=== PATIENT | male | born 1935 | race Caucasian/White ===

== ENCOUNTER 2018-08-01 10:41 | Inpatient (IN) | payer MEDICARE, OTHER ==
[~2018-08-01] VITALS: Ht 172.7 cm; Wt 71.8 kg
[2018-08-01] MEDS: K, MAG and/or Phos replacement - Verify level? MC SCH (08:00)
[2018-08-01] MEDS: pantoprazole 40 MG vial IV SCH (08:00)
[2018-08-01 11:51] LABS: BASOPHILS % (AUTO) 0.3 % (0-1); EOSINOPHILS # (AUTO) 0.2 X10'3 (0-0.9); EOSINOPHILS % (AUTO) 1.9 % (0-6); HEMATOCRIT 44.7 % (42.0-52.0); HEMOGLOBIN 14.8 g/dl (14.0-17.9); LYMPHOCYTES % (AUTO) 9.5 % (21-51); MEAN CORPUSCULAR HEMOGLOBIN 33.4 PG (27.0-31.0); MEAN CORPUSCULAR HGB CONC 33.2 % (33.0-36.5); MEAN CORPUSCULAR VOLUME 100.5 FL (78-98); MEAN PLATELET VOLUME 8.1 FL (7.4-10.4); MONOCYTES # (AUTO) 0.7 X10'3 (0-0.9); MONOCYTES % (AUTO) 6.8 % (2-12); NEUTROPHILS # (AUTO) 8.6 X10'3 (1.8-7.7); NEUTROPHILS % (AUTO) 81.5 % (42-75); PLATELET COUNT 302 X10'3 (140-440); RED BLOOD COUNT 4.44 X10'6 (4.70-6.10); RED CELL DISTRIBUTION WIDTH 17.2 % (11.5-14.5); WHITE BLOOD COUNT 10.6 X10'3 (4.5-11.0)
[2018-08-01] MEDS ORDERED: heparin 25,000 UNIT/250ml bag 250 ML IV SCH (11:59)
[2018-08-01] MEDS ORDERED: heparin 10,000 units/1 ML INJ IV ONE ×2 (12:00→12:09)
[2018-08-01] MEDS ORDERED: heparin 10,000 units/1 ML INJ IV PRN (12:00)
[2018-08-01 12:01] LABS: PARTIAL THROMBOPLASTIN TIME 26 SECONDS (22-32); PROTHROMBIN TIME 10.3 SECONDS (9.0-12.0)
[2018-08-01 12:10] LABS: ALANINE AMINOTRANSFERASE 18 U/L (12-78); ALBUMIN 3.1 G/DL (3.4-5.0); ALBUMIN/GLOBULIN RATIO 0.7 (1.1-1.5); ALKALINE PHOSPHATASE 75 IU/L (46-116); ANION GAP 13 (8-16); ASPARTATE AMINO TRANSFERASE 59 U/L (10-37); BILIRUBIN,TOTAL 0.2 MG/DL (0.1-1.0); BLOOD UREA NITROGEN 36 MG/DL (7-18); BUN/CREATININE RATIO 21.7 (5.4-32.0); CALCIUM 9.6 MG/DL (8.5-10.1); CHLORIDE 105 MMOL/L (99-107); CREATININE 1.66 MG/DL (0.60-1.10); GLUCOSE 106 MG/DL (70-104); POTASSIUM 3.9 MMOL/L (3.5-5.1); SODIUM 140 MMOL/L (135-145); TOTAL CARBON DIOXIDE 22.3 MMOL/L (24-32); TOTAL PROTEIN 7.6 G/DL (6.4-8.2); eGFR 40 ML/MIN
[2018-08-01] MEDS ORDERED: normal saline 1000ml 1,000 ML IV SCH (13:13)
[2018-08-01] MEDS ORDERED: midazolam 2 mg/2 ml injection IV PRN (13:15)
[2018-08-01] MEDS ORDERED: fentaNYL/PF 50MCG/1 ML 2ML syringe IV PRN (13:15)
[2018-08-01] MEDS ORDERED: midazolam 2 mg/2 ml injection ONE (13:20)
[2018-08-01] MEDS ORDERED: heparin 1,000 UNITS/NS 500ml 500 ML ONE ×2 (13:21→14:53)
[2018-08-01] MEDS ORDERED: iohexol 300mg/ml 100ml inj. ONE (13:21)
[2018-08-01] MEDS ORDERED: fentaNYL/PF 50MCG/1 ML 2ML syringe ONE (13:21)
[2018-08-01] MEDS ORDERED: LIDOcaine 1% (10mg/ml) 2ml vial ONE ×2 (13:23→15:19)
[2018-08-01] MEDS ORDERED: heparin 10,000 units/1 ML INJ ONE (15:19)
[2018-08-01] MEDS ORDERED: iohexol 300 MG/1 ML 50ml polymer ONE ×2 (15:35→21:20)
[2018-08-01 15:41] VITALS: BP 150/67
[2018-08-01 15:58] VITALS: BP 150/67
[2018-08-01] MEDS ORDERED: AMLO1TAB36 (16:07)
[2018-08-01] MEDS ORDERED: AMLO-93 PO (16:17)
[2018-08-01] MEDS ORDERED: ceFAZolin 2gm in dextrose, iso 100 ML IV ONE (16:45)
[2018-08-01] MEDS ORDERED: fentaNYL /PF 50mcg/ml 5ml ampule ONE ×2 (17:08→19:30)
[2018-08-01] MEDS ORDERED: rocuronium 10mg/ml inj IV ONE ×2 (17:30→20:56)
[2018-08-01] MEDS ORDERED: magnesium hydroxide 30ml (MOM) UD suspension PO PRN (17:30)
[2018-08-01] MEDS ORDERED: LIDOcaine 2% (20mg/ml) 5ml vial ONE (17:30)
[2018-08-01] MEDS ORDERED: propofol inj 20 ML IV ONE (17:30)
[2018-08-01] MEDS ORDERED: sodium phosphate inj. 30 MMOL in dextrose 5%-water 250 ML IV PRN (17:30)
[2018-08-01] MEDS ORDERED: Neutra Phos packet PO PRN (17:30)
[2018-08-01] MEDS ORDERED: magnesium Cl slow-release 64mg tablet PO PRN (17:30)
[2018-08-01] MEDS ORDERED: ondansetron/PF 4mg/2ml inj IV PRN ×4 (17:30→22:30)
[2018-08-01] MEDS ORDERED: morphine 2 MG/ML inj. syringe IV PRN (17:30)
[2018-08-01] MEDS ORDERED: sodium phosphate inj. 15 MMOL in dextrose 5%-water 150 ML IV PRN (17:30)
[2018-08-01] MEDS ORDERED: magnesium 1gm/100ml D5W IVPB 100 ML IV PRN (17:30)
[2018-08-01] MEDS ORDERED: potassium Cl 20 mEq SR tablet PO PRN ×2 (17:30)
[2018-08-01] MEDS ORDERED: magnesium 4gm in 100ml NS 100 ML IV PRN (17:30)
[2018-08-01] MEDS ORDERED: acetaminophen 325mg tablet PO PRN ×2 (17:30)
[2018-08-01] MEDS ORDERED: sevoflurane 250ml liquid IH ONE (17:32)
[2018-08-01] MEDS ORDERED: nitroGLYCERIN-Tridil 50MG/D5W 250 ML IV ONE (19:31)
[2018-08-01] MEDS ORDERED: ringers solution, lacted 1,000 ML IV SCH ×2 (21:49→21:51)
[2018-08-01] MEDS ORDERED: morphine 4 MG/ML inj SYRINge IV PRN ×4 (21:50→21:55)
[2018-08-01] MEDS ORDERED: meperidine/PF 25mg/ml syringe IV PRN ×6 (21:50→21:55)
[2018-08-01] MEDS ORDERED: proCHLORperazine 10 MG/2 ml inj IV PRN ×2 (21:50→21:55)
[2018-08-01 21:53] LABS: HEMATOCRIT 31.5 % (42.0-52.0); HEMOGLOBIN 10.4 g/dl (14.0-17.9); MEAN CORPUSCULAR HEMOGLOBIN 33.2 PG (27.0-31.0); MEAN CORPUSCULAR HGB CONC 32.9 % (33.0-36.5); MEAN CORPUSCULAR VOLUME 100.9 FL (78-98); MEAN PLATELET VOLUME 8.4 FL (7.4-10.4); PLATELET COUNT 211 X10'3 (140-440); RED BLOOD COUNT 3.12 X10'6 (4.70-6.10); RED CELL DISTRIBUTION WIDTH 17.5 % (11.5-14.5); WHITE BLOOD COUNT 7.2 X10'3 (4.5-11.0)
[2018-08-01 22:30] VITALS: BP 110/69
[2018-08-01 22:41] LABS: INR 1.2 INR; PROTHROMBIN TIME 12.5 SECONDS (9.0-12.0)
[2018-08-01] MEDS ORDERED: LORazepam 2 mg/ml vial ONE (22:43)
[2018-08-01 22:45] LABS: PARTIAL THROMBOPLASTIN TIME > 153 SECONDS (22-32)
[2018-08-01] MEDS ORDERED: dextrose 50%-water 50ml dispensing syringe IV PRN (22:45)
[2018-08-01] MEDS ORDERED: LORazepam 2 mg/ml vial IV PRN (22:45)
[2018-08-01] MEDS ORDERED: haloperidol lactate 5mg/ml inj IM PRN (22:45)
[2018-08-01] MEDS ORDERED: thiamine inj. 100 MG in normal saline 100ml IV soln 100 ML IV ONE (22:45)
[2018-08-01] MEDS ORDERED: LORazepam 2 mg/ml vial IV ONE (22:45)
[2018-08-01] MEDS: morphine 4 MG/ML inj SYRINge IV PRN (22:52)
[2018-08-01] MEDS: docusate sod 100mg capsule PO SCH (22:58)
[2018-08-01 23:00] VITALS: BP 104/50
[2018-08-01] MEDS: normal saline 1000ml 1,000 ML IV SCH (23:00)
[2018-08-01] MEDS: ceFAZolin inj. 1,000 MG in dextrose 5%-water 50ml 50 ML IV SCH (23:44)
[2018-08-01] MEDS: Potassium Cl inj 20 MEQ in ringers solution, lacted 1,000 ML IV SCH (23:44)
[2018-08-02] VITALS (23 sets, daily range): BP systolic 92–158; BP diastolic 50–77
[2018-08-02 02:45] LABS: BASOPHILS % (AUTO) 0.1 % (0-1); EOSINOPHILS # (AUTO) 0.2 X10'3 (0-0.9); EOSINOPHILS % (AUTO) 1.6 % (0-6); HEMATOCRIT 33.3 % (42.0-52.0); LYMPHOCYTES # (AUTO) 0.6 X10'3 (1.1-4.8); MEAN CORPUSCULAR HEMOGLOBIN 33.5 PG (27.0-31.0); MEAN CORPUSCULAR HGB CONC 32.9 % (33.0-36.5); MEAN CORPUSCULAR VOLUME 101.7 FL (78-98); MEAN PLATELET VOLUME 8.1 FL (7.4-10.4); MONOCYTES # (AUTO) 0.3 X10'3 (0-0.9); MONOCYTES % (AUTO) 2.4 % (2-12); NEUTROPHILS # (AUTO) 9.6 X10'3 (1.8-7.7); NEUTROPHILS % (AUTO) 89.9 % (42-75); PLATELET COUNT 227 X10'3 (140-440); RED BLOOD COUNT 3.27 X10'6 (4.70-6.10); RED CELL DISTRIBUTION WIDTH 16.7 % (11.5-14.5); WHITE BLOOD COUNT 10.7 X10'3 (4.5-11.0)
[2018-08-02 03:06] LABS: ALANINE AMINOTRANSFERASE 17 U/L (12-78); ALBUMIN 2.6 G/DL (3.4-5.0); ALBUMIN/GLOBULIN RATIO 0.8 (1.1-1.5); ALKALINE PHOSPHATASE 45 IU/L (46-116); AMYLASE 78 U/L (25-115); ANION GAP 12 (8-16); ASPARTATE AMINO TRANSFERASE 48 U/L (10-37); BILIRUBIN,TOTAL 0.2 MG/DL (0.1-1.0); BLOOD UREA NITROGEN 32 MG/DL (7-18); BUN/CREATININE RATIO 22.4 (5.4-32.0); CALCIUM 7.8 MG/DL (8.5-10.1); CHLORIDE 109 MMOL/L (99-107); CREATININE 1.43 MG/DL (0.60-1.10); GLUCOSE 117 MG/DL (70-104); LIPASE 112 U/L (73-393); MAGNESIUM 1.8 MG/DL (1.5-2.4); PHOSPHORUS 3.5 MG/DL (2.3-4.5); POTASSIUM 4.1 MMOL/L (3.5-5.1); SODIUM 142 MMOL/L (135-145); TOTAL CARBON DIOXIDE 21.2 MMOL/L (24-32); TOTAL PROTEIN 5.7 G/DL (6.4-8.2); eGFR 47 ML/MIN
[2018-08-02 03:07] LABS: INR 1.1 INR; PARTIAL THROMBOPLASTIN TIME 35 SECONDS (22-32); PROTHROMBIN TIME 10.7 SECONDS (9.0-12.0)
[2018-08-02] MEDS: LORazepam 2 mg/ml vial IV PRN ×2 (04:21→07:59)
[2018-08-02] MEDS: K, MAG and/or Phos replacement - Verify level? MC SCH (06:36)
[2018-08-02] MEDS: Potassium Cl inj 20 MEQ in ringers solution, lacted 1,000 ML IV SCH ×2 (06:43→15:08)
[2018-08-02] MEDS: normal saline 1000ml 1,000 ML IV SCH ×2 (06:44→20:06)
[2018-08-02] MEDS: nicotine 21mg patch - 24 hr TD SCH (07:48)
[2018-08-02] MEDS: pantoprazole 40 MG vial IV SCH (07:48)
[2018-08-02] MEDS: ceFAZolin inj. 1,000 MG in dextrose 5%-water 50ml 50 ML IV SCH ×2 (07:48→15:08)
[2018-08-02] MEDS: docusate sod 100mg capsule PO SCH ×2 (07:48→19:37)
[2018-08-02] MEDS: clopidogrel 75mg tablet PO SCH ×2 (08:00→08:37)
[2018-08-02] MEDS: folic acid inj. 2 MG, thiamine inj. 100 MG, MVI, adult No.4 with vit. K 10 ML in dextro... IV SCH ×4 (08:37)
[2018-08-02] MEDS ORDERED: LIDOcaine 1%/PF 5ML 10 MG/ML VIAL ONE (11:29)
[2018-08-02] MEDS: diphenhydrAMINE 25mg capsule PO PRN (19:37)
[2018-08-02] MEDS: apixaban 5mg tablet PO SCH (19:37)
[2018-08-02] MEDS: HYDROcodone/acetaminophen 10/325mg tab PO PRN (23:12)
[2018-08-03] VITALS (24 sets, daily range): BP systolic 81–143; BP diastolic 45–77
[2018-08-03] MEDS: morphine 4 MG/ML inj SYRINge IV PRN (00:35)
[2018-08-03] MEDS: Potassium Cl inj 20 MEQ in ringers solution, lacted 1,000 ML IV SCH ×4 (01:50→22:19)
[2018-08-03] MEDS: diphenhydrAMINE 25mg capsule PO PRN ×3 (02:08→19:58)
[2018-08-03 03:01] LABS: PARTIAL THROMBOPLASTIN TIME 30 SECONDS (22-32); PROTHROMBIN TIME 10.6 SECONDS (9.0-12.0)
[2018-08-03 03:09] LABS: BASOPHILS % (AUTO) 0 % (0-1); EOSINOPHILS # (AUTO) 0.1 X10'3 (0-0.9); EOSINOPHILS % (AUTO) 1.6 % (0-6); HEMATOCRIT 28.9 % (42.0-52.0); HEMOGLOBIN 9.6 g/dl (14.0-17.9); LYMPHOCYTES # (AUTO) 0.8 X10'3 (1.1-4.8); LYMPHOCYTES % (AUTO) 8.6 % (21-51); MEAN CORPUSCULAR HEMOGLOBIN 33.8 PG (27.0-31.0); MEAN CORPUSCULAR HGB CONC 33.3 % (33.0-36.5); MEAN CORPUSCULAR VOLUME 101.6 FL (78-98); MEAN PLATELET VOLUME 8.3 FL (7.4-10.4); MONOCYTES # (AUTO) 0.8 X10'3 (0-0.9); MONOCYTES % (AUTO) 8.6 % (2-12); NEUTROPHILS # (AUTO) 7.3 X10'3 (1.8-7.7); NEUTROPHILS % (AUTO) 81.2 % (42-75); PLATELET COUNT 207 X10'3 (140-440); RED BLOOD COUNT 2.84 X10'6 (4.70-6.10); RED CELL DISTRIBUTION WIDTH 17.1 % (11.5-14.5); WHITE BLOOD COUNT 8.9 X10'3 (4.5-11.0)
[2018-08-03 03:14] LABS: ALANINE AMINOTRANSFERASE 12 U/L (12-78); ALBUMIN 2.2 G/DL (3.4-5.0); ALBUMIN/GLOBULIN RATIO 0.7 (1.1-1.5); ALKALINE PHOSPHATASE 48 IU/L (46-116); AMYLASE 209 U/L (25-115); ANION GAP 9 (8-16); ASPARTATE AMINO TRANSFERASE 39 U/L (10-37); BILIRUBIN,TOTAL 0.2 MG/DL (0.1-1.0); BLOOD UREA NITROGEN 24 MG/DL (7-18); BUN/CREATININE RATIO 17.8 (5.4-32.0); CALCIUM 7.4 MG/DL (8.5-10.1); CHLORIDE 108 MMOL/L (99-107); CREATININE 1.35 MG/DL (0.60-1.10); GLUCOSE 110 MG/DL (70-104); LIPASE 1113 U/L (73-393); MAGNESIUM 1.6 MG/DL (1.5-2.4); PHOSPHORUS 2.6 MG/DL (2.3-4.5); POTASSIUM 4.1 MMOL/L (3.5-5.1); SODIUM 140 MMOL/L (135-145); TOTAL CARBON DIOXIDE 22.6 MMOL/L (24-32); TOTAL PROTEIN 5.4 G/DL (6.4-8.2); eGFR 50 ML/MIN
[2018-08-03] MEDS: lisinopril 20mg tablet PO SCH (08:00)
[2018-08-03] MEDS: K, MAG and/or Phos replacement - Verify level? MC SCH (08:00)
[2018-08-03] MEDS: amLODIPine 5mg tablet PO SCH (08:00)
[2018-08-03] MEDS: docusate sod 100mg capsule PO SCH ×2 (08:11→19:58)
[2018-08-03] MEDS: clopidogrel 75mg tablet PO SCH (08:11)
[2018-08-03] MEDS: apixaban 5mg tablet PO SCH ×2 (08:11→19:58)
[2018-08-03] MEDS: nicotine 21mg patch - 24 hr TD SCH (08:28)
[2018-08-03] MEDS: pantoprazole 40 MG vial IV SCH (08:29)
[2018-08-03] MEDS: HYDROcodone/acetaminophen 10/325mg tab PO PRN ×3 (08:32→22:18)
[2018-08-03] MEDS: folic acid inj. 2 MG, thiamine inj. 100 MG, MVI, adult No.4 with vit. K 10 ML in dextro... IV SCH ×4 (08:47)
[2018-08-03] MEDS: normal saline 1000ml 1,000 ML IV SCH ×2 (09:26→22:46)
[2018-08-03] MEDS: CefTRIAXone 2gm/D5W 50ml 50 ML IV SCH (19:59)
[2018-08-03] MEDS ORDERED: ceFAZolin 1GM/D5W- ADD-VANTAGE 50 ML IV SCH (20:00)
[2018-08-04] VITALS (23 sets, daily range): BP systolic 92–151; BP diastolic 43–80
[2018-08-04] MEDS: Potassium Cl inj 20 MEQ in ringers solution, lacted 1,000 ML IV SCH ×3 (00:30→14:00)
[2018-08-04] MEDS ORDERED: ceFAZolin 1GM/D5W- ADD-VANTAGE 50 ML IV ONE (01:30)
[2018-08-04] MEDS: diphenhydrAMINE 25mg capsule PO PRN ×4 (02:54→21:21)
[2018-08-04] MEDS: HYDROcodone/acetaminophen 10/325mg tab PO PRN ×4 (02:54→21:22)
[2018-08-04 04:53] LABS: BASOPHILS % (AUTO) 0.1 % (0-1); EOSINOPHILS # (AUTO) 0.2 X10'3 (0-0.9); EOSINOPHILS % (AUTO) 2.3 % (0-6); HEMATOCRIT 29.4 % (42.0-52.0); HEMOGLOBIN 9.5 g/dl (14.0-17.9); LYMPHOCYTES # (AUTO) 1.1 X10'3 (1.1-4.8); LYMPHOCYTES % (AUTO) 13.5 % (21-51); MEAN CORPUSCULAR HEMOGLOBIN 32.9 PG (27.0-31.0); MEAN CORPUSCULAR HGB CONC 32.2 % (33.0-36.5); MEAN CORPUSCULAR VOLUME 102.2 FL (78-98); MEAN PLATELET VOLUME 8.6 FL (7.4-10.4); MONOCYTES # (AUTO) 0.6 X10'3 (0-0.9); MONOCYTES % (AUTO) 7.6 % (2-12); NEUTROPHILS # (AUTO) 6.3 X10'3 (1.8-7.7); NEUTROPHILS % (AUTO) 76.5 % (42-75); PLATELET COUNT 207 X10'3 (140-440); RED BLOOD COUNT 2.88 X10'6 (4.70-6.10); RED CELL DISTRIBUTION WIDTH 17.1 % (11.5-14.5); WHITE BLOOD COUNT 8.3 X10'3 (4.5-11.0)
[2018-08-04 05:32] LABS: ALANINE AMINOTRANSFERASE 9 U/L (12-78); ALBUMIN/GLOBULIN RATIO 0.6 (1.1-1.5); ALKALINE PHOSPHATASE 48 IU/L (46-116); AMYLASE 140 U/L (25-115); ANION GAP 8 (8-16); ASPARTATE AMINO TRANSFERASE 34 U/L (10-37); BILIRUBIN,TOTAL 0.2 MG/DL (0.1-1.0); BLOOD UREA NITROGEN 22 MG/DL (7-18); BUN/CREATININE RATIO 17.3 (5.4-32.0); CALCIUM 7.6 MG/DL (8.5-10.1); CHLORIDE 108 MMOL/L (99-107); CREATININE 1.27 MG/DL (0.60-1.10); GLUCOSE 92 MG/DL (70-104); LIPASE 542 U/L (73-393); MAGNESIUM 1.5 MG/DL (1.5-2.4); PARTIAL THROMBOPLASTIN TIME 36 SECONDS (22-32); PHOSPHORUS 1.8 MG/DL (2.3-4.5); POTASSIUM 4.3 MMOL/L (3.5-5.1); PROTHROMBIN TIME 10.4 SECONDS (9.0-12.0); SODIUM 140 MMOL/L (135-145); TOTAL CARBON DIOXIDE 23.9 MMOL/L (24-32); TOTAL PROTEIN 5.2 G/DL (6.4-8.2); eGFR 54 ML/MIN
[2018-08-04] MEDS: K, MAG and/or Phos replacement - Verify level? MC SCH (08:00)
[2018-08-04] MEDS: amLODIPine 5mg tablet PO SCH (08:47)
[2018-08-04] MEDS: lisinopril 20mg tablet PO SCH (08:47)
[2018-08-04] MEDS: clopidogrel 75mg tablet PO SCH (08:47)
[2018-08-04] MEDS: thiamine 100mg tablet PO SCH (08:48)
[2018-08-04] MEDS: apixaban 5mg tablet PO SCH ×2 (08:48→19:30)
[2018-08-04] MEDS: docusate sod 100mg capsule PO SCH ×2 (08:48→19:30)
[2018-08-04] MEDS: multivitamins, therapeutics tablet PO SCH (08:48)
[2018-08-04] MEDS: folic acid 1mg tablet PO SCH (08:49)
[2018-08-04] MEDS: nicotine 21mg patch - 24 hr TD SCH (08:50)
[2018-08-04] MEDS: CefTRIAXone 2gm/D5W 50ml 50 ML IV SCH (08:50)
[2018-08-04] MEDS: pantoprazole 40mg Tablet.DR PO SCH (08:56)
[2018-08-04] MEDS: normal saline 1000ml 1,000 ML IV SCH (11:30)
[2018-08-04 13:11] LABS: CREATINE KINASE 600 U/L (39-308)
[2018-08-04 17:57] LABS: HEMATOCRIT 24.9 % (42.0-52.0); HEMOGLOBIN 8.1 g/dl (14.0-17.9); MEAN CORPUSCULAR HEMOGLOBIN 32.9 PG (27.0-31.0); MEAN CORPUSCULAR HGB CONC 32.5 % (33.0-36.5); MEAN CORPUSCULAR VOLUME 101.1 FL (78-98); MEAN PLATELET VOLUME 7.8 FL (7.4-10.4); PLATELET COUNT 196 X10'3 (140-440); RED BLOOD COUNT 2.46 X10'6 (4.70-6.10); RED CELL DISTRIBUTION WIDTH 16.8 % (11.5-14.5); WHITE BLOOD COUNT 7.6 X10'3 (4.5-11.0)
[2018-08-04] MEDS: cefazolin/dext.iso 2gm/100ml 100 ML IV SCH (20:07)
[2018-08-05] VITALS (22 sets, daily range): BP systolic 85–168; BP diastolic 51–86
[2018-08-05] MEDS: cefazolin/dext.iso 2gm/100ml 100 ML IV SCH (00:38)
[2018-08-05] MEDS: HYDROcodone/acetaminophen 10/325mg tab PO PRN ×3 (01:54→20:12)
[2018-08-05] MEDS: diphenhydrAMINE 25mg capsule PO PRN ×2 (03:35→17:07)
[2018-08-05 03:43] LABS: BASOPHILS # (AUTO) 0.1 X10'3 (0-0.2); BASOPHILS % (AUTO) 0.8 % (0-1); EOSINOPHILS # (AUTO) 0.4 X10'3 (0-0.9); EOSINOPHILS % (AUTO) 5.2 % (0-6); HEMATOCRIT 24.1 % (42.0-52.0); LYMPHOCYTES # (AUTO) 0.9 X10'3 (1.1-4.8); LYMPHOCYTES % (AUTO) 10.9 % (21-51); MEAN CORPUSCULAR HEMOGLOBIN 33.5 PG (27.0-31.0); MEAN CORPUSCULAR VOLUME 101.4 FL (78-98); MEAN PLATELET VOLUME 7.9 FL (7.4-10.4); MONOCYTES # (AUTO) 0.6 X10'3 (0-0.9); MONOCYTES % (AUTO) 8.3 % (2-12); NEUTROPHILS # (AUTO) 5.8 X10'3 (1.8-7.7); NEUTROPHILS % (AUTO) 74.8 % (42-75); PLATELET COUNT 205 X10'3 (140-440); RED BLOOD COUNT 2.38 X10'6 (4.70-6.10); RED CELL DISTRIBUTION WIDTH 17.1 % (11.5-14.5); WHITE BLOOD COUNT 7.8 X10'3 (4.5-11.0)
[2018-08-05 03:57] LABS: ALANINE AMINOTRANSFERASE 6 U/L (12-78); ALBUMIN 1.6 G/DL (3.4-5.0); ALBUMIN/GLOBULIN RATIO 0.5 (1.1-1.5); ALKALINE PHOSPHATASE 51 IU/L (46-116); AMYLASE 107 U/L (25-115); ANION GAP 6 (8-16); ASPARTATE AMINO TRANSFERASE 26 U/L (10-37); BILIRUBIN,TOTAL 0.2 MG/DL (0.1-1.0); BLOOD UREA NITROGEN 20 MG/DL (7-18); BUN/CREATININE RATIO 14.3 (5.4-32.0); CALCIUM 7.3 MG/DL (8.5-10.1); CHLORIDE 107 MMOL/L (99-107); GLUCOSE 90 MG/DL (70-104); LIPASE 511 U/L (73-393); MAGNESIUM 1.6 MG/DL (1.5-2.4); POTASSIUM 4.8 MMOL/L (3.5-5.1); SODIUM 137 MMOL/L (135-145); TOTAL CARBON DIOXIDE 24.2 MMOL/L (24-32); TOTAL PROTEIN 4.6 G/DL (6.4-8.2); eGFR 48 ML/MIN
[2018-08-05 04:18] LABS: INR 1.1 INR; PARTIAL THROMBOPLASTIN TIME 41 SECONDS (22-32); PROTHROMBIN TIME 11.2 SECONDS (9.0-12.0)
[2018-08-05] MEDS ORDERED: cefazolin/dext.iso 2gm/50ml 100 ML IV SCH (07:10)
[2018-08-05] MEDS: apixaban 5mg tablet PO SCH ×2 (07:26→20:12)
[2018-08-05] MEDS: clopidogrel 75mg tablet PO SCH (07:27)
[2018-08-05] MEDS: docusate sod 100mg capsule PO SCH ×2 (07:27→20:12)
[2018-08-05] MEDS: multivitamins, therapeutics tablet PO SCH (07:27)
[2018-08-05] MEDS: pantoprazole 40mg Tablet.DR PO SCH (07:27)
[2018-08-05] MEDS: folic acid 1mg tablet PO SCH (07:27)
[2018-08-05] MEDS: thiamine 100mg tablet PO SCH (07:27)
[2018-08-05] MEDS: lisinopril 20mg tablet PO SCH (07:28)
[2018-08-05] MEDS: amLODIPine 5mg tablet PO SCH (07:29)
[2018-08-05] MEDS: nicotine 21mg patch - 24 hr TD SCH (07:29)
[2018-08-05] MEDS: cefazolin/dext.iso 2gm/50ml 50 ML IV SCH ×2 (07:30→16:45)
[2018-08-05] MEDS: K, MAG and/or Phos replacement - Verify level? MC SCH (08:00)
[2018-08-06] VITALS (23 sets, daily range): BP systolic 94–157; BP diastolic 52–75
[2018-08-06] MEDS: cefazolin/dext.iso 2gm/50ml 50 ML IV SCH ×3 (00:46→15:44)
[2018-08-06] MEDS: HYDROcodone/acetaminophen 10/325mg tab PO PRN (01:13)
[2018-08-06] MEDS: diphenhydrAMINE 25mg capsule PO PRN ×4 (01:13→21:18)
[2018-08-06 03:42] LABS: BASOPHILS # (AUTO) 0.1 X10'3 (0-0.2); BASOPHILS % (AUTO) 0.8 % (0-1); EOSINOPHILS # (AUTO) 0.5 X10'3 (0-0.9); EOSINOPHILS % (AUTO) 6.5 % (0-6); HEMATOCRIT 23.6 % (42.0-52.0); HEMOGLOBIN 7.6 g/dl (14.0-17.9); LYMPHOCYTES # (AUTO) 0.8 X10'3 (1.1-4.8); LYMPHOCYTES % (AUTO) 10.2 % (21-51); MEAN CORPUSCULAR HEMOGLOBIN 32.9 PG (27.0-31.0); MEAN CORPUSCULAR VOLUME 102.8 FL (78-98); MEAN PLATELET VOLUME 8.1 FL (7.4-10.4); MONOCYTES # (AUTO) 0.7 X10'3 (0-0.9); MONOCYTES % (AUTO) 8.9 % (2-12); NEUTROPHILS # (AUTO) 5.8 X10'3 (1.8-7.7); NEUTROPHILS % (AUTO) 73.6 % (42-75); PLATELET COUNT 268 X10'3 (140-440); WHITE BLOOD COUNT 7.9 X10'3 (4.5-11.0)
[2018-08-06 03:54] LABS: INR 1.9 INR; PARTIAL THROMBOPLASTIN TIME 38 SECONDS (22-32); PROTHROMBIN TIME 11.1 SECONDS (9.0-12.0)
[2018-08-06 04:08] LABS: ALBUMIN 1.7 G/DL (3.4-5.0); ALBUMIN/GLOBULIN RATIO 0.5 (1.1-1.5); ALKALINE PHOSPHATASE 48 IU/L (46-116); AMYLASE 105 U/L (25-115); ANION GAP 8 (8-16); ASPARTATE AMINO TRANSFERASE 23 U/L (10-37); BILIRUBIN,TOTAL 0.3 MG/DL (0.1-1.0); BLOOD UREA NITROGEN 20 MG/DL (7-18); BUN/CREATININE RATIO 12.9 (5.4-32.0); CALCIUM 7.4 MG/DL (8.5-10.1); CHLORIDE 106 MMOL/L (99-107); CREATININE 1.55 MG/DL (0.60-1.10); GLUCOSE 94 MG/DL (70-104); LIPASE 497 U/L (73-393); MAGNESIUM 1.8 MG/DL (1.5-2.4); PHOSPHORUS 2.6 MG/DL (2.3-4.5); POTASSIUM 4.2 MMOL/L (3.5-5.1); SODIUM 139 MMOL/L (135-145); TOTAL CARBON DIOXIDE 25.2 MMOL/L (24-32); eGFR 43 ML/MIN
[2018-08-06 04:32] LABS: ALANINE AMINOTRANSFERASE < 6 U/L (12-78)
[2018-08-06] MEDS: K, MAG and/or Phos replacement - Verify level? MC SCH (07:34)
[2018-08-06] MEDS: docusate sod 100mg capsule PO SCH ×2 (08:00→20:00)
[2018-08-06] MEDS: nicotine 21mg patch - 24 hr TD SCH (08:44)
[2018-08-06] MEDS: lisinopril 20mg tablet PO SCH (08:45)
[2018-08-06] MEDS: clopidogrel 75mg tablet PO SCH (08:45)
[2018-08-06] MEDS: apixaban 5mg tablet PO SCH ×2 (08:46→20:22)
[2018-08-06] MEDS: thiamine 100mg tablet PO SCH (08:46)
[2018-08-06] MEDS: pantoprazole 40mg Tablet.DR PO SCH (08:46)
[2018-08-06] MEDS: amLODIPine 5mg tablet PO SCH (08:46)
[2018-08-06] MEDS: folic acid 1mg tablet PO SCH (08:46)
[2018-08-06] MEDS: multivitamins, therapeutics tablet PO SCH (08:46)
[2018-08-06] MEDS: lactobacillus rhamnosus 10,000 MMU CELLS/CAPSULE PO SCH (20:22)
[2018-08-07] VITALS (24 sets, daily range): BP systolic 112–162; BP diastolic 56–83
[2018-08-07] MEDS: cefazolin/dext.iso 2gm/50ml 50 ML IV SCH ×2 (00:30→08:41)
[2018-08-07 05:36] LABS: ALANINE AMINOTRANSFERASE 6 U/L (12-78); ALBUMIN 1.8 G/DL (3.4-5.0); ALBUMIN/GLOBULIN RATIO 0.5 (1.1-1.5); ALKALINE PHOSPHATASE 52 IU/L (46-116); ANION GAP 12 (8-16); ASPARTATE AMINO TRANSFERASE 20 U/L (10-37); BILIRUBIN,TOTAL 0.3 MG/DL (0.1-1.0); BLOOD UREA NITROGEN 16 MG/DL (7-18); BUN/CREATININE RATIO 10.4 (5.4-32.0); CALCIUM 7.9 MG/DL (8.5-10.1); CHLORIDE 106 MMOL/L (99-107); CREATININE 1.54 MG/DL (0.60-1.10); GLUCOSE 95 MG/DL (70-104); MAGNESIUM 1.9 MG/DL (1.5-2.4); PHOSPHORUS 2.5 MG/DL (2.3-4.5); POTASSIUM 4.2 MMOL/L (3.5-5.1); SODIUM 142 MMOL/L (135-145); TOTAL CARBON DIOXIDE 24.3 MMOL/L (24-32); TOTAL PROTEIN 5.2 G/DL (6.4-8.2); eGFR 43 ML/MIN
[2018-08-07 05:48] LABS: INR 1.2 INR; PARTIAL THROMBOPLASTIN TIME 39 SECONDS (22-32); PROTHROMBIN TIME 11.7 SECONDS (9.0-12.0)
[2018-08-07] MEDS: K, MAG and/or Phos replacement - Verify level? MC SCH (06:58)
[2018-08-07] MEDS: docusate sod 100mg capsule PO SCH ×2 (06:59→20:00)
[2018-08-07] MEDS: diphenhydrAMINE 25mg capsule PO PRN ×3 (08:41→20:32)
[2018-08-07] MEDS: apixaban 5mg tablet PO SCH ×2 (08:41→20:32)
[2018-08-07] MEDS: clopidogrel 75mg tablet PO SCH (08:41)
[2018-08-07] MEDS: nicotine 21mg patch - 24 hr TD SCH (08:41)
[2018-08-07] MEDS: multivitamins, therapeutics tablet PO SCH (08:41)
[2018-08-07] MEDS: thiamine 100mg tablet PO SCH (08:41)
[2018-08-07] MEDS: amLODIPine 5mg tablet PO SCH (08:42)
[2018-08-07] MEDS: pantoprazole 40mg Tablet.DR PO SCH (08:42)
[2018-08-07] MEDS: lisinopril 20mg tablet PO SCH (08:42)
[2018-08-07] MEDS: folic acid 1mg tablet PO SCH (08:42)
[2018-08-07] MEDS: lactobacillus rhamnosus 10,000 MMU CELLS/CAPSULE PO SCH ×2 (08:43→20:32)
[2018-08-08] VITALS (21 sets, daily range): BP systolic 102–155; BP diastolic 49–79
[2018-08-08 05:03] LABS: INR 1.2 INR; PARTIAL THROMBOPLASTIN TIME 34 SECONDS (22-32); PROTHROMBIN TIME 11.7 SECONDS (9.0-12.0)
[2018-08-08 05:04] LABS: ALBUMIN 1.8 G/DL (3.4-5.0); ALBUMIN/GLOBULIN RATIO 0.5 (1.1-1.5); ALKALINE PHOSPHATASE 60 IU/L (46-116); ANION GAP 6 (8-16); ASPARTATE AMINO TRANSFERASE 21 U/L (10-37); BILIRUBIN,TOTAL 0.3 MG/DL (0.1-1.0); BLOOD UREA NITROGEN 14 MG/DL (7-18); BUN/CREATININE RATIO 9.6 (5.4-32.0); CALCIUM 7.7 MG/DL (8.5-10.1); CHLORIDE 106 MMOL/L (99-107); CREATININE 1.46 MG/DL (0.60-1.10); GLUCOSE 100 MG/DL (70-104); MAGNESIUM 1.9 MG/DL (1.5-2.4); PHOSPHORUS 2.3 MG/DL (2.3-4.5); POTASSIUM 3.7 MMOL/L (3.5-5.1); SODIUM 138 MMOL/L (135-145); TOTAL CARBON DIOXIDE 25.7 MMOL/L (24-32); TOTAL PROTEIN 5.3 G/DL (6.4-8.2); eGFR 46 ML/MIN
[2018-08-08 05:06] LABS: ALANINE AMINOTRANSFERASE < 6 U/L (12-78)
[2018-08-08] MEDS: K, MAG and/or Phos replacement - Verify level? MC SCH (08:00)
[2018-08-08] MEDS: amLODIPine 5mg tablet PO SCH (08:21)
[2018-08-08] MEDS: lactobacillus rhamnosus 10,000 MMU CELLS/CAPSULE PO SCH ×2 (08:21→19:48)
[2018-08-08] MEDS: pantoprazole 40mg Tablet.DR PO SCH (08:22)
[2018-08-08] MEDS: apixaban 5mg tablet PO SCH ×2 (08:22→19:48)
[2018-08-08] MEDS: docusate sod 100mg capsule PO SCH ×2 (08:22→19:48)
[2018-08-08] MEDS: diphenhydrAMINE 25mg capsule PO PRN ×2 (08:22→19:48)
[2018-08-08] MEDS: clopidogrel 75mg tablet PO SCH (08:22)
[2018-08-08] MEDS: multivitamins, therapeutics tablet PO SCH (08:22)
[2018-08-08] MEDS: thiamine 100mg tablet PO SCH (08:22)
[2018-08-08] MEDS: folic acid 1mg tablet PO SCH (08:22)
[2018-08-08] MEDS: lisinopril 20mg tablet PO SCH (08:22)
[2018-08-08] MEDS: nicotine 21mg patch - 24 hr TD SCH (08:23)
[2018-08-08] MEDS ORDERED: sodium phosphate inj. 15 MMOL in dextrose 5%-water 150 ML IV PRN (23:01)
[2018-08-08] MEDS ORDERED: sodium phosphate inj. 30 MMOL in dextrose 5%-water 250 ML IV PRN (23:03)
[2018-08-09 05:39] LABS: BASOPHILS % (AUTO) 0.1 % (0-1); EOSINOPHILS # (AUTO) 0.4 X10'3 (0-0.9); EOSINOPHILS % (AUTO) 6.1 % (0-6); HEMATOCRIT 25.2 % (42.0-52.0); HEMOGLOBIN 8.1 g/dl (14.0-17.9); LYMPHOCYTES # (AUTO) 1.1 X10'3 (1.1-4.8); LYMPHOCYTES % (AUTO) 15.3 % (21-51); MEAN CORPUSCULAR HEMOGLOBIN 32.7 PG (27.0-31.0); MEAN CORPUSCULAR HGB CONC 32.3 % (33.0-36.5); MEAN CORPUSCULAR VOLUME 101.3 FL (78-98); MEAN PLATELET VOLUME 7.7 FL (7.4-10.4); MONOCYTES # (AUTO) 0.8 X10'3 (0-0.9); MONOCYTES % (AUTO) 10.9 % (2-12); NEUTROPHILS % (AUTO) 67.6 % (42-75); PLATELET COUNT 421 X10'3 (140-440); RED BLOOD COUNT 2.49 X10'6 (4.70-6.10); RED CELL DISTRIBUTION WIDTH 16.5 % (11.5-14.5); WHITE BLOOD COUNT 7.3 X10'3 (4.5-11.0)
[2018-08-09 05:56] LABS: INR 1.1 INR; PARTIAL THROMBOPLASTIN TIME 27 SECONDS (22-32); PROTHROMBIN TIME 10.7 SECONDS (9.0-12.0)
[2018-08-09 05:57] LABS: ALBUMIN 1.7 G/DL (3.4-5.0); ALBUMIN/GLOBULIN RATIO 0.5 (1.1-1.5); ALKALINE PHOSPHATASE 50 IU/L (46-116); ANION GAP 8 (8-16); ASPARTATE AMINO TRANSFERASE 18 U/L (10-37); BILIRUBIN,TOTAL 0.3 MG/DL (0.1-1.0); BLOOD UREA NITROGEN 15 MG/DL (7-18); BUN/CREATININE RATIO 10.2 (5.4-32.0); CALCIUM 7.8 MG/DL (8.5-10.1); CHLORIDE 107 MMOL/L (99-107); CREATININE 1.47 MG/DL (0.60-1.10); GLUCOSE 98 MG/DL (70-104); MAGNESIUM 2.1 MG/DL (1.5-2.4); PHOSPHORUS 2.7 MG/DL (2.3-4.5); POTASSIUM 3.8 MMOL/L (3.5-5.1); SODIUM 140 MMOL/L (135-145); TOTAL CARBON DIOXIDE 24.6 MMOL/L (24-32); TOTAL PROTEIN 5.4 G/DL (6.4-8.2); eGFR 46 ML/MIN
[2018-08-09 06:05] LABS: ALANINE AMINOTRANSFERASE < 6 U/L (12-78)
[2018-08-09 07:00] VITALS: BP 156/79
[2018-08-09] MEDS: K, MAG and/or Phos replacement - Verify level? MC SCH (07:36)
[2018-08-09] MEDS: nicotine 21mg patch - 24 hr TD SCH (07:50)
[2018-08-09] MEDS: pantoprazole 40mg Tablet.DR PO SCH (07:51)
[2018-08-09] MEDS: docusate sod 100mg capsule PO SCH ×2 (07:52→21:03)
[2018-08-09] MEDS: lactobacillus rhamnosus 10,000 MMU CELLS/CAPSULE PO SCH ×2 (07:52→21:03)
[2018-08-09] MEDS: apixaban 5mg tablet PO SCH ×2 (07:52→21:03)
[2018-08-09] MEDS: clopidogrel 75mg tablet PO SCH (07:53)
[2018-08-09] MEDS: multivitamins, therapeutics tablet PO SCH (07:53)
[2018-08-09] MEDS: amLODIPine 5mg tablet PO SCH (07:53)
[2018-08-09] MEDS: folic acid 1mg tablet PO SCH (07:54)
[2018-08-09] MEDS: lisinopril 20mg tablet PO SCH (07:54)
[2018-08-09] MEDS: thiamine 100mg tablet PO SCH (07:55)
[2018-08-09 11:16] VITALS: BP 105/59
[2018-08-09 20:00] VITALS: BP 112/53
[2018-08-09] MEDS: lactose-reduced food (Ensure High Protein) 237ml bottle PO SCH (21:04)
[2018-08-10] VITALS (11 sets, daily range): BP systolic 115–140; BP diastolic 51–74
[2018-08-10 05:23] LABS: BASOPHILS % (AUTO) 0.1 % (0-1); EOSINOPHILS # (AUTO) 0.5 X10'3 (0-0.9); EOSINOPHILS % (AUTO) 6.2 % (0-6); LYMPHOCYTES # (AUTO) 1.1 X10'3 (1.1-4.8); LYMPHOCYTES % (AUTO) 13.7 % (21-51); MEAN CORPUSCULAR HEMOGLOBIN 33.8 PG (27.0-31.0); MEAN CORPUSCULAR HGB CONC 33.6 % (33.0-36.5); MEAN CORPUSCULAR VOLUME 100.6 FL (78-98); MONOCYTES # (AUTO) 0.8 X10'3 (0-0.9); MONOCYTES % (AUTO) 9.8 % (2-12); NEUTROPHILS # (AUTO) 5.5 X10'3 (1.8-7.7); NEUTROPHILS % (AUTO) 70.2 % (42-75); PLATELET COUNT 453 X10'3 (140-440); RED BLOOD COUNT 2.04 X10'6 (4.70-6.10); RED CELL DISTRIBUTION WIDTH 16.5 % (11.5-14.5); WHITE BLOOD COUNT 7.9 X10'3 (4.5-11.0)
[2018-08-10 05:26] LABS: HEMOGLOBIN 6.9 g/dl (14.0-17.9)
[2018-08-10 05:27] LABS: HEMATOCRIT 20.5 % (42.0-52.0)
[2018-08-10 05:32] LABS: INR 1.1 INR; PARTIAL THROMBOPLASTIN TIME 29 SECONDS (22-32); PROTHROMBIN TIME 10.7 SECONDS (9.0-12.0)
[2018-08-10 05:45] LABS: ALANINE AMINOTRANSFERASE 8 U/L (12-78); ALBUMIN 1.8 G/DL (3.4-5.0); ALBUMIN/GLOBULIN RATIO 0.5 (1.1-1.5); ALKALINE PHOSPHATASE 50 IU/L (46-116); ANION GAP 8 (8-16); ASPARTATE AMINO TRANSFERASE 18 U/L (10-37); BILIRUBIN,TOTAL 0.3 MG/DL (0.1-1.0); BLOOD UREA NITROGEN 16 MG/DL (7-18); BUN/CREATININE RATIO 11.3 (5.4-32.0); CALCIUM 7.6 MG/DL (8.5-10.1); CHLORIDE 108 MMOL/L (99-107); CREATININE 1.42 MG/DL (0.60-1.10); GLUCOSE 104 MG/DL (70-104); MAGNESIUM 2.1 MG/DL (1.5-2.4); PHOSPHORUS 2.8 MG/DL (2.3-4.5); POTASSIUM 3.8 MMOL/L (3.5-5.1); SODIUM 141 MMOL/L (135-145); TOTAL CARBON DIOXIDE 25.5 MMOL/L (24-32); TOTAL PROTEIN 5.5 G/DL (6.4-8.2); eGFR 47 ML/MIN
[2018-08-10] MEDS: K, MAG and/or Phos replacement - Verify level? MC SCH (08:00)
[2018-08-10] MEDS: lactose-reduced food (Ensure High Protein) 237ml bottle PO SCH ×3 (08:08→18:00)
[2018-08-10] MEDS: thiamine 100mg tablet PO SCH (09:02)
[2018-08-10] MEDS: folic acid 1mg tablet PO SCH (09:02)
[2018-08-10] MEDS: lactobacillus rhamnosus 10,000 MMU CELLS/CAPSULE PO SCH ×2 (09:03→19:54)
[2018-08-10] MEDS: docusate sod 100mg capsule PO SCH ×2 (09:03→19:54)
[2018-08-10] MEDS: pantoprazole 40mg Tablet.DR PO SCH (09:04)
[2018-08-10] MEDS: lisinopril 20mg tablet PO SCH (09:04)
[2018-08-10] MEDS: amLODIPine 5mg tablet PO SCH (09:05)
[2018-08-10] MEDS: multivitamins, therapeutics tablet PO SCH (09:05)
[2018-08-10] MEDS: apixaban 5mg tablet PO SCH ×2 (09:05→19:54)
[2018-08-10] MEDS: clopidogrel 75mg tablet PO SCH (09:06)
[2018-08-10] MEDS: nicotine 21mg patch - 24 hr TD SCH (09:07)
[2018-08-10 19:13] LABS: HEMATOCRIT 26.8 % (42.0-52.0); HEMOGLOBIN 8.7 g/dl (14.0-17.9); MEAN CORPUSCULAR HEMOGLOBIN 32.7 PG (27.0-31.0); MEAN CORPUSCULAR HGB CONC 32.6 % (33.0-36.5); MEAN CORPUSCULAR VOLUME 100.2 FL (78-98); MEAN PLATELET VOLUME 7.8 FL (7.4-10.4); PLATELET COUNT 407 X10'3 (140-440); RED BLOOD COUNT 2.67 X10'6 (4.70-6.10); RED CELL DISTRIBUTION WIDTH 16.7 % (11.5-14.5); WHITE BLOOD COUNT 8.2 X10'3 (4.5-11.0)
[2018-08-11] MEDS: diphenhydrAMINE 25mg capsule PO PRN ×2 (04:54→19:10)
[2018-08-11] MEDS: HYDROcodone/acetaminophen 10/325mg tab PO PRN ×2 (04:56→10:24)
[2018-08-11 05:47] LABS: BASOPHILS % (AUTO) 0.1 % (0-1); EOSINOPHILS # (AUTO) 0.3 X10'3 (0-0.9); EOSINOPHILS % (AUTO) 3.9 % (0-6); HEMATOCRIT 25.2 % (42.0-52.0); HEMOGLOBIN 8.6 g/dl (14.0-17.9); LYMPHOCYTES % (AUTO) 11.7 % (21-51); MEAN CORPUSCULAR HGB CONC 34.1 % (33.0-36.5); MEAN CORPUSCULAR VOLUME 99.9 FL (78-98); MEAN PLATELET VOLUME 7.8 FL (7.4-10.4); MONOCYTES # (AUTO) 0.7 X10'3 (0-0.9); MONOCYTES % (AUTO) 8.3 % (2-12); NEUTROPHILS # (AUTO) 6.2 X10'3 (1.8-7.7); PLATELET COUNT 471 X10'3 (140-440); RED BLOOD COUNT 2.53 X10'6 (4.70-6.10); RED CELL DISTRIBUTION WIDTH 16.7 % (11.5-14.5); WHITE BLOOD COUNT 8.2 X10'3 (4.5-11.0)
[2018-08-11 06:00] LABS: PARTIAL THROMBOPLASTIN TIME 29 SECONDS (22-32); PROTHROMBIN TIME 10.4 SECONDS (9.0-12.0)
[2018-08-11 06:05] LABS: ALANINE AMINOTRANSFERASE 9 U/L (12-78); ALBUMIN 1.9 G/DL (3.4-5.0); ALBUMIN/GLOBULIN RATIO 0.5 (1.1-1.5); ALKALINE PHOSPHATASE 54 IU/L (46-116); ANION GAP 8 (8-16); ASPARTATE AMINO TRANSFERASE 20 U/L (10-37); BILIRUBIN,TOTAL 0.4 MG/DL (0.1-1.0); BLOOD UREA NITROGEN 17 MG/DL (7-18); BUN/CREATININE RATIO 12.4 (5.4-32.0); CALCIUM 7.7 MG/DL (8.5-10.1); CHLORIDE 107 MMOL/L (99-107); CREATININE 1.37 MG/DL (0.60-1.10); GLUCOSE 96 MG/DL (70-104); PHOSPHORUS 2.7 MG/DL (2.3-4.5); POTASSIUM 3.6 MMOL/L (3.5-5.1); SODIUM 139 MMOL/L (135-145); TOTAL CARBON DIOXIDE 24.4 MMOL/L (24-32); TOTAL PROTEIN 5.9 G/DL (6.4-8.2); eGFR 50 ML/MIN
[2018-08-11 07:00] VITALS: BP 130/68
[2018-08-11] MEDS: docusate sod 100mg capsule PO SCH ×2 (08:00→19:10)
[2018-08-11] MEDS: lactobacillus rhamnosus 10,000 MMU CELLS/CAPSULE PO SCH ×2 (08:07→19:10)
[2018-08-11] MEDS: clopidogrel 75mg tablet PO SCH (08:07)
[2018-08-11] MEDS: thiamine 100mg tablet PO SCH (08:07)
[2018-08-11] MEDS: apixaban 5mg tablet PO SCH ×2 (08:07→19:10)
[2018-08-11] MEDS: folic acid 1mg tablet PO SCH (08:08)
[2018-08-11] MEDS: amLODIPine 5mg tablet PO SCH (08:08)
[2018-08-11] MEDS: multivitamins, therapeutics tablet PO SCH (08:08)
[2018-08-11] MEDS: lisinopril 20mg tablet PO SCH (08:09)
[2018-08-11] MEDS: pantoprazole 40mg Tablet.DR PO SCH (08:10)
[2018-08-11] MEDS: nicotine 21mg patch - 24 hr TD SCH (08:10)
[2018-08-11] MEDS: K, MAG and/or Phos replacement - Verify level? MC SCH (08:15)
[2018-08-11] MEDS: lactose-reduced food (Ensure High Protein) 237ml bottle PO SCH ×3 (08:16→18:04)
[2018-08-11 11:05] VITALS: BP 113/67
[2018-08-11 11:45] VITALS: BP 113/62
[2018-08-11 12:16] VITALS: BP 130/64
[2018-08-11] MEDS ORDERED: LORazepam 2 mg/ml vial IV PRN (15:30)
[2018-08-11 18:00] VITALS: BP 130/59
[2018-08-12] VITALS: BP 130/61
[2018-08-12] MEDS: diphenhydrAMINE 25mg capsule PO PRN ×2 (00:19→09:04)
[2018-08-12 06:08] LABS: BASOPHILS % (AUTO) 0.2 % (0-1); EOSINOPHILS # (AUTO) 0.5 X10'3 (0-0.9); EOSINOPHILS % (AUTO) 6.1 % (0-6); HEMATOCRIT 24.2 % (42.0-52.0); HEMOGLOBIN 8.2 g/dl (14.0-17.9); LYMPHOCYTES # (AUTO) 1.1 X10'3 (1.1-4.8); LYMPHOCYTES % (AUTO) 14.4 % (21-51); MEAN CORPUSCULAR HEMOGLOBIN 34.4 PG (27.0-31.0); MEAN CORPUSCULAR VOLUME 101.2 FL (78-98); MONOCYTES # (AUTO) 0.6 X10'3 (0-0.9); NEUTROPHILS # (AUTO) 5.3 X10'3 (1.8-7.7); NEUTROPHILS % (AUTO) 71.3 % (42-75); PLATELET COUNT 476 X10'3 (140-440); RED BLOOD COUNT 2.39 X10'6 (4.70-6.10); RED CELL DISTRIBUTION WIDTH 16.6 % (11.5-14.5); WHITE BLOOD COUNT 7.4 X10'3 (4.5-11.0)
[2018-08-12 06:25] LABS: ALANINE AMINOTRANSFERASE 9 U/L (12-78); ALBUMIN 1.9 G/DL (3.4-5.0); ALBUMIN/GLOBULIN RATIO 0.5 (1.1-1.5); ALKALINE PHOSPHATASE 56 IU/L (46-116); ANION GAP 10 (8-16); ASPARTATE AMINO TRANSFERASE 17 U/L (10-37); BILIRUBIN,TOTAL 0.3 MG/DL (0.1-1.0); BLOOD UREA NITROGEN 20 MG/DL (7-18); BUN/CREATININE RATIO 15.3 (5.4-32.0); CALCIUM 7.7 MG/DL (8.5-10.1); CHLORIDE 106 MMOL/L (99-107); CREATININE 1.31 MG/DL (0.60-1.10); GLUCOSE 92 MG/DL (70-104); MAGNESIUM 1.9 MG/DL (1.5-2.4); PHOSPHORUS 2.7 MG/DL (2.3-4.5); POTASSIUM 3.7 MMOL/L (3.5-5.1); SODIUM 139 MMOL/L (135-145); TOTAL PROTEIN 5.6 G/DL (6.4-8.2); eGFR 52 ML/MIN
[2018-08-12] MEDS: K, MAG and/or Phos replacement - Verify level? MC SCH (08:00)
[2018-08-12] MEDS: lactose-reduced food (Ensure High Protein) 237ml bottle PO SCH ×2 (08:00→12:53)
[2018-08-12 08:25] VITALS: BP 103/57
[2018-08-12] MEDS: docusate sod 100mg capsule PO SCH (08:43)
[2018-08-12] MEDS: pantoprazole 40mg Tablet.DR PO SCH (08:43)
[2018-08-12] MEDS: lactobacillus rhamnosus 10,000 MMU CELLS/CAPSULE PO SCH (08:43)
[2018-08-12] MEDS: nicotine 21mg patch - 24 hr TD SCH (08:43)
[2018-08-12] MEDS: folic acid 1mg tablet PO SCH (08:44)
[2018-08-12] MEDS: clopidogrel 75mg tablet PO SCH (08:44)
[2018-08-12] MEDS: apixaban 5mg tablet PO SCH (08:44)
[2018-08-12] MEDS: thiamine 100mg tablet PO SCH (08:44)
[2018-08-12] MEDS: multivitamins, therapeutics tablet PO SCH (08:44)
[2018-08-12] MEDS: amLODIPine 5mg tablet PO SCH (08:47)
[2018-08-12] MEDS: lisinopril 20mg tablet PO SCH (08:47)
[2018-08-12 09:32] VITALS: BP 124/60
[2018-08-12 11:00] VITALS: BP 110/62
== END 2018-08-12 15:10 | DRG 252 ==
LOC: ER 10:42 → CICU 2S 15:28 → SUR 3N 08-08 21:50
PROVIDERS: ADMIT Surgery; ATTEND Internal Medicine
PROC: 04CK0ZZ Extirpation of Matter from Right Femoral Artery, Open Approach (ICD-10-PCS; 2018-08-01)
PROC: 0KNS0ZZ Release Right Lower Leg Muscle, Open Approach (ICD-10-PCS; 2018-08-01)
PROC: 0KNS0ZZ Release Right Lower Leg Muscle, Open Approach (ICD-10-PCS; 2018-08-01)
PROC: 0KNS0ZZ Release Right Lower Leg Muscle, Open Approach (ICD-10-PCS; 2018-08-01)
PROC: 04UK0KZ Supplement Right Femoral Artery with Nonautologous Tissue Substitute, Open Approach (ICD-10-PCS; 2018-08-01)
PROC: 041K0JQ Bypass Right Femoral Artery to Lower Extremity Artery with Synthetic Substitute, Open Approach (ICD-10-PCS; 2018-08-01)
PROC: 041K09Q Bypass Right Femoral Artery to Lower Extremity Artery with Autologous Venous Tissue, Open Approach (ICD-10-PCS; 2018-08-01)
PROC: 06BP0ZZ Excision of Right Saphenous Vein, Open Approach (ICD-10-PCS; 2018-08-01)
PROC: B41G1ZZ Fluoroscopy of Left Lower Extremity Arteries using Low Osmolar Contrast (ICD-10-PCS; 2018-08-01)
PROC: B41F1ZZ Fluoroscopy of Right Lower Extremity Arteries using Low Osmolar Contrast (ICD-10-PCS; 2018-08-01)
PROC: 05HM33Z Insertion of Infusion Device into Right Internal Jugular Vein, Percutaneous Approach (ICD-10-PCS; 2018-08-01)
PROC: B543ZZA Ultrasonography of Right Jugular Veins, Guidance (ICD-10-PCS; 2018-08-01)
PROC: 0KNS0ZZ Release Right Lower Leg Muscle, Open Approach (ICD-10-PCS; principal; 2018-08-01 17:32)
PROC: 30233N1 Transfusion of Nonautologous Red Blood Cells into Peripheral Vein, Percutaneous Approach (ICD-10-PCS; 2018-08-10)
DX: I74.3 Embolism and thrombosis of arteries of the lower extremities (principal); G92 Toxic encephalopathy; F10.239 Alcohol dependence with withdrawal, unspecified; M79.A21 Nontraumatic compartment syndrome of right lower extremity; I70.201 Unspecified atherosclerosis of native arteries of extremities, right leg; D64.9 Anemia, unspecified; E86.0 Dehydration; H91.90 Unspecified hearing loss, unspecified ear; I10 Essential (primary) hypertension; I99.8 Other disorder of circulatory system; F17.210 Nicotine dependence, cigarettes, uncomplicated; Z79.899 Other long term (current) drug therapy; Z71.41 Alcohol abuse counseling and surveillance of alcoholic; Z71.6 Tobacco abuse counseling
CPT/HCPCS: 36246; 36415; 71045; 73590; 75710; 75736; 76001; 80053; 82150; 82550; 82948; 83605; 83690; 83735; 84100; 85025; 85027; 85610; 85730; 86885; 86900; 86901; 86922; 87070; 88304; 93005; 93308; 93922; 93925; 93971; 94668; 96374; 97110; 97116; 97161; 97530; 99152; 99153; 99291; A6258; A6454; A7000; C1757; C1758; C1762; C1768; C1769; C1894; C9113; G0378; J0690; J0696; J1644; J2001; J2060; J2250; J2270; J2704; J3010; J3411; J3480; J3490; J7030; J7060; J7120; P9016; Q0163; Q9967

== ENCOUNTER 2018-10-05 09:50 | Inpatient (IN) | payer MEDICARE, OTHER ==
[~2018-10-05] VITALS: Ht 172.7 cm; Wt 66.3 kg
[2018-10-05] VITALS (7 sets, daily range): BP systolic 103–125; BP diastolic 49–66
[~2018-10-05 09:50] MED LIST: AMLO-93 PO
[2018-10-05] MEDS ORDERED: HYDROcodone/acetaminophen 5mg/325mg tablet PO ONE (10:25)
[2018-10-05 10:44] LABS: BASOPHILS % (AUTO) 0.2 % (0-1); EOSINOPHILS # (AUTO) 0.4 X10'3 (0-0.9); EOSINOPHILS % (AUTO) 5.8 % (0-6); HEMATOCRIT 27.1 % (42.0-52.0); HEMOGLOBIN 8.9 g/dl (14.0-17.9); LYMPHOCYTES # (AUTO) 1.4 X10'3 (1.1-4.8); LYMPHOCYTES % (AUTO) 22.3 % (21-51); MEAN CORPUSCULAR HEMOGLOBIN 31.6 PG (27.0-31.0); MEAN CORPUSCULAR HGB CONC 32.9 % (33.0-36.5); MEAN CORPUSCULAR VOLUME 96.2 FL (78-98); MEAN PLATELET VOLUME 7.7 FL (7.4-10.4); MONOCYTES # (AUTO) 0.6 X10'3 (0-0.9); MONOCYTES % (AUTO) 9.7 % (2-12); NEUTROPHILS # (AUTO) 3.9 X10'3 (1.8-7.7); PLATELET COUNT 384 X10'3 (140-440); RED BLOOD COUNT 2.82 X10'6 (4.70-6.10); RED CELL DISTRIBUTION WIDTH 15.6 % (11.5-14.5); WHITE BLOOD COUNT 6.3 X10'3 (4.5-11.0)
[2018-10-05 11:00] LABS: ALANINE AMINOTRANSFERASE 13 U/L (12-78); ALBUMIN 3.1 G/DL (3.4-5.0); ALBUMIN/GLOBULIN RATIO 0.7 (1.1-1.5); ALKALINE PHOSPHATASE 64 IU/L (46-116); ANION GAP 11 (8-16); ASPARTATE AMINO TRANSFERASE 16 U/L (10-37); BILIRUBIN,TOTAL 0.2 MG/DL (0.1-1.0); BLOOD UREA NITROGEN 34 MG/DL (7-18); CALCIUM 8.8 MG/DL (8.5-10.1); CHLORIDE 110 MMOL/L (99-107); CREATININE 1.48 MG/DL (0.60-1.10); GLUCOSE 95 MG/DL (70-104); POTASSIUM 5.3 MMOL/L (3.5-5.1); SODIUM 143 MMOL/L (135-145); TOTAL CARBON DIOXIDE 22.2 MMOL/L (24-32); TOTAL PROTEIN 7.3 G/DL (6.4-8.2); eGFR 45 ML/MIN
[2018-10-05] MEDS ORDERED: heparin 25,000 UNIT/250ml bag 250 ML IV SCH (12:21)
[2018-10-05] MEDS ORDERED: heparin 10,000 units/1 ML INJ IV ONE ×2 (12:25)
[2018-10-05] MEDS ORDERED: heparin 10,000 units/1 ML INJ IV PRN (12:30)
[2018-10-05] MEDS ORDERED: normal saline 1000ML IV soln IVB ONE (12:35)
[2018-10-05] MEDS ORDERED: iohexol 300mg/ml 100ml inj. ONE (12:52)
[2018-10-05] MEDS ORDERED: LIDOcaine 1%/PF 5ML 10 MG/ML VIAL ONE (12:52)
[2018-10-05 13:10] LABS: PARTIAL THROMBOPLASTIN TIME 31 SECONDS (22-32)
[2018-10-05] MEDS ORDERED: fentaNYL/PF 50MCG/1 ML 2ML syringe ONE (13:23)
[2018-10-05] MEDS ORDERED: midazolam 2 mg/2 ml injection ONE (13:23)
[2018-10-05] MEDS ORDERED: heparin 1,000 UNITS/NS 500ml 500 ML ONE ×3 (13:24→16:11)
[2018-10-05] MEDS: normal saline 1000ml 1,000 ML IV SCH (14:14)
[2018-10-05] MEDS ORDERED: ondansetron/PF 4mg/2ml inj IV PRN (14:15)
[2018-10-05] MEDS ORDERED: potassium Cl 20 mEq SR tablet PO PRN (14:15)
[2018-10-05] MEDS ORDERED: sodium phosphate inj. 30 MMOL in dextrose 5%-water 250 ML IV PRN (14:15)
[2018-10-05] MEDS ORDERED: acetaminophen 325mg tablet PO PRN ×2 (14:15)
[2018-10-05] MEDS ORDERED: magnesium hydroxide 30ml (MOM) UD suspension PO PRN (14:15)
[2018-10-05] MEDS ORDERED: dextrose 50%-water 50ml dispensing syringe IV PRN (14:15)
[2018-10-05] MEDS ORDERED: magnesium Cl slow-release 64mg tablet PO PRN (14:15)
[2018-10-05] MEDS ORDERED: sodium phosphate inj. 15 MMOL in dextrose 5%-water 150 ML IV PRN (14:15)
[2018-10-05] MEDS ORDERED: thiamine 100mg/ml 2ml inj. IV ONE (14:15)
[2018-10-05] MEDS ORDERED: magnesium 4gm in 100ml NS 100 ML IV PRN (14:15)
[2018-10-05] MEDS ORDERED: Neutra Phos packet PO PRN (14:15)
[2018-10-05] MEDS ORDERED: magnesium 2GM in 50ml NS 50 ML IV PRN (14:15)
[2018-10-05] MEDS ORDERED: haloperidol 5mg tablet PO PRN (14:15)
[2018-10-05] MEDS ORDERED: morphine 4 MG/ML inj SYRINge IV PRN (14:15)
[2018-10-05] MEDS ORDERED: tPA-cathflo 2mg/2ml IV flush 4 MG in normal saline 100ml IV soln 100 ML ICATH SCH (14:23)
[2018-10-05] MEDS ORDERED: POTASSIUM 40MEQ/500ML NS *****PERIPHERAL LINE REPLACE IV PRN (14:30)
[2018-10-05] MEDS ORDERED: morphine 2 MG/ML inj. syringe ONE (15:18)
[2018-10-05] MEDS: morphine 4 MG/ML inj SYRINge IV PRN ×2 (15:19→17:26)
[2018-10-05] MEDS ORDERED: CADD PCA waste documentation MC SCH (15:40)
[2018-10-05] MEDS: HYDROmorphone/NS 1 mg/ml CADD 50 ML IV SCH ×5 (16:06→23:00)
[2018-10-05] MEDS: heparin 1,000 UNITS/NS 500ml 500 ML IV SCH (16:19)
[2018-10-05] MEDS: pantoprazole 40 MG vial IV SCH (16:28)
--- NOTE | 2018-10-05 16:40 | NUR ---
Assessment Patient brought up to ICU from IR before room was clean patient in ICU peterson waiting on room. Bedside report from Naomie and Boaz from IR. Patients lungs clear all messer Alert to orientated but does need reorientation at times. Sheath placed on the Left Upper thigh to the right thigh tpa to right thigh to attempt to open graph on right leg. Absent pulses on the right foot and foot is cold to the touch. Doppler pulses on the left foot. Hearing aid placed in denture cup with patient label.
[2018-10-05] MEDS ORDERED: thiamine inj. 100 MG in normal saline 100ml IV soln 99 ML IV ONE (16:45)
--- NOTE | 2018-10-05 18:30 | NUR ---
Patient in room ICU 2040. I have received report from MACI Eisenberg, and had the opportunity to ask questions and assume patient care. Pt sitting up in bed occasionally and bending at waist. Pt reminded multiple times to remain flat due to risk of vessel perforation with sheath in place. Pt states he is unable to understand what is being said because he took his hearing aids out, refused to place them back when offered by staff. Pt lay back down and closed eyes. CADD button and call sousa in reach, warm blanket provided. No additional needs or requests.
[2018-10-05] MEDS: LORazepam 2 mg/ml vial IV PRN ×4 (18:45→23:55)
--- NOTE | 2018-10-05 19:15 | NUR ---
Pt sitting self up in bed and bending at waist. Pt instructed to lay down flat. Pt states he can't hear what is being said, but lays down flat. States that his "ass is hurting and needs to move it". Pt repositioned and propped with pillows. Scant amount of blood noted at sheath site, no hematoma palpated or bruising noted. Pt reminded to remain flat while sheath is in place, pt nods but unable to verbalize what has been taught. Pt offered urinal, but declined. Absent pulses to left leg, prolonged cap refill, toes cool to touch.
--- NOTE | 2018-10-05 19:30 | NUR ---
Pt continues to bend at waist and attempt to get self OOB. Pt reminded to remain flat to avoid bleeding from sheath. Pt agitated, states, "I need to get up and go number one and number two". Pt given hearing aid and assisted with placing it in left ear. Pt informed that he will need to use a bedpan and urinal due to sheath in place. Pt states that he "doesn't use those things" and "needs to stand up". Pt assisted onto bedpan without incident, but pt states he refuses to void or stool unless he is allowed OOB. Pt reminded that he has a sheath in his left leg and notified of the bleeding risk involved with excessive movement. Pt A/O x1, states we are in [place] and it is "Wednesday in June". Asking about how the fishing is and what "the big execs are planning to do in the long run". Sitter at bedside to watch pt.
[2018-10-05] MEDS: docusate sod 100mg capsule PO SCH (19:36)
[2018-10-05] MEDS: haloperidol lactate 5mg/ml inj IM PRN (20:02)
--- NOTE | 2018-10-05 20:02 | NUR ---
Pt refused PO Haldol, but continues to grow more agitated, restless, and confused. Pt given IM Haldol.
--- NOTE | 2018-10-05 20:02 | NUR ---
Pt offered PO Haldol for increasing agitation and confusion.
[2018-10-05 20:42] LABS: HEMATOCRIT 24.2 % (42.0-52.0); HEMOGLOBIN 7.9 g/dl (14.0-17.9); MEAN CORPUSCULAR HGB CONC 32.5 % (33.0-36.5); MEAN CORPUSCULAR VOLUME 95.4 FL (78-98); MEAN PLATELET VOLUME 7.7 FL (7.4-10.4); PLATELET COUNT 333 X10'3 (140-440); RED BLOOD COUNT 2.54 X10'6 (4.70-6.10); RED CELL DISTRIBUTION WIDTH 15.7 % (11.5-14.5); WHITE BLOOD COUNT 7.1 X10'3 (4.5-11.0)
--- NOTE | 2018-10-05 21:00 | NUR ---
Pt resting in bed with eyes closed, RR WNL, VSS. Pt placed on 2L via N/C for intermittent desaturation.
[2018-10-06] VITALS (21 sets, daily range): BP systolic 106–160; BP diastolic 44–107
--- NOTE | 2018-10-06 | NUR ---
Indwelling catheter placed without incident. Immediately returned large amount of urine. Secured to right leg and bag set to gravity drainage. Pt turned and repositioned, dri-flow and turn sheet replaced. 2-RN skin assessment completed by MACI Anthony, and MACI Bhagat. No skin issues noted. Optifoam applied to coccyx. Left leg maintained in a straight position per MD orders. Pt tolerated activity well.
[2018-10-06] MEDS: HYDROmorphone/NS 1 mg/ml CADD 50 ML IV SCH ×11 (01:00→22:59)
[2018-10-06] MEDS: LORazepam 2 mg/ml vial IV PRN ×4 (01:17→22:48)
[2018-10-06] MEDS: heparin 1,000 UNITS/NS 500ml 500 ML IV SCH (02:49)
--- NOTE | 2018-10-06 02:57 | NUR ---
Critical BG of 66, then 63. Pt given half an amp of D50W.
[2018-10-06] MEDS: normal saline 1000ml 1,000 ML IV SCH ×3 (03:15→20:21)
[2018-10-06 03:41] LABS: BASOPHILS % (AUTO) 0.3 % (0-1); EOSINOPHILS # (AUTO) 0.4 X10'3 (0-0.9); EOSINOPHILS % (AUTO) 6.7 % (0-6); HEMATOCRIT 23.5 % (42.0-52.0); HEMOGLOBIN 7.5 g/dl (14.0-17.9); LYMPHOCYTES # (AUTO) 1.3 X10'3 (1.1-4.8); LYMPHOCYTES % (AUTO) 20.1 % (21-51); MEAN CORPUSCULAR VOLUME 96.9 FL (78-98); MEAN PLATELET VOLUME 7.9 FL (7.4-10.4); MONOCYTES # (AUTO) 0.5 X10'3 (0-0.9); MONOCYTES % (AUTO) 8.4 % (2-12); NEUTROPHILS # (AUTO) 4.1 X10'3 (1.8-7.7); NEUTROPHILS % (AUTO) 64.5 % (42-75); PLATELET COUNT 336 X10'3 (140-440); RED BLOOD COUNT 2.43 X10'6 (4.70-6.10); RED CELL DISTRIBUTION WIDTH 15.8 % (11.5-14.5); WHITE BLOOD COUNT 6.4 X10'3 (4.5-11.0)
[2018-10-06 03:50] LABS: INR 1.1 INR; PARTIAL THROMBOPLASTIN TIME 26 SECONDS (22-32); PROTHROMBIN TIME 10.7 SECONDS (9.0-12.0)
[2018-10-06 03:51] LABS: ALANINE AMINOTRANSFERASE 14 U/L (12-78); ALBUMIN 2.6 G/DL (3.4-5.0); ALBUMIN/GLOBULIN RATIO 0.7 (1.1-1.5); ALKALINE PHOSPHATASE 57 IU/L (46-116); ANION GAP 12 (8-16); ASPARTATE AMINO TRANSFERASE 29 U/L (10-37); BILIRUBIN,TOTAL 0.2 MG/DL (0.1-1.0); BLOOD UREA NITROGEN 29 MG/DL (7-18); BUN/CREATININE RATIO 22.7 (5.4-32.0); CALCIUM 7.6 MG/DL (8.5-10.1); CHLORIDE 112 MMOL/L (99-107); CREATININE 1.28 MG/DL (0.60-1.10); GLUCOSE 125 MG/DL (70-104); POTASSIUM 4.3 MMOL/L (3.5-5.1); SODIUM 142 MMOL/L (135-145); TOTAL CARBON DIOXIDE 18.1 MMOL/L (24-32); TOTAL PROTEIN 6.3 G/DL (6.4-8.2); eGFR 54 ML/MIN
--- NOTE | 2018-10-06 03:57 | NUR ---
BG reassessed, 104. Pt in NAD. Will continue to monitor.
--- NOTE | 2018-10-06 05:55 | NUR ---
BG reassessed, 76. Pulses assessed and weak dorsalis pedis pulse noted to right foot. Site marked for future reference.
--- NOTE | 2018-10-06 06:38 | NUR ---
Problems reprioritized. Patient report given, questions answered & plan of care reviewed with MACI Moeller.
--- NOTE | 2018-10-06 06:46 | NUR ---
Patient in room ICU 2040. I have received report from Gabrielle LUX and had the opportunity to ask questions and assume patient care.
[2018-10-06] MEDS: pantoprazole 40 MG vial IV SCH (07:49)
[2018-10-06] MEDS: docusate sod 100mg capsule PO SCH ×2 (08:00→20:00)
[2018-10-06] MEDS ORDERED: iohexol 300mg/ml 100ml inj. ONE (08:15)
[2018-10-06] MEDS ORDERED: LIDOcaine 1%/PF 5ML 10 MG/ML VIAL ONE (08:15)
[2018-10-06] MEDS ORDERED: heparin 1,000 UNITS/NS 500ml 500 ML ICATH ONE (08:30)
[2018-10-06] MEDS ORDERED: LIDOcaine 1%/PF 5ML 10 MG/ML VIAL SQ ONE (08:30)
[2018-10-06] MEDS ORDERED: fentaNYL/PF 50MCG/1 ML 2ML syringe IV PRN (08:30)
[2018-10-06] MEDS ORDERED: heparin 1,000 UNITS/NS 500ml 500 ML ONE (08:35)
[2018-10-06] MEDS ORDERED: fentaNYL/PF 50MCG/1 ML 2ML syringe ONE (08:35)
[2018-10-06] MEDS ORDERED: levoFLOXACIN-Levaquin 500mg/D5 100 ML IV ONE (09:40)
[2018-10-06 10:49] LABS: HEMOGLOBIN 8.4 g/dl (14.0-17.9); MEAN CORPUSCULAR HGB CONC 32.1 % (33.0-36.5); MEAN CORPUSCULAR VOLUME 96.7 FL (78-98); MEAN PLATELET VOLUME 7.8 FL (7.4-10.4); PLATELET COUNT 348 X10'3 (140-440); RED BLOOD COUNT 2.69 X10'6 (4.70-6.10); RED CELL DISTRIBUTION WIDTH 15.6 % (11.5-14.5); WHITE BLOOD COUNT 10.4 X10'3 (4.5-11.0)
[2018-10-06] MEDS ORDERED: LISI40TA4 PO (10:53)
[2018-10-06] MEDS ORDERED: RIVA20TA PO (10:53)
[2018-10-06] MEDS ORDERED: AMLO5TAB16 PO (10:54)
[2018-10-06] MEDS ORDERED: CLOP75TA15 PO (10:57)
--- NOTE | 2018-10-06 14:55 | NUR ---
Mottling noted on Left lower extremity as well as right. This is new. Dr. Christianson informed, L Arterial US ordered. Pulses still present with Doppler.
[2018-10-06] MEDS ORDERED: albuterol 2.5 MG/3 ML nebule NEB STA (15:26)
[2018-10-06] MEDS ORDERED: LIDOcaine 1% (10mg/ml) 2ml vial ONE (15:36)
[2018-10-06] MEDS ORDERED: iohexol 300 MG/1 ML 50ml polymer ONE (15:52)
[2018-10-06] MEDS ORDERED: ceFAZolin 1000mg inj ONE ×3 (15:52→18:23)
[2018-10-06] MEDS ORDERED: heparin 10,000 units/1 ML INJ ONE (15:52)
[2018-10-06] MEDS ORDERED: fentaNYL /PF 50mcg/ml 5ml ampule ONE (16:30)
[2018-10-06] MEDS ORDERED: midazolam 2 mg/2 ml injection ONE (16:30)
--- NOTE | 2018-10-06 16:45 | NUR ---
Patient down to OR
[2018-10-06] MEDS ORDERED: rocuronium 10mg/ml inj IV ONE (17:03)
[2018-10-06] MEDS ORDERED: propofol inj 20 ML IV ONE (17:06)
[2018-10-06] MEDS ORDERED: ringers solution, lacted 1,000 ML IV SCH (17:48)
[2018-10-06] MEDS ORDERED: proCHLORperazine 10 MG/2 ml inj IV PRN (17:50)
[2018-10-06] MEDS ORDERED: ondansetron/PF 4mg/2ml inj IV PRN (17:50)
[2018-10-06] MEDS ORDERED: meperidine/PF 25mg/ml syringe IV PRN ×3 (17:50)
[2018-10-06] MEDS ORDERED: morphine 4 MG/ML inj SYRINge IV PRN ×2 (17:50)
--- NOTE | 2018-10-06 18:18 | NUR ---
Problems reprioritized. Patient report given, questions answered & plan of care reviewed with Gabrielle LUX.
[2018-10-06] MEDS ORDERED: heparin 1,000unit/ml 10ml vial 10 ML ONE (18:23)
--- NOTE | 2018-10-06 18:27 | NUR ---
Patient in room ICU 2040. I have received report from MACI Moeller, and had the opportunity to ask questions and assume patient care. Pt is currently in OR.
--- NOTE | 2018-10-06 18:30 | NUR ---
Received report from COMMUNITY LEADER regarding pt. Pt returning to ICU 2040 with CVL and ART line.
--- NOTE | 2018-10-06 19:00 | NUR ---
Pt arrived to ICU 2040 via [facility] accompanied by OR personnel. Pt on simple mask at 15 LPM. Pt responsive to painful stimuli, shivering as well. Verbal order from anesthesiologist to give Demerol [address] Christianson arrived at bedside, verbal orders for PTT and to notify him of results. Verbal order to keep SBP above 150, okay to give Levophed. Able to palpate right popliteal pulse, no distal pulses (dorsalis pedis or posterior tibialis). Dressing to right lateral thigh CDI. Left groin sheath site intact, no hematoma, oozing, or ecchymosis.
--- NOTE | 2018-10-06 19:15 | NUR ---
Son (Gerson) arrived at bedside to visit pt briefly, updated on pt's condition and POC. Son verbalizes understanding and states that he will be back tomorrow to visit when pt is more awake.
[2018-10-06] MEDS ORDERED: heparin 10,000 units/1 ML INJ IV ONE ×2 (19:20→23:00)
[2018-10-06] MEDS ORDERED: heparin 10,000 units/1 ML INJ IV PRN (19:20)
[2018-10-06] MEDS: NORepinephrine 8mg/ 250ml NS 250 ML IV SCH (19:57)
[2018-10-06 20:00] LABS: PARTIAL THROMBOPLASTIN TIME 132 SECONDS (22-32)
--- NOTE | 2018-10-06 20:00 | NUR ---
SpO2 100% on 15 LPM. O2 decreased to 10 LPM via simple mask.
--- NOTE | 2018-10-06 21:00 | NUR ---
O2 decreased to 6 LPM via simple mask.
--- NOTE | 2018-10-06 22:00 | NUR ---
Dr. Christianson notified of 1899 PTT, 134. Okay to start heparin gtt at 1000 units/hr, aware that second PTT is processing in lab.
[2018-10-06] MEDS: heparin 25,000 UNIT/250ml bag 250 ML IV SCH (22:01)
--- NOTE | 2018-10-06 22:15 | NUR ---
Pt opens eyes and verbalizes in response to tactile stimuli. Pt attempting to pull off gown and art line, states he is cold and uncomfortable. Pt repositioned and covered with warm blankets. Pt at times acknowledges verbal instruction and at others states that he cannot hear anything. Pt redirected from pulling at monitoring equipment. Pt drifts back to sleep, readily arouses to tactile stimuli.
--- NOTE | 2018-10-06 22:15 | NUR ---
Able to wean pt off of simple mask, placed on N/S at 4L. SpO2 sats maintained in high 90's.
[2018-10-06 22:23] LABS: PARTIAL THROMBOPLASTIN TIME 40 SECONDS (22-32)
--- NOTE | 2018-10-06 22:30 | NUR ---
PTT 40. Dr. Christianson notified. Orders to maintain heparin gtt at 1000 units/hr and give 2000 unit bolus.
--- NOTE | 2018-10-06 22:48 | NUR ---
Pt growing increasingly restless, attempting to get self OOB and pulling at monitoring equipment. Pt reminded to not pull on equipment and educated on it's purpose. Pt states he's "getting the hell out of here". Pt reminded that he is in hospital and just had surgery. Pt states that that's "bullshit" and is "getting up". Pt reaching and grabbing for equipment. Pt given PRN Ativan. MACI Nunes, in to assist with pt, able to reposition pt and prop with pillows. Pt able to relax and drifts back to sleep.
[2018-10-06] MEDS: ceFAZolin 1GM/D5W- ADD-VANTAGE 50 ML IV SCH (23:10)
[2018-10-07] VITALS (25 sets, daily range): BP systolic 117–169; BP diastolic 45–76
[2018-10-07] MEDS: LORazepam 2 mg/ml vial IV PRN ×6 (00:18→13:53)
--- NOTE | 2018-10-07 00:18 | NUR ---
Pt frequently shifting self in bed, pulling at equipment, and verbalizing intent to get OOB and "go home". Pt denies pain, but displays pain behaviors and states "ow" with any movement. Pt given PRN Ativan and assisted with repositioning.
[2018-10-07] MEDS: HYDROmorphone/NS 1 mg/ml CADD 50 ML IV SCH ×13 (01:00→23:33)
[2018-10-07] MEDS: haloperidol lactate 5mg/ml inj IM PRN ×2 (01:01→07:54)
--- NOTE | 2018-10-07 01:01 | NUR ---
Pt remains restless despite PRN Ativan. Given PRN IM Haldol.
[2018-10-07 01:21] LABS: INR 1.1 INR; PROTHROMBIN TIME 10.9 SECONDS (9.0-12.0)
[2018-10-07 01:24] LABS: PARTIAL THROMBOPLASTIN TIME 89 SECONDS (22-32)
--- NOTE | 2018-10-07 02:47 | NUR ---
Pt restless despite Haldol and Ativan. Makes attempts to pull equipment and get OOB. Pt more easy to redirect and educate at this time. VSS, RR WNL, NAD. Pt denies needs or requests at this time.
[2018-10-07 03:20] LABS: BASOPHILS % (AUTO) 0.1 % (0-1); EOSINOPHILS % (AUTO) 0.2 % (0-6); LYMPHOCYTES # (AUTO) 0.6 X10'3 (1.1-4.8); LYMPHOCYTES % (AUTO) 4.9 % (21-51); MEAN CORPUSCULAR HEMOGLOBIN 31.7 PG (27.0-31.0); MEAN CORPUSCULAR HGB CONC 32.6 % (33.0-36.5); MEAN CORPUSCULAR VOLUME 97.3 FL (78-98); MONOCYTES # (AUTO) 0.7 X10'3 (0-0.9); MONOCYTES % (AUTO) 6.3 % (2-12); NEUTROPHILS # (AUTO) 10.3 X10'3 (1.8-7.7); NEUTROPHILS % (AUTO) 88.5 % (42-75); PLATELET COUNT 289 X10'3 (140-440); RED BLOOD COUNT 2.21 X10'6 (4.70-6.10); RED CELL DISTRIBUTION WIDTH 15.9 % (11.5-14.5); WHITE BLOOD COUNT 11.6 X10'3 (4.5-11.0)
[2018-10-07 03:26] LABS: HEMATOCRIT 21.5 % (42.0-52.0)
[2018-10-07 03:34] LABS: ALANINE AMINOTRANSFERASE 15 U/L (12-78); ALBUMIN 2.3 G/DL (3.4-5.0); ALBUMIN/GLOBULIN RATIO 0.6 (1.1-1.5); ALKALINE PHOSPHATASE 57 IU/L (46-116); ANION GAP 13 (8-16); ASPARTATE AMINO TRANSFERASE 43 U/L (10-37); BILIRUBIN,TOTAL 0.2 MG/DL (0.1-1.0); BLOOD UREA NITROGEN 22 MG/DL (7-18); BUN/CREATININE RATIO 17.7 (5.4-32.0); CALCIUM 7.4 MG/DL (8.5-10.1); CHLORIDE 115 MMOL/L (99-107); CREATININE 1.24 MG/DL (0.60-1.10); GLUCOSE 108 MG/DL (70-104); MAGNESIUM 1.7 MG/DL (1.5-2.4); PHOSPHORUS 4.1 MG/DL (2.3-4.5); POTASSIUM 4.1 MMOL/L (3.5-5.1); SODIUM 144 MMOL/L (135-145); TOTAL CARBON DIOXIDE 15.7 MMOL/L (24-32); TOTAL PROTEIN 5.9 G/DL (6.4-8.2); eGFR 56 ML/MIN
--- NOTE | 2018-10-07 03:56 | NUR ---
Pt resuming restlessness and pulling on equipment. Pt confused, unsure of current location or date. Pt able to be redirected. VSS, RR WNL, NAD.
[2018-10-07 05:07] LABS: PARTIAL THROMBOPLASTIN TIME 71 SECONDS (22-32)
[2018-10-07] MEDS: NORepinephrine 8mg/ 250ml NS 250 ML IV SCH (05:58)
--- NOTE | 2018-10-07 06:35 | NUR ---
Problems reprioritized. Patient report given, questions answered & plan of care reviewed with MACI Moeller.
[2018-10-07 07:52] LABS: PARTIAL THROMBOPLASTIN TIME 70 SECONDS (22-32)
[2018-10-07] MEDS: clopidogrel 75mg tablet PO SCH (07:54)
[2018-10-07] MEDS: pantoprazole 40 MG vial IV SCH (07:54)
[2018-10-07] MEDS: ceFAZolin 1GM/D5W- ADD-VANTAGE 50 ML IV SCH ×3 (07:54→23:58)
[2018-10-07] MEDS: docusate sod 100mg capsule PO SCH ×2 (08:00→20:00)
[2018-10-07] MEDS: levoFLOXACIN-Levaquin 500mg/D5 100 ML IV SCH (08:01)
[2018-10-07] MEDS ORDERED: non-formulary drug (Lisinopril* 1 TAB) PO SCH (10:35)
[2018-10-07] MEDS ORDERED: iohexol 300mg/ml 100ml inj. ONE (11:45)
[2018-10-07] MEDS ORDERED: LIDOcaine 1%/PF 5ML 10 MG/ML VIAL ONE (11:46)
[2018-10-07] MEDS ORDERED: midazolam 2 mg/2 ml injection ONE (11:47)
[2018-10-07] MEDS ORDERED: fentaNYL/PF 50MCG/1 ML 2ML syringe ONE (11:47)
[2018-10-07] MEDS ORDERED: heparin 1,000 UNITS/NS 500ml 500 ML ONE (11:48)
[2018-10-07] MEDS: folic acid inj. 2 MG, thiamine inj. 100 MG, MVI, adult No.4 with vit. K 10 ML in dextro... IV SCH ×4 (13:28)
[2018-10-07] MEDS ORDERED: ceFAZolin 1000mg inj ONE (14:01)
[2018-10-07] MEDS ORDERED: heparin 10,000 units/1 ML INJ ONE (14:01)
[2018-10-07] MEDS ORDERED: iohexol 300 MG/1 ML 50ml polymer ONE ×2 (14:02→18:32)
[2018-10-07] MEDS ORDERED: LORazepam 2 mg/ml vial IV PRN (14:15)
[2018-10-07] MEDS ORDERED: LORazepam 1 MG tablet PO PRN (14:15)
[2018-10-07 14:49] LABS: PARTIAL THROMBOPLASTIN TIME 71 SECONDS (22-32)
--- NOTE | 2018-10-07 15:12 | NUR ---
Patient down to OR
[2018-10-07] MEDS ORDERED: propofol inj 20 ML IV ONE (15:14)
[2018-10-07] MEDS ORDERED: fentaNYL /PF 50mcg/ml 5ml ampule ONE (15:14)
[2018-10-07 16:01] LABS: ISTAT CREATININE 0.9 mg/dL (0.8-1.3); ISTAT HGB 9.2 g/dl (14.0-18.0); ISTAT IONIZED CALCIUM 1.19 mmol/L (1.03-1.32); ISTAT K 3.8 mmol/L (3.5-5.1); POC BUN/CREATININE RATIO 16.7 (5.4-32.0)
[2018-10-07] MEDS ORDERED: rocuronium 10mg/ml inj IV ONE (16:06)
[2018-10-07] MEDS ORDERED: ringers solution, lacted 1,000 ML IV SCH (16:13)
[2018-10-07] MEDS ORDERED: morphine 4 MG/ML inj SYRINge IV PRN ×2 (16:15)
[2018-10-07] MEDS ORDERED: ondansetron/PF 4mg/2ml inj IV PRN (16:15)
--- NOTE | 2018-10-07 18:22 | NUR ---
Problems reprioritized. Patient report given, questions answered & plan of care reviewed with Gabrielle LUX.
--- NOTE | 2018-10-07 18:22 | NUR ---
Patient in room ICU 2040. I have received report from MACI Moeller, and had the opportunity to ask questions and assume patient care. Pt is in OR at this time.
[2018-10-07 18:26] LABS: INR 1.2 INR; PROTHROMBIN TIME 12.5 SECONDS (9.0-12.0)
--- NOTE | 2018-10-07 19:22 | NUR ---
Received report from MAXIMO Shipley RN. States placing Prevena on pt at this time and will bring pt to ICU 2040 shortly. Latonia Dias RN, and Salomon, MANAGER NON PROFIT, notified. Order placed for CXR when pt arrives.
--- NOTE | 2018-10-07 19:40 | NUR ---
Pt returned to ICU 2040 via Alyssa villarreal accompanied by OR personnel and Dr. White. Pt is now intubated and has Prevena wound vac in place.
[2018-10-07] MEDS ORDERED: ipratropium/albuterol 3ml nebule NEB PRN (19:55)
--- NOTE | 2018-10-07 19:55 | NUR ---
Temp mynor not displaying temperature. Temp via temporal thermometer 35.7. Warm blankets applied to pt.
[2018-10-07] MEDS: lactobacillus rhamnosus 10,000 MMU CELLS/CAPSULE PO SCH (20:00)
--- NOTE | 2018-10-07 20:10 | NUR ---
Dr. Christianson rounding and assessing LE pulses. Strong dorsalis pedis and posterior tibialis pulses to RLE. Strong dorsalis pedis pulse to LLE. Weak posterior tibialis pulse to LLE. Dr. Christianson aware and states this is okay. Prevena dressing in place and functioning w/o issue, no bleeding or output in reservoir at this time. Incisions to right leg are CDI.
[2018-10-07] MEDS: sodium bicarbonate (8.4%) inj. 150 MEQ in dextrose 5%-water 1,000 ML IV SCH (20:18)
[2018-10-07 20:25] LABS: ABG BASE EXCESS -10.9 mmol/L (-2.0-3.0); ABG HCO3 15.1 mmol/L (22.0-26.0); ABG OXYGEN SATURATION 98.1 % (95-98); ABG PCO2 (T) 31.2 mmHg (35.0-48.0); ABG PH (T) 7.293 (7.350-7.450); ABG PO2 (T) 123.8 mmHg (83-108); FCOHb 0.3 % (0.5-1.5); FMetHb 0.2 % (0.3-1.12); FO2Hb 97.6 % (94-100); MINUTE VOLUME 6 L/min; PATIENT TEMPERATURE 35.2; PEEP 5 cm H2O; RESPIRATORY RATE 12 b/min; RESPIRATORY RATE (OBSERVED) 12 b/min; TIDAL VOLUME 500 mL; TOTAL HEMOGLOBIN 8.6 G/dl (14.0-18.0)
--- NOTE | 2018-10-07 20:40 | NUR ---
Lab called to report PTT "off the charts" and requesting redraw.
--- NOTE | 2018-10-07 20:55 | NUR ---
Dr. Christianson rounding on pt, informed about bicarb gtt, high PTT, and second PTT processing in lab. Verbal order to decrease heparin by half depending on PTT result and to call him if PTT is below 60.
--- NOTE | 2018-10-07 21:10 | NUR ---
Pt temp 35.5 via temporal thermometer, 33.5 via temp lowe despite application of warm blankets. Derick alcantara applied to pt.
[2018-10-07] MEDS: midazolam 100mg in NS 100ml 100 ML IV PRN (21:20)
[2018-10-07] MEDS: FENTANYL-0.9 % NACL/PF 100 ML IV PRN (21:21)
[2018-10-07] MEDS: heparin 25,000 UNIT/250ml bag 250 ML IV SCH (21:35)
--- NOTE | 2018-10-07 21:35 | NUR ---
Lab called to report a second elevated PTT result. Heparin gtt decreased to 500 units/hr.
[2018-10-08] VITALS (24 sets, daily range): BP systolic 112–157; BP diastolic 47–69
--- NOTE | 2018-10-08 02:30 | NUR ---
Pt temp 36.6. Derick alcantara removed.
[2018-10-08 02:39] LABS: BASOPHILS % (AUTO) 0.1 % (0-1); EOSINOPHILS # (AUTO) 0.3 X10'3 (0-0.9); EOSINOPHILS % (AUTO) 3.8 % (0-6); HEMATOCRIT 23.3 % (42.0-52.0); HEMOGLOBIN 8.1 g/dl (14.0-17.9); LYMPHOCYTES # (AUTO) 0.6 X10'3 (1.1-4.8); MEAN CORPUSCULAR HGB CONC 34.6 % (33.0-36.5); MEAN CORPUSCULAR VOLUME 95.4 FL (78-98); MONOCYTES # (AUTO) 0.6 X10'3 (0-0.9); MONOCYTES % (AUTO) 7.1 % (2-12); PLATELET COUNT 224 X10'3 (140-440); RED BLOOD COUNT 2.45 X10'6 (4.70-6.10); RED CELL DISTRIBUTION WIDTH 16.8 % (11.5-14.5); WHITE BLOOD COUNT 8.6 X10'3 (4.5-11.0)
[2018-10-08 02:45] LABS: ALANINE AMINOTRANSFERASE 13 U/L (12-78); ALBUMIN 2.1 G/DL (3.4-5.0); ALBUMIN/GLOBULIN RATIO 0.7 (1.1-1.5); ALKALINE PHOSPHATASE 49 IU/L (46-116); ANION GAP 10 (8-16); ASPARTATE AMINO TRANSFERASE 37 U/L (10-37); BILIRUBIN,TOTAL 0.5 MG/DL (0.1-1.0); BLOOD UREA NITROGEN 15 MG/DL (7-18); BUN/CREATININE RATIO 13.2 (5.4-32.0); CALCIUM 6.9 MG/DL (8.5-10.1); CHLORIDE 113 MMOL/L (99-107); CREATININE 1.14 MG/DL (0.60-1.10); GLUCOSE 125 MG/DL (70-104); MAGNESIUM 1.3 MG/DL (1.5-2.4); PHOSPHORUS 2.9 MG/DL (2.3-4.5); POTASSIUM 3.7 MMOL/L (3.5-5.1); SODIUM 143 MMOL/L (135-145); TOTAL CARBON DIOXIDE 19.6 MMOL/L (24-32); TOTAL PROTEIN 5.2 G/DL (6.4-8.2); eGFR 61 ML/MIN
[2018-10-08 03:06] LABS: INR 1.1 INR; PROTHROMBIN TIME 11.5 SECONDS (9.0-12.0)
[2018-10-08 03:07] LABS: PARTIAL THROMBOPLASTIN TIME 89 SECONDS (22-32)
[2018-10-08 04:30] LABS: ABG BASE EXCESS -5.8 mmol/L (-2.0-3.0); ABG HCO3 18.3 mmol/L (22.0-26.0); ABG OXYGEN SATURATION 98.7 % (95-98); ABG PCO2 (T) 30.8 mmHg (35.0-48.0); ABG PH (T) 7.393 (7.350-7.450); ABG PO2 (T) 150.9 mmHg (83-108); FCOHb 0.3 % (0.5-1.5); FO2Hb 98.4 % (94-100); MINUTE VOLUME 8 L/min; PATIENT TEMPERATURE 37.3; PEEP 5 cm H2O; RESPIRATORY RATE 12 b/min; RESPIRATORY RATE (OBSERVED) 14 b/min; TIDAL VOLUME 500 mL
[2018-10-08] MEDS: sodium bicarbonate (8.4%) inj. 150 MEQ in dextrose 5%-water 1,000 ML IV SCH ×3 (04:30→19:38)
--- NOTE | 2018-10-08 05:00 | NUR ---
Decreased urine output over last few hours. 0 mL urine residing in bladder on bladder scan. Scant amount of blood noted around urinary meatus. Taylor flushed with 10 mL NS, urine pale yellow, no blood blots or other s/s's of bleeding noted.
--- NOTE | 2018-10-08 06:30 | NUR ---
Patient in room ICU 2040. I have received report from Gabrielle LUX and had the opportunity to ask questions and assume patient care.
--- NOTE | 2018-10-08 06:37 | NUR ---
Problems reprioritized. Patient report given, questions answered & plan of care reviewed with MACI Moeller.
[2018-10-08] MEDS: lisinopril 20mg tablet PO SCH (07:22)
[2018-10-08] MEDS: lactobacillus rhamnosus 10,000 MMU CELLS/CAPSULE PO SCH ×2 (07:29→19:38)
[2018-10-08] MEDS: ceFAZolin 1GM/D5W- ADD-VANTAGE 50 ML IV SCH ×3 (07:30→23:49)
[2018-10-08] MEDS: clopidogrel 75mg tablet PO SCH (07:30)
[2018-10-08] MEDS: pantoprazole 40 MG vial IV SCH (07:30)
[2018-10-08] MEDS: docusate sod 100mg capsule PO SCH ×2 (07:30→19:39)
[2018-10-08] MEDS ORDERED: amLODIPine 5mg tablet PO SCH (08:00)
[2018-10-08] MEDS: levoFLOXACIN-Levaquin 500mg/D5 100 ML IV SCH (08:11)
[2018-10-08 09:19] LABS: PARTIAL THROMBOPLASTIN TIME 43 SECONDS (22-32)
[2018-10-08] MEDS: folic acid inj. 2 MG, thiamine inj. 100 MG, MVI, adult No.4 with vit. K 10 ML in dextro... IV SCH ×4 (09:22)
[2018-10-08] MEDS ORDERED: normal saline 1000ml 1,000 ML IVB ONE (10:15)
--- NOTE | 2018-10-08 12:20 | NUR ---
Initial: Pt admit for vascular claudication and ischemia to E. Pt now s/p revision femoropopliteal graft, intraoperative angiograms and endarterectomy to rt leg. Pt currently intubated. If prolonged intubation recommend continuous TF with Vital AF with goal rate of 70 mL/hr to meet nutrient needs. Pt recently admitted in July 2018 with documented PO intake 100% on regular diet. LBM 10/03, pt with routine Colace however not given d/t patient's NPO status. Will continue to follow. Recommendations: 1) Continuous TF to meet nutrient needs if prolonged intubation 2) If above, prealbumin q /; daily wt 3) Continue banana bag given Etoh hx 4) Monitor need for additional bowel care Addendum: 10/08/18 at [address] Amended: Links added.
[2018-10-08 14:29] LABS: PARTIAL THROMBOPLASTIN TIME 84 SECONDS (22-32)
[2018-10-08] MEDS: heparin 25,000 UNIT/250ml bag 250 ML IV SCH (16:47)
[2018-10-08] MEDS: mineral oil/petrolatum ophthal oint EACHEYE SCH (19:40)
[2018-10-08 20:43] LABS: PARTIAL THROMBOPLASTIN TIME 74 SECONDS (22-32)
[2018-10-08] MEDS: midazolam 100mg in NS 100ml 100 ML IV PRN (22:39)
[2018-10-08] MEDS: FENTANYL-0.9 % NACL/PF 100 ML IV PRN (22:39)
[2018-10-09] VITALS (24 sets, daily range): BP systolic 119–166; BP diastolic 53–93
[2018-10-09] MEDS: mineral oil/petrolatum ophthal oint EACHEYE SCH ×3 (02:39→13:03)
[2018-10-09] MEDS: NORepinephrine 8mg/ 250ml NS 250 ML IV SCH (02:53)
[2018-10-09 03:17] LABS: BASOPHILS % (AUTO) 0.4 % (0-1); EOSINOPHILS # (AUTO) 0.2 X10'3 (0-0.9); EOSINOPHILS % (AUTO) 2.8 % (0-6); HEMOGLOBIN 7.3 g/dl (14.0-17.9); LYMPHOCYTES # (AUTO) 0.8 X10'3 (1.1-4.8); LYMPHOCYTES % (AUTO) 9.5 % (21-51); MEAN CORPUSCULAR HEMOGLOBIN 31.5 PG (27.0-31.0); MEAN CORPUSCULAR HGB CONC 33.8 % (33.0-36.5); MEAN CORPUSCULAR VOLUME 93.1 FL (78-98); MEAN PLATELET VOLUME 8.3 FL (7.4-10.4); MONOCYTES # (AUTO) 0.7 X10'3 (0-0.9); MONOCYTES % (AUTO) 8.8 % (2-12); NEUTROPHILS # (AUTO) 6.6 X10'3 (1.8-7.7); NEUTROPHILS % (AUTO) 78.5 % (42-75); PLATELET COUNT 201 X10'3 (140-440); RED BLOOD COUNT 2.33 X10'6 (4.70-6.10); WHITE BLOOD COUNT 8.5 X10'3 (4.5-11.0)
[2018-10-09 03:20] LABS: ABG BASE EXCESS 3.1 mmol/L (-2.0-3.0); ABG HCO3 26.3 mmol/L (22.0-26.0); ABG OXYGEN SATURATION 98.7 % (95-98); ABG PCO2 (T) 33.5 mmHg (35.0-48.0); ABG PH (T) 7.512 (7.350-7.450); ABG PO2 (T) 126.3 mmHg (83-108); FCOHb 0.1 % (0.5-1.5); FMetHb 0.3 % (0.3-1.12); FO2Hb 98.3 % (94-100); MINUTE VOLUME 7 L/min; PATIENT TEMPERATURE 36.7; PEEP 5 cm H2O; RESPIRATORY RATE 12 b/min; RESPIRATORY RATE (OBSERVED) 13 b/min; TIDAL VOLUME 500 mL; TOTAL HEMOGLOBIN 7.9 G/dl (14.0-18.0)
[2018-10-09 03:30] LABS: HEMATOCRIT 21.7 % (42.0-52.0)
[2018-10-09 04:08] LABS: INR 1.2 INR
[2018-10-09 04:09] LABS: PARTIAL THROMBOPLASTIN TIME 70 SECONDS (22-32)
[2018-10-09 04:42] LABS: PLATELET ESTIMATE NORMAL; TOTAL CELLS COUNTED 100
[2018-10-09 04:44] LABS: ANISOCYTOSIS 1+
[2018-10-09 04:45] LABS: HYPOCHROMASIA 1+; POLYCHROMASIA FEW; TARGET CELLS FEW
[2018-10-09 05:09] LABS: ALANINE AMINOTRANSFERASE 12 U/L (12-78); ALBUMIN 1.7 G/DL (3.4-5.0); ALBUMIN/GLOBULIN RATIO 0.5 (1.1-1.5); ALKALINE PHOSPHATASE 56 IU/L (46-116); ANION GAP 9 (8-16); ASPARTATE AMINO TRANSFERASE 28 U/L (10-37); BILIRUBIN,TOTAL 0.3 MG/DL (0.1-1.0); BLOOD UREA NITROGEN 9 MG/DL (7-18); BUN/CREATININE RATIO 8.5 (5.4-32.0); CALCIUM 6.8 MG/DL (8.5-10.1); CHLORIDE 105 MMOL/L (99-107); CREATININE 1.06 MG/DL (0.60-1.10); GLUCOSE 139 MG/DL (70-104); MAGNESIUM 1.3 MG/DL (1.5-2.4); PHOSPHORUS 1.9 MG/DL (2.3-4.5); SODIUM 140 MMOL/L (135-145); TOTAL CARBON DIOXIDE 26.2 MMOL/L (24-32); TOTAL PROTEIN 4.8 G/DL (6.4-8.2); eGFR 67 ML/MIN
[2018-10-09 05:22] LABS: POTASSIUM 2.8 MMOL/L (3.5-5.1)
[2018-10-09] MEDS ORDERED: potassium Cl 40MEQ/250ML bag 250 ML IV PRN ×2 (05:30)
[2018-10-09] MEDS: heparin 25,000 UNIT/250ml bag 250 ML IV SCH (05:59)
--- NOTE | 2018-10-09 06:30 | NUR ---
Patient in room ICU 2040. I have received report from MACI Russell and had the opportunity to ask questions and assume patient care.
--- NOTE | 2018-10-09 06:37 | NUR ---
Problems reprioritized. Patient report given, questions answered & plan of care reviewed with Bayron LUX.
[2018-10-09] MEDS: ceFAZolin 1GM/D5W- ADD-VANTAGE 50 ML IV SCH ×2 (07:29→15:59)
[2018-10-09] MEDS: levoFLOXACIN-Levaquin 500mg/D5 100 ML IV SCH (07:29)
[2018-10-09] MEDS: lactobacillus rhamnosus 10,000 MMU CELLS/CAPSULE PO SCH ×2 (07:30→20:00)
[2018-10-09] MEDS: docusate sod 100mg capsule PO SCH ×2 (07:30→20:00)
[2018-10-09] MEDS: lisinopril 20mg tablet PO SCH (07:30)
[2018-10-09] MEDS: pantoprazole 40 MG vial IV SCH (07:30)
[2018-10-09] MEDS: clopidogrel 75mg tablet PO SCH (07:30)
[2018-10-09] MEDS: folic acid inj. 2 MG, thiamine inj. 100 MG, MVI, adult No.4 with vit. K 10 ML in dextro... IV SCH ×4 (07:32)
[2018-10-09 09:54] LABS: PARTIAL THROMBOPLASTIN TIME 80 SECONDS (22-32)
[2018-10-09] MEDS ORDERED: morphine/NS 5 mg/ml CADD 50 ML IV SCH (11:38)
[2018-10-09] MEDS ORDERED: ipratropium/albuterol 3ml nebule NEB PRN (11:40)
[2018-10-09] MEDS ORDERED: naloxone 0.4 mg/ml inj IV PRN (11:40)
[2018-10-09] MEDS ORDERED: racepinephrine 11.25mg/0.5ml nebule NEB PRN (11:40)
[2018-10-09] MEDS: normal saline 1000ml 1,000 ML IV SCH (11:47)
[2018-10-09] MEDS: HYDROmorphone/NS 1 mg/ml CADD 50 ML IV SCH ×6 (12:58→23:00)
--- NOTE | 2018-10-09 14:00 | NUR ---
Pt extubated to 2L NC. Will monitor.
[2018-10-09] MEDS ORDERED: LORazepam 2 mg/ml vial IV PRN (14:15)
[2018-10-09] MEDS ORDERED: LORazepam 1 MG tablet PO PRN (14:15)
[2018-10-09] MEDS: ipratropium/albuterol 3ml nebule NEB SCH ×2 (14:56→20:19)
[2018-10-09 15:04] LABS: PARTIAL THROMBOPLASTIN TIME 64 SECONDS (22-32)
--- NOTE | 2018-10-09 15:17 | NUR ---
Have now attempted to contact family twice according to SBAR form with no success to report the extubation of their family member. Will continue trying.
[2018-10-09] MEDS: sennosides/docusate sodium tablet PO SCH (20:00)
--- NOTE | 2018-10-09 20:15 | NUR ---
RN Note -MD Communication; Pt agitation Pt is agitated, confused, pulling at lines, trying to climb out of bed. September notified. Soft mitten restraints applied.
[2018-10-09 20:20] LABS: ABG BASE EXCESS 3.2 mmol/L (-2.0-3.0); ABG HCO3 26.3 mmol/L (22.0-26.0); ABG OXYGEN SATURATION 97.2 % (95-98); ABG PCO2 (T) 35.2 mmHg (35.0-48.0); ABG PH (T) 7.494 (7.350-7.450); ABG PO2 (T) 96.7 mmHg (83-108); FCOHb 0.3 % (0.5-1.5); FLOW 1 L/min; FMetHb 0.1 % (0.3-1.12); FO2Hb 96.8 % (94-100); PATIENT TEMPERATURE 37.5; RESPIRATORY RATE (OBSERVED) 14 b/min; TOTAL HEMOGLOBIN 8.6 G/dl (14.0-18.0)
--- NOTE | 2018-10-09 20:35 | NUR ---
RN Note -Art line DC'd Pt pulled out art line. Pressure held on site, bleeding minimal.
[2018-10-09] MEDS ORDERED: haloperidol lactate IV 5 MG/ML inj. ONE (20:37)
[2018-10-09] MEDS: haloperidol lactate 5mg/ml inj IM PRN (20:41)
[2018-10-09] MEDS: furosemide 40mg/4ml inj IV SCH (20:49)
[2018-10-10] VITALS (23 sets, daily range): BP systolic 104–164; BP diastolic 60–104
[2018-10-10] MEDS: HYDROmorphone/NS 1 mg/ml CADD 50 ML IV SCH ×12 (01:00→23:00)
[2018-10-10 02:15] LABS: INR 1.1 INR; PROTHROMBIN TIME 11.5 SECONDS (9.0-12.0)
[2018-10-10] MEDS: ipratropium/albuterol 3ml nebule NEB SCH ×4 (02:27→20:33)
[2018-10-10 04:10] LABS: BASOPHILS % (AUTO) 0.1 % (0-1); EOSINOPHILS # (AUTO) 0.1 X10'3 (0-0.9); EOSINOPHILS % (AUTO) 0.9 % (0-6); HEMATOCRIT 23.5 % (42.0-52.0); HEMOGLOBIN 7.9 g/dl (14.0-17.9); LYMPHOCYTES # (AUTO) 0.9 X10'3 (1.1-4.8); LYMPHOCYTES % (AUTO) 8.6 % (21-51); MEAN CORPUSCULAR HEMOGLOBIN 31.7 PG (27.0-31.0); MEAN CORPUSCULAR HGB CONC 33.8 % (33.0-36.5); MEAN CORPUSCULAR VOLUME 93.8 FL (78-98); MEAN PLATELET VOLUME 8.2 FL (7.4-10.4); MONOCYTES # (AUTO) 0.9 X10'3 (0-0.9); MONOCYTES % (AUTO) 9.2 % (2-12); NEUTROPHILS # (AUTO) 8.1 X10'3 (1.8-7.7); NEUTROPHILS % (AUTO) 81.2 % (42-75); PLATELET COUNT 237 X10'3 (140-440); RED BLOOD COUNT 2.51 X10'6 (4.70-6.10); RED CELL DISTRIBUTION WIDTH 15.9 % (11.5-14.5)
[2018-10-10 04:15] LABS: ALANINE AMINOTRANSFERASE 12 U/L (12-78); ALBUMIN/GLOBULIN RATIO 0.6 (1.1-1.5); ALKALINE PHOSPHATASE 67 IU/L (46-116); ANION GAP 10 (8-16); ASPARTATE AMINO TRANSFERASE 41 U/L (10-37); BILIRUBIN,TOTAL 0.4 MG/DL (0.1-1.0); BLOOD UREA NITROGEN 9 MG/DL (7-18); BUN/CREATININE RATIO 7.4 (5.4-32.0); CALCIUM 7.4 MG/DL (8.5-10.1); CHLORIDE 105 MMOL/L (99-107); CREATININE 1.21 MG/DL (0.60-1.10); GLUCOSE 108 MG/DL (70-104); MAGNESIUM 1.2 MG/DL (1.5-2.4); PHOSPHORUS 2.4 MG/DL (2.3-4.5); POTASSIUM 3.4 MMOL/L (3.5-5.1); SODIUM 141 MMOL/L (135-145); TOTAL CARBON DIOXIDE 26.2 MMOL/L (24-32); TOTAL PROTEIN 5.6 G/DL (6.4-8.2); eGFR 57 ML/MIN
[2018-10-10] MEDS: NORepinephrine 8mg/ 250ml NS 250 ML IV SCH ×2 (04:59→23:08)
[2018-10-10] MEDS ORDERED: diphenhydrAMINE 50 mg/ml inj IV PRN (05:05)
[2018-10-10 06:21] LABS: PARTIAL THROMBOPLASTIN TIME 70 SECONDS (22-32)
[2018-10-10] MEDS: lisinopril 20mg tablet PO SCH (08:00)
[2018-10-10] MEDS: lactobacillus rhamnosus 10,000 MMU CELLS/CAPSULE PO SCH ×2 (08:28→20:22)
[2018-10-10] MEDS: furosemide 40mg/4ml inj IV SCH ×2 (08:28→20:23)
[2018-10-10] MEDS: clopidogrel 75mg tablet PO SCH (08:28)
[2018-10-10] MEDS: pantoprazole 40 MG vial IV SCH (08:28)
[2018-10-10] MEDS: docusate sod 100mg capsule PO SCH ×2 (08:28→20:23)
[2018-10-10] MEDS: sennosides/docusate sodium tablet PO SCH ×2 (08:28→20:22)
[2018-10-10] MEDS: ceFAZolin 1GM/D5W- ADD-VANTAGE 50 ML IV SCH ×3 (08:29→16:03)
[2018-10-10] MEDS: levoFLOXACIN-Levaquin 500mg/D5 100 ML IV SCH (08:29)
[2018-10-10] MEDS: folic acid inj. 2 MG, thiamine inj. 100 MG, MVI, adult No.4 with vit. K 10 ML in dextro... IV SCH ×4 (08:29)
--- NOTE | 2018-10-10 11:59 | NUR ---
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 Advanced to pureed/thin liquids per [employer]. Will monitor for ONS needs; PO pending. Initial: Pt admit for vascular claudication and ischemia to RLE. Pt now s/p revision femoropopliteal graft, intraoperative angiograms and endarterectomy to rt leg. Pt currently intubated. If prolonged intubation recommend continuous TF with Vital AF with goal rate of 70 mL/hr to meet nutrient needs. Pt recently admitted in July 2018 with documented PO intake 100% on regular diet. LBM 10/03, pt with routine Colace however not given d/t patient's NPO status. Will continue to follow. Recommendations: 1) Continue pureed/thin liquids per [employer] 2) monitor for ONS needs 3) Continue banana bag or PO thiamin/folic/MVI given Etoh hx 4) wt per rx Addendum: 10/10/18 at [address] Amended: Links added.
[2018-10-10] MEDS ORDERED: potassium Cl 40MEQ/250ML bag 250 ML IV PRN (12:10)
[2018-10-10] MEDS: K and/or MAG REPLACEMENT MC SCH (13:00)
[2018-10-10 13:26] LABS: PARTIAL THROMBOPLASTIN TIME 60 SECONDS (22-32)
[2018-10-10] MEDS: heparin 25,000 UNIT/250ml bag 250 ML IV SCH (13:41)
[2018-10-10] MEDS: potassium Cl 40MEQ/250ML bag 250 ML IV PRN ×2 (13:46→17:49)
[2018-10-10 19:35] LABS: PARTIAL THROMBOPLASTIN TIME 69 SECONDS (22-32)
[2018-10-10] MEDS: apixaban 5mg tablet PO SCH (20:22)
[2018-10-11] VITALS (24 sets, daily range): BP systolic 93–163; BP diastolic 46–80
[2018-10-11] MEDS: ceFAZolin 1GM/D5W- ADD-VANTAGE 50 ML IV SCH ×4 (00:47→23:45)
[2018-10-11] MEDS: HYDROmorphone/NS 1 mg/ml CADD 50 ML IV SCH ×12 (01:00→23:00)
[2018-10-11 01:22] LABS: BASOPHILS # (AUTO) 0.1 X10'3 (0-0.2); BASOPHILS % (AUTO) 0.8 % (0-1); EOSINOPHILS # (AUTO) 0.1 X10'3 (0-0.9); EOSINOPHILS % (AUTO) 1.3 % (0-6); HEMATOCRIT 23.1 % (42.0-52.0); HEMOGLOBIN 7.9 g/dl (14.0-17.9); LYMPHOCYTES % (AUTO) 9.8 % (21-51); MEAN CORPUSCULAR HEMOGLOBIN 33.2 PG (27.0-31.0); MEAN CORPUSCULAR HGB CONC 34.3 % (33.0-36.5); MEAN CORPUSCULAR VOLUME 96.9 FL (78-98); MEAN PLATELET VOLUME 8.4 FL (7.4-10.4); MONOCYTES # (AUTO) 1.1 X10'3 (0-0.9); MONOCYTES % (AUTO) 11.3 % (2-12); NEUTROPHILS # (AUTO) 7.8 X10'3 (1.8-7.7); NEUTROPHILS % (AUTO) 76.8 % (42-75); PLATELET COUNT 293 X10'3 (140-440); RED BLOOD COUNT 2.39 X10'6 (4.70-6.10); RED CELL DISTRIBUTION WIDTH 14.8 % (11.5-14.5); WHITE BLOOD COUNT 10.1 X10'3 (4.5-11.0)
[2018-10-11 01:32] LABS: ALANINE AMINOTRANSFERASE 12 U/L (12-78); ALBUMIN 2.3 G/DL (3.4-5.0); ALBUMIN/GLOBULIN RATIO 0.6 (1.1-1.5); ALKALINE PHOSPHATASE 67 IU/L (46-116); ANION GAP 9 (8-16); ASPARTATE AMINO TRANSFERASE 40 U/L (10-37); BILIRUBIN,TOTAL 0.4 MG/DL (0.1-1.0); BLOOD UREA NITROGEN 15 MG/DL (7-18); BUN/CREATININE RATIO 9.9 (5.4-32.0); CHLORIDE 103 MMOL/L (99-107); CREATININE 1.52 MG/DL (0.60-1.10); GLUCOSE 114 MG/DL (70-104); MAGNESIUM 1.3 MG/DL (1.5-2.4); PHOSPHORUS 2.9 MG/DL (2.3-4.5); POTASSIUM 3.9 MMOL/L (3.5-5.1); SODIUM 142 MMOL/L (135-145); TOTAL CARBON DIOXIDE 29.9 MMOL/L (24-32); TOTAL PROTEIN 6.2 G/DL (6.4-8.2); eGFR 44 ML/MIN
[2018-10-11 01:35] LABS: INR 1.2 INR; PROTHROMBIN TIME 12.3 SECONDS (9.0-12.0)
[2018-10-11] MEDS: ipratropium/albuterol 3ml nebule NEB SCH ×4 (02:11→20:54)
--- NOTE | 2018-10-11 04:11 | NUR ---
accidently cleared Dilaudid cadd attempts. last attempt was
--- NOTE | 2018-10-11 06:30 | NUR ---
Patient in room CICU 2007. I have received report from off going RN and had the opportunity to ask questions and assume patient care.
[2018-10-11] MEDS: docusate sod 100mg capsule PO SCH ×3 (08:00→20:22)
[2018-10-11] MEDS: lisinopril 20mg tablet PO SCH (08:00)
[2018-10-11] MEDS: multivitamins, therapeutics tablet PO SCH ×2 (08:00→09:37)
[2018-10-11] MEDS: K and/or MAG REPLACEMENT MC SCH (08:00)
[2018-10-11] MEDS: lactobacillus rhamnosus 10,000 MMU CELLS/CAPSULE PO SCH ×3 (08:00→20:22)
[2018-10-11] MEDS: levoFLOXACIN-Levaquin 500mg/D5 100 ML IV SCH (09:34)
[2018-10-11] MEDS: thiamine 100mg tablet PO SCH (09:36)
[2018-10-11] MEDS: sennosides/docusate sodium tablet PO SCH ×2 (09:36→20:23)
[2018-10-11] MEDS: apixaban 5mg tablet PO SCH ×2 (09:37→20:22)
[2018-10-11] MEDS: folic acid 1mg tablet PO SCH (09:37)
[2018-10-11] MEDS: pantoprazole 40 MG vial IV SCH (09:38)
[2018-10-11] MEDS: clopidogrel 75mg tablet PO SCH (09:39)
[2018-10-11] MEDS: furosemide 40mg/4ml inj IV SCH (09:39)
[2018-10-11] MEDS ORDERED: nicotine 21mg patch - 24 hr TD ONE (10:50)
[2018-10-11] MEDS: normal saline 1000ml 1,000 ML IV SCH (11:38)
[2018-10-11] MEDS ORDERED: magnesium 2GM in 50ml NS 50 ML IV ONE (15:25)
[2018-10-11] MEDS ORDERED: magnesium 4gm in 100ml NS 100 ML IV ONE (15:25)
[2018-10-11] MEDS ORDERED: magnesium 4gm in 100ml NS 100 ML IV PRN (16:10)
[2018-10-11] MEDS ORDERED: magnesium 2GM in 50ml NS 50 ML IV PRN (16:10)
[2018-10-11] MEDS: lactose-reduced food (Ensure High Protein) 237ml bottle PO SCH (17:30)
--- NOTE | 2018-10-11 18:30 | NUR ---
Patient in room CICU 2007. I have received report from Karolyn LUX and had the opportunity to ask questions and assume patient care. Pt has sitter. He is laying in bed at this time. He is very [place]. Mag replacement running at this time. Dilaudid CADD pump settings: 38.7 ml residual 1.0 mg concentration 0 continuous 0.20 mg demand 10 min lockout 26 given / 29 attempts total 10 mg given unable to assess pain scale. Pt does not seem to understand how to use the scale.
[2018-10-12] VITALS (15 sets, daily range): BP systolic 97–143; BP diastolic 48–67
[2018-10-12] MEDS: HYDROmorphone/NS 1 mg/ml CADD 50 ML IV SCH ×12 (01:00→23:00)
[2018-10-12 02:25] LABS: ALANINE AMINOTRANSFERASE 10 U/L (12-78); ALBUMIN 2.1 G/DL (3.4-5.0); ALBUMIN/GLOBULIN RATIO 0.6 (1.1-1.5); ALKALINE PHOSPHATASE 56 IU/L (46-116); ANION GAP 12 (8-16); ASPARTATE AMINO TRANSFERASE 30 U/L (10-37); BILIRUBIN,TOTAL 0.5 MG/DL (0.1-1.0); BLOOD UREA NITROGEN 16 MG/DL (7-18); BUN/CREATININE RATIO 10.8 (5.4-32.0); CHLORIDE 101 MMOL/L (99-107); CREATININE 1.48 MG/DL (0.60-1.10); GLUCOSE 94 MG/DL (70-104); MAGNESIUM 3.2 MG/DL (1.5-2.4); PHOSPHORUS 3.7 MG/DL (2.3-4.5); POTASSIUM 3.4 MMOL/L (3.5-5.1); SODIUM 141 MMOL/L (135-145); TOTAL CARBON DIOXIDE 27.9 MMOL/L (24-32); TOTAL PROTEIN 5.8 G/DL (6.4-8.2); eGFR 45 ML/MIN
[2018-10-12 02:27] LABS: INR 1.6 INR; PARTIAL THROMBOPLASTIN TIME 52 SECONDS (22-32); PROTHROMBIN TIME 15.8 SECONDS (9.0-12.0)
[2018-10-12 02:34] LABS: BASOPHILS % (AUTO) 0.1 % (0-1); EOSINOPHILS # (AUTO) 0.2 X10'3 (0-0.9); EOSINOPHILS % (AUTO) 2.4 % (0-6); HEMOGLOBIN 7.1 g/dl (14.0-17.9); LYMPHOCYTES # (AUTO) 0.8 X10'3 (1.1-4.8); LYMPHOCYTES % (AUTO) 9.8 % (21-51); MEAN CORPUSCULAR HEMOGLOBIN 31.8 PG (27.0-31.0); MEAN CORPUSCULAR HGB CONC 33.7 % (33.0-36.5); MEAN CORPUSCULAR VOLUME 94.3 FL (78-98); MEAN PLATELET VOLUME 8.4 FL (7.4-10.4); MONOCYTES # (AUTO) 0.8 X10'3 (0-0.9); MONOCYTES % (AUTO) 10.4 % (2-12); NEUTROPHILS # (AUTO) 6.1 X10'3 (1.8-7.7); NEUTROPHILS % (AUTO) 77.3 % (42-75); PLATELET COUNT 265 X10'3 (140-440); RED BLOOD COUNT 2.24 X10'6 (4.70-6.10); RED CELL DISTRIBUTION WIDTH 16.2 % (11.5-14.5); WHITE BLOOD COUNT 7.8 X10'3 (4.5-11.0)
[2018-10-12 02:39] LABS: HEMATOCRIT 21.1 % (42.0-52.0)
--- NOTE | 2018-10-12 02:53 | NUR ---
Pt has CRITICAL HCT this morning of 21.1. H/H dropped from 7.9/23.1 to 7.1/21.1 Called result to September BEATRIZ Garcia and discussed how pt had 2 units transfused on the for similar lab values. Per Sep, "I'll order another type and screen because that one might be old now, and a repeat CBC and see if they want to transfuse later this morning."
[2018-10-12] MEDS: ipratropium/albuterol 3ml nebule NEB SCH ×4 (03:00→20:50)
--- NOTE | 2018-10-12 03:46 | NUR ---
Report given to Faye LUX in Surgical. POC reviewed and questions answered at this time. Packing pt belongings and meds and sending sitter up with pt.
[2018-10-12] MEDS: potassium Cl 20 mEq SR tablet PO PRN ×4 (03:58→21:51)
--- NOTE | 2018-10-12 04:35 | NUR ---
PATIENT TRANSFERRED TO ROOM 349A FROM CICU IN BED WITH 2 STAFF. PLACED COMFORTABLE IN BED. VITAL SIGNS TAKEN AND RECORDED.
[2018-10-12] MEDS: lactose-reduced food (Ensure High Protein) 237ml bottle PO SCH ×2 (07:30→18:30)
[2018-10-12] MEDS: folic acid 1mg tablet PO SCH (08:02)
[2018-10-12] MEDS: multivitamins, therapeutics tablet PO SCH (08:03)
[2018-10-12] MEDS: clopidogrel 75mg tablet PO SCH (08:03)
[2018-10-12] MEDS: thiamine 100mg tablet PO SCH (08:03)
[2018-10-12] MEDS: lactobacillus rhamnosus 10,000 MMU CELLS/CAPSULE PO SCH ×2 (08:03→20:06)
[2018-10-12] MEDS: docusate sod 100mg capsule PO SCH ×2 (08:03→20:06)
[2018-10-12] MEDS: apixaban 5mg tablet PO SCH ×2 (08:03→20:06)
[2018-10-12] MEDS: sennosides/docusate sodium tablet PO SCH ×2 (08:03→20:06)
[2018-10-12] MEDS: lisinopril 20mg tablet PO SCH (08:04)
[2018-10-12] MEDS: furosemide 40mg/4ml inj IV SCH (08:04)
[2018-10-12] MEDS: pantoprazole 40 MG vial IV SCH (08:04)
[2018-10-12] MEDS: ceFAZolin 1GM/D5W- ADD-VANTAGE 50 ML IV SCH ×3 (08:04→23:34)
[2018-10-12] MEDS: K and/or MAG REPLACEMENT MC SCH (08:18)
[2018-10-12 09:27] LABS: BASOPHILS % (AUTO) 0.4 % (0-1); EOSINOPHILS # (AUTO) 0.3 X10'3 (0-0.9); EOSINOPHILS % (AUTO) 3.2 % (0-6); HEMOGLOBIN 7.1 g/dl (14.0-17.9); LYMPHOCYTES % (AUTO) 11.5 % (21-51); MEAN CORPUSCULAR HEMOGLOBIN 30.6 PG (27.0-31.0); MEAN CORPUSCULAR HGB CONC 32.9 g/dL (33.0-36.5); MEAN PLATELET VOLUME 8.2 FL (7.4-10.4); MONOCYTES # (AUTO) 0.8 X10'3 (0-0.9); MONOCYTES % (AUTO) 10.1 % (2-12); NEUTROPHILS # (AUTO) 6.3 X10'3 (1.8-7.7); NEUTROPHILS % (AUTO) 74.8 % (42-75); PLATELET COUNT 288 X10'3 (140-440); RED BLOOD COUNT 2.33 X10'6 (4.70-6.10); RED CELL DISTRIBUTION WIDTH 15.8 % (11.5-14.5); WHITE BLOOD COUNT 8.4 X10'3 (4.5-11.0)
[2018-10-12 09:32] LABS: HEMATOCRIT 21.7 % (42.0-52.0)
[2018-10-12 09:49] LABS: ANISOCYTOSIS 1+; PLATELET ESTIMATE NORMAL
[2018-10-12] MEDS ORDERED: levoFLOXACIN 500mg tablet PO SCH (11:00)
[2018-10-12] MEDS: levoFLOXACIN 250mg tablet PO SCH (11:00)
--- NOTE | 2018-10-12 16:05 | NUR ---
Reassessment: Patient is was refusing his pureed meals, yesterday MD advanced the diet to carb controlled, heart healthy. Discussed protein supplementation with MD and his is OK with ensure high protein to be sent, recommend sending on Dinner and Breakfast. There is no PO documentation yet today. Last BM was one week ago on 10/05, patient is constipated and poor appetite likely r/t to that. Patient is receiving colace BID however he has refused it twice. Senna is also being given daily. Patient's PO intake likely to improve with a bowel movement and with the diet advanced. Has a sitter at bedside to encourage PO intake, he is oriented to name and person. Recommendations: 1) Continue carb controlled, heart healthy diet 2) Continue Ensure high protein with breakfast and dinner 3) Continue PO thiamin/folic/MVI given Etoh hx 4) wt per rx Addendum: 10/12/18 at [address] Amended: Links added.
--- NOTE | 2018-10-12 18:30 | NUR ---
Patient in room NILE 349. I have received report from Judy LUX and had the opportunity to ask questions and assume patient care.
--- NOTE | 2018-10-12 21:52 | NUR ---
PATIENT REFUSED DOSE 2/3 OF POTASSIUM REPLACEMENT, WILL CONTINUE TO MONITOR.
[2018-10-13] VITALS: BP 94/61
[2018-10-13] MEDS: HYDROmorphone/NS 1 mg/ml CADD 50 ML IV SCH ×6 (01:00→11:00)
[2018-10-13] MEDS: ipratropium/albuterol 3ml nebule NEB SCH ×2 (02:00→08:04)
--- NOTE | 2018-10-13 02:03 | NUR ---
PATIENT REFUSED DOSE 3/3 OF POTASSIUM REPLACEMENT, WILL CONTINUE TO MONITOR.
[2018-10-13] MEDS: normal saline 1000ml 1,000 ML IV SCH (04:15)
--- NOTE | 2018-10-13 04:32 | NUR ---
HOBSON CATH REMOVED PER MD ORDER, PATIENT TOLERATED WELL.
[2018-10-13 05:57] LABS: BASOPHILS % (AUTO) 0.1 % (0-1); EOSINOPHILS # (AUTO) 0.4 X10'3 (0-0.9); EOSINOPHILS % (AUTO) 5.3 % (0-6); HEMATOCRIT 23.5 % (42.0-52.0); HEMOGLOBIN 8.3 g/dl (14.0-17.9); LYMPHOCYTES # (AUTO) 1.3 X10'3 (1.1-4.8); LYMPHOCYTES % (AUTO) 18.5 % (21-51); MEAN CORPUSCULAR HGB CONC 35.3 g/dL (33.0-36.5); MEAN CORPUSCULAR VOLUME 93.6 FL (78-98); MEAN PLATELET VOLUME 8.2 FL (7.4-10.4); MONOCYTES # (AUTO) 0.7 X10'3 (0-0.9); MONOCYTES % (AUTO) 9.2 % (2-12); NEUTROPHILS # (AUTO) 4.9 X10'3 (1.8-7.7); NEUTROPHILS % (AUTO) 66.9 % (42-75); PLATELET COUNT 275 X10'3 (140-440); RED BLOOD COUNT 2.51 X10'6 (4.70-6.10); RED CELL DISTRIBUTION WIDTH 16.1 % (11.5-14.5); WHITE BLOOD COUNT 7.3 X10'3 (4.5-11.0)
[2018-10-13 06:10] LABS: INR 1.9 INR; PARTIAL THROMBOPLASTIN TIME 48 SECONDS (22-32); PROTHROMBIN TIME 18.5 SECONDS (9.0-12.0)
[2018-10-13 06:21] LABS: ALANINE AMINOTRANSFERASE 7 U/L (12-78); ALBUMIN/GLOBULIN RATIO 0.5 (1.1-1.5); ALKALINE PHOSPHATASE 52 IU/L (46-116); ANION GAP 10 (8-16); ASPARTATE AMINO TRANSFERASE 18 U/L (10-37); BILIRUBIN,TOTAL 0.4 MG/DL (0.1-1.0); BLOOD UREA NITROGEN 20 MG/DL (7-18); BUN/CREATININE RATIO 12.3 (5.4-32.0); CALCIUM 8.1 MG/DL (8.5-10.1); CHLORIDE 104 MMOL/L (99-107); CREATININE 1.62 MG/DL (0.60-1.10); GLUCOSE 100 MG/DL (70-104); PHOSPHORUS 3.1 MG/DL (2.3-4.5); POTASSIUM 3.6 MMOL/L (3.5-5.1); SODIUM 141 MMOL/L (135-145); TOTAL CARBON DIOXIDE 27.1 MMOL/L (24-32); TOTAL PROTEIN 5.7 G/DL (6.4-8.2); eGFR 41 ML/MIN
[2018-10-13 07:00] VITALS: BP 97/50
--- NOTE | 2018-10-13 07:15 | NUR ---
Problems reprioritized. Patient report given, questions answered & plan of care reviewed with Leda RN.
[2018-10-13] MEDS: lactose-reduced food (Ensure High Protein) 237ml bottle PO SCH ×2 (07:30→17:30)
[2018-10-13] MEDS: lisinopril 20mg tablet PO SCH (08:00)
[2018-10-13] MEDS: K and/or MAG REPLACEMENT MC SCH (08:00)
[2018-10-13] MEDS: thiamine 100mg tablet PO SCH (08:00)
--- NOTE | 2018-10-13 08:17 | NUR ---
pt took teeatment off face afer 1 minute
[2018-10-13] MEDS: clopidogrel 75mg tablet PO SCH (09:27)
[2018-10-13] MEDS: folic acid 1mg tablet PO SCH (09:27)
[2018-10-13] MEDS: multivitamins, therapeutics tablet PO SCH ×2 (09:27→09:29)
[2018-10-13] MEDS: sennosides/docusate sodium tablet PO SCH ×2 (09:27→20:13)
[2018-10-13] MEDS: pantoprazole 40mg Tablet.DR PO SCH (09:27)
[2018-10-13] MEDS: apixaban 5mg tablet PO SCH ×2 (09:28→20:13)
[2018-10-13] MEDS: furosemide 40mg/4ml inj IV SCH (09:28)
[2018-10-13] MEDS: docusate sod 100mg capsule PO SCH ×2 (09:28→09:29)
[2018-10-13] MEDS: ceFAZolin 1GM/D5W- ADD-VANTAGE 50 ML IV SCH (09:29)
[2018-10-13] MEDS: lactobacillus rhamnosus 10,000 MMU CELLS/CAPSULE PO SCH ×2 (09:29→20:13)
[2018-10-13] MEDS: levoFLOXACIN 250mg tablet PO SCH (11:45)
[2018-10-13] MEDS: CADD PCA waste documentation MC PRN ×2 (13:00→13:07)
[2018-10-13] MEDS: morphine 2 MG/ML inj. syringe IV PRN ×3 (14:48→22:32)
[2018-10-13] MEDS: sulfamethoxazole/trimethoprim DS (800/160mg) tablet PO SCH (15:15)
[2018-10-13 19:00] VITALS: BP 97/56
--- NOTE | 2018-10-13 20:30 | NUR ---
Spoke with Dr. Christianson regarding pt needing one IV Abx for LTAC, Dr. christianson gave orders to DC PO levaquin stating pt just needed to be on Septra DS
--- NOTE | 2018-10-13 22:13 | NUR ---
Received report from Judy LUX, pt is awake and alert, just finishing up with dinner, pt stating he is having some pain requesting pain medication, on RA, call light and items of freq use within reach.
[2018-10-13 23:30] VITALS: BP 105/59
[2018-10-14] MEDS: morphine 2 MG/ML inj. syringe IV PRN ×2 (01:45→07:01)
[2018-10-14 06:00] LABS: BASOPHILS % (AUTO) 0 % (0-1); EOSINOPHILS # (AUTO) 0.3 X10'3 (0-0.9); EOSINOPHILS % (AUTO) 5.1 % (0-6); HEMATOCRIT 22.3 % (42.0-52.0); HEMOGLOBIN 7.6 g/dl (14.0-17.9); LYMPHOCYTES # (AUTO) 1.2 X10'3 (1.1-4.8); LYMPHOCYTES % (AUTO) 19.2 % (21-51); MEAN CORPUSCULAR HEMOGLOBIN 31.7 PG (27.0-31.0); MEAN CORPUSCULAR HGB CONC 33.9 g/dL (33.0-36.5); MEAN CORPUSCULAR VOLUME 93.7 FL (78-98); MONOCYTES # (AUTO) 0.8 X10'3 (0-0.9); MONOCYTES % (AUTO) 12.2 % (2-12); NEUTROPHILS # (AUTO) 4.1 X10'3 (1.8-7.7); NEUTROPHILS % (AUTO) 63.5 % (42-75); PLATELET COUNT 281 X10'3 (140-440); RED BLOOD COUNT 2.38 X10'6 (4.70-6.10); RED CELL DISTRIBUTION WIDTH 15.4 % (11.5-14.5); WHITE BLOOD COUNT 6.4 X10'3 (4.5-11.0)
[2018-10-14 06:22] LABS: INR 2.9 INR; PARTIAL THROMBOPLASTIN TIME 45 SECONDS (22-32); PROTHROMBIN TIME 27.4 SECONDS (9.0-12.0)
--- NOTE | 2018-10-14 06:23 | NUR ---
Gave report to Patricia LUX with Ely LUX pt is resting on RA in no apparent distress, WV running@125, NS running tko, call light and items of freq use within reach.
[2018-10-14 06:29] LABS: ALANINE AMINOTRANSFERASE 7 U/L (12-78); ALBUMIN/GLOBULIN RATIO 0.5 (1.1-1.5); ALKALINE PHOSPHATASE 47 IU/L (46-116); ANION GAP 10 (8-16); ASPARTATE AMINO TRANSFERASE 16 U/L (10-37); BILIRUBIN,TOTAL 0.4 MG/DL (0.1-1.0); BLOOD UREA NITROGEN 22 MG/DL (7-18); BUN/CREATININE RATIO 13.8 (5.4-32.0); CALCIUM 7.9 MG/DL (8.5-10.1); CHLORIDE 103 MMOL/L (99-107); CREATININE 1.59 MG/DL (0.60-1.10); GLUCOSE 88 MG/DL (70-104); MAGNESIUM 1.9 MG/DL (1.5-2.4); POTASSIUM 3.5 MMOL/L (3.5-5.1); SODIUM 140 MMOL/L (135-145); TOTAL CARBON DIOXIDE 27.5 MMOL/L (24-32); TOTAL PROTEIN 5.7 G/DL (6.4-8.2); eGFR 42 ML/MIN
[2018-10-14 07:00] VITALS: BP 122/55
[2018-10-14] MEDS: thiamine 100mg tablet PO SCH (07:01)
[2018-10-14] MEDS: docusate sod 100mg capsule PO SCH ×2 (07:01→20:24)
[2018-10-14] MEDS: clopidogrel 75mg tablet PO SCH (07:01)
[2018-10-14] MEDS: folic acid 1mg tablet PO SCH (07:01)
[2018-10-14] MEDS: lisinopril 20mg tablet PO SCH (07:01)
[2018-10-14] MEDS: sennosides/docusate sodium tablet PO SCH ×2 (07:01→20:25)
[2018-10-14] MEDS: pantoprazole 40mg Tablet.DR PO SCH (07:01)
[2018-10-14] MEDS: sulfamethoxazole/trimethoprim DS (800/160mg) tablet PO SCH ×2 (07:02→20:24)
[2018-10-14] MEDS: lactobacillus rhamnosus 10,000 MMU CELLS/CAPSULE PO SCH ×2 (07:02→20:24)
[2018-10-14] MEDS: apixaban 5mg tablet PO SCH ×2 (07:02→20:24)
[2018-10-14] MEDS: lactose-reduced food (Ensure High Protein) 237ml bottle PO SCH ×2 (07:30→17:50)
--- NOTE | 2018-10-14 09:31 | NUR ---
UNABLE TO ASSESS AT THIS TIME PT HAS NOT VOIDED. ENCOURAGING FLUIDS, AND WILL CONT. TO MONITOR ON MY SHIFT. Addendum: 10/14/18 at 0936 by Ely Lu RN Amended: Links added.
--- NOTE | 2018-10-14 09:46 | NUR ---
Drop noted in H&H. MD notified. No new orders at this time.
--- NOTE | 2018-10-14 11:24 | NUR ---
Reassessment:Met pt at bedside gave written and verbal high protein education. Pt is agreeable to High Protein shake, discussed w/ dietary, and states he has some chewing problems due to rotten bottom teeth. Pt would like softer food, discussed with dietary. Pt PO has slightly increased from refusals to 0-25% and consuming 45% of his Ensure which he receives BID. Pt states PO intake is normal for him, possibly meeting nutrition needs. Pt is w/ BM after over a week w/o. LBM 10/13. Pt is w/ bed side sitter to encourage PO intake. Will continue to monitor. Recommendations: 1) Continue carb controlled, heart healthy diet 2) Continue Ensure high protein with breakfast and dinner 3) Continue PO thiamin/folic/MVI given Etoh hx 4) wt per rx Addendum: 10/14/18 at [address] Amended: Links added. Addendum: 10/14/18 at [address] RD agree with note
[2018-10-14] MEDS ORDERED: acetaminophen 325mg tablet PO PRN (11:30)
[2018-10-14] MEDS ORDERED: HYDROcodone/acetaminophen 5mg/325mg tablet PO PRN (11:30)
[2018-10-14] MEDS ORDERED: morphine 2 MG/ML inj. syringe IV PRN (12:00)
[2018-10-14] MEDS: nicotine 14mg patch - 24hr TD SCH (12:26)
[2018-10-14] MEDS: HYDROcodone/acetaminophen 10/325mg tab PO PRN ×3 (12:31→20:52)
[2018-10-14] MEDS: potassium Cl 20 mEq SR tablet PO PRN (14:30)
[2018-10-14 16:46] LABS: HEMATOCRIT 22.5 % (42.0-52.0); HEMOGLOBIN 7.6 g/dl (14.0-17.9); MEAN CORPUSCULAR HEMOGLOBIN 30.8 PG (27.0-31.0); MEAN CORPUSCULAR HGB CONC 33.7 g/dL (33.0-36.5); MEAN CORPUSCULAR VOLUME 91.2 FL (78-98); MEAN PLATELET VOLUME 8.1 FL (7.4-10.4); PLATELET COUNT 298 X10'3 (140-440); RED BLOOD COUNT 2.47 X10'6 (4.70-6.10); RED CELL DISTRIBUTION WIDTH 16.2 % (11.5-14.5); WHITE BLOOD COUNT 6.1 X10'3 (4.5-11.0)
--- NOTE | 2018-10-14 18:21 | NUR ---
Problems reprioritized. Patient report given, questions answered & plan of care reviewed with Yocasta LUX.
--- NOTE | 2018-10-14 18:25 | NUR ---
Pt. did not void this AM. made aware. N/O for NS at 100ml/hr. Bladder scan order every 2 hours. Order to straight cath if needed. Pt encouraged to drink fluids. Bladder scanned with 411 at 1030. bladder scan again at 1230 and was 375. Pt worked with PT. encouraged to ambulate and try to sit on the commode. Pt sat on the commode but only voided 50mL estimated. Straight cathed around 1330 and received 275ml output. No distention or abdomen noted.
--- NOTE | 2018-10-14 18:31 | NUR ---
Received report from Patricia LUX and Ely LUX pt is awake on RA, pt states hes not really hungry for dinner, encouraged pt to eat and drink some more due to the fact it helps with healing. pt in no apparent distress
[2018-10-14] MEDS: normal saline 1000ml 1,000 ML IV SCH (18:37)
[2018-10-14 19:00] VITALS: BP 101/52
--- NOTE | 2018-10-14 21:01 | NUR ---
Bladder scanned pt, pt had 172 in bladder
--- NOTE | 2018-10-14 23:44 | NUR ---
bladder scanned pt had 192 in bladder
[2018-10-15 00:12] VITALS: BP 103/58
[2018-10-15] MEDS: normal saline 1000ml 1,000 ML IV SCH (04:37)
[2018-10-15] MEDS: HYDROcodone/acetaminophen 10/325mg tab PO PRN ×4 (04:52→20:35)
--- NOTE | 2018-10-15 05:06 | NUR ---
bladder scanned pt, had 299 in bladder, attempted to get pt to stand and try and urinate, pt was unable to urinate, straight cathed pt and got 200 of dark missy urine out
--- NOTE | 2018-10-15 06:26 | NUR ---
Gave report to Ely LUX with Claudia RN pt is resting on RA, in no apparent distress, call light and items of freq use within reach, bed alarm and tabs on patient
[2018-10-15 06:59] LABS: BASOPHILS % (AUTO) 0.1 % (0-1); EOSINOPHILS # (AUTO) 0.3 X10'3 (0-0.9); EOSINOPHILS % (AUTO) 6.2 % (0-6); HEMOGLOBIN 7.2 g/dl (14.0-17.9); LYMPHOCYTES # (AUTO) 0.9 X10'3 (1.1-4.8); LYMPHOCYTES % (AUTO) 17.9 % (21-51); MEAN CORPUSCULAR HEMOGLOBIN 31.2 PG (27.0-31.0); MEAN CORPUSCULAR HGB CONC 33.6 g/dL (33.0-36.5); MEAN CORPUSCULAR VOLUME 92.8 FL (78-98); MEAN PLATELET VOLUME 8.2 FL (7.4-10.4); MONOCYTES # (AUTO) 0.7 X10'3 (0-0.9); MONOCYTES % (AUTO) 14.1 % (2-12); NEUTROPHILS # (AUTO) 3.1 X10'3 (1.8-7.7); NEUTROPHILS % (AUTO) 61.7 % (42-75); PLATELET COUNT 265 X10'3 (140-440); RED CELL DISTRIBUTION WIDTH 15.8 % (11.5-14.5)
[2018-10-15 07:16] LABS: HEMATOCRIT 21.4 % (42.0-52.0)
[2018-10-15 07:17] LABS: ALANINE AMINOTRANSFERASE 7 U/L (12-78); ALBUMIN/GLOBULIN RATIO 0.6 (1.1-1.5); ALKALINE PHOSPHATASE 45 IU/L (46-116); ANION GAP 9 (8-16); ASPARTATE AMINO TRANSFERASE 16 U/L (10-37); BILIRUBIN,TOTAL 0.3 MG/DL (0.1-1.0); BLOOD UREA NITROGEN 24 MG/DL (7-18); BUN/CREATININE RATIO 14.4 (5.4-32.0); CALCIUM 7.7 MG/DL (8.5-10.1); CHLORIDE 104 MMOL/L (99-107); CREATININE 1.67 MG/DL (0.60-1.10); GLUCOSE 94 MG/DL (70-104); INR 2.3 INR; PARTIAL THROMBOPLASTIN TIME 43 SECONDS (22-32); PHOSPHORUS 2.9 MG/DL (2.3-4.5); POTASSIUM 3.9 MMOL/L (3.5-5.1); PROTHROMBIN TIME 22.4 SECONDS (9.0-12.0); SODIUM 140 MMOL/L (135-145); TOTAL CARBON DIOXIDE 27.2 MMOL/L (24-32); TOTAL PROTEIN 5.5 G/DL (6.4-8.2); eGFR 39 ML/MIN
--- NOTE | 2018-10-15 07:29 | NUR ---
Critical lab of 21.4 HCT noted. made aware of lab and 7.2 hgb. Order to start NS @100ml/hr from MD Mccord and order to DC fluids from [place]. Request to clarify with Flex sent through page. Pt. has bilat. lower lung sounds heard from posterior. notified of change of condition. Awaiting response to all issues. Charge nurse notified.
[2018-10-15] MEDS: lactose-reduced food (Ensure High Protein) 237ml bottle PO SCH ×2 (07:30→17:45)
[2018-10-15 08:00] VITALS: BP 112/51
[2018-10-15] MEDS: docusate sod 100mg capsule PO SCH ×2 (08:41→20:35)
[2018-10-15] MEDS: nicotine 14mg patch - 24hr TD SCH (08:41)
[2018-10-15] MEDS: multivitamins, therapeutics tablet PO SCH (08:41)
[2018-10-15] MEDS: sennosides/docusate sodium tablet PO SCH ×2 (08:41→20:35)
[2018-10-15] MEDS: lactobacillus rhamnosus 10,000 MMU CELLS/CAPSULE PO SCH ×2 (08:42→20:35)
[2018-10-15] MEDS: sulfamethoxazole/trimethoprim DS (800/160mg) tablet PO SCH (08:42)
[2018-10-15] MEDS: folic acid 1mg tablet PO SCH (08:42)
[2018-10-15] MEDS: apixaban 5mg tablet PO SCH ×2 (08:42→20:35)
[2018-10-15] MEDS: clopidogrel 75mg tablet PO SCH (08:42)
[2018-10-15] MEDS: lisinopril 20mg tablet PO SCH (08:42)
[2018-10-15] MEDS: thiamine 100mg tablet PO SCH (08:43)
[2018-10-15] MEDS: pantoprazole 40mg Tablet.DR PO SCH (08:57)
[2018-10-15 12:00] VITALS: BP 122/59
[2018-10-15 16:31] LABS: HEMATOCRIT 22.5 % (42.0-52.0); HEMOGLOBIN 7.4 g/dl (14.0-17.9); MEAN CORPUSCULAR HEMOGLOBIN 30.5 PG (27.0-31.0); MEAN CORPUSCULAR VOLUME 92.5 FL (78-98); MEAN PLATELET VOLUME 8.3 FL (7.4-10.4); PLATELET COUNT 300 X10'3 (140-440); RED BLOOD COUNT 2.43 X10'6 (4.70-6.10); RED CELL DISTRIBUTION WIDTH 16.6 % (11.5-14.5); WHITE BLOOD COUNT 6.5 X10'3 (4.5-11.0)
--- NOTE | 2018-10-15 17:19 | NUR ---
Pt. only had 250 ml output dark missy in indwelling f/c. Poor fluid intake. Encouraging fluids and MD made aware. No new orders at this time.
[2018-10-15] MEDS ORDERED: normal saline 1000ml 1,000 ML IV ONE (17:30)
[2018-10-15] MEDS: LIDOcaine 5% patch TP SCH (17:45)
--- NOTE | 2018-10-15 18:18 | NUR ---
Received report from Ely LUX and Patricia LUX pt is awake and alert on RA, eating dinner in no apparent distress,
--- NOTE | 2018-10-15 18:34 | NUR ---
Problems reprioritized. Patient report given, questions answered & plan of care reviewed with Tala.
[2018-10-15 18:59] LABS: TOTAL PROTEIN,URINE RANDOM 104.6 MG/DL
[2018-10-15 19:00] VITALS: BP 96/46
[2018-10-15] MEDS: tamsulosin 0.4mg capsule PO SCH (20:35)
--- NOTE | 2018-10-15 21:04 | NUR ---
encouraged pt to walk he refused states he wants to sleep
[2018-10-15 23:59] VITALS: BP 103/64
[2018-10-16 06:12] LABS: BASOPHILS % (AUTO) 0.1 % (0-1); EOSINOPHILS # (AUTO) 0.2 X10'3 (0-0.9); EOSINOPHILS % (AUTO) 2.5 % (0-6); LYMPHOCYTES % (AUTO) 13.4 % (21-51); MEAN CORPUSCULAR HEMOGLOBIN 31.3 PG (27.0-31.0); MEAN CORPUSCULAR HGB CONC 33.3 g/dL (33.0-36.5); MEAN CORPUSCULAR VOLUME 93.9 FL (78-98); MEAN PLATELET VOLUME 8.3 FL (7.4-10.4); MONOCYTES # (AUTO) 0.8 X10'3 (0-0.9); MONOCYTES % (AUTO) 10.6 % (2-12); NEUTROPHILS # (AUTO) 5.6 X10'3 (1.8-7.7); NEUTROPHILS % (AUTO) 73.4 % (42-75); PLATELET COUNT 300 X10'3 (140-440); RED BLOOD COUNT 2.21 X10'6 (4.70-6.10); RED CELL DISTRIBUTION WIDTH 16.1 % (11.5-14.5); WHITE BLOOD COUNT 7.6 X10'3 (4.5-11.0)
[2018-10-16 06:13] LABS: PARTIAL THROMBOPLASTIN TIME 43 SECONDS (22-32); PROTHROMBIN TIME 19.8 SECONDS (9.0-12.0)
--- NOTE | 2018-10-16 06:19 | NUR ---
Gave report to Judy LUX pt is resting on RA, in no apparent distress, call light and items of freq use within reach
[2018-10-16 06:25] LABS: ANION GAP 10 (8-16); BLOOD UREA NITROGEN 22 MG/DL (7-18); BUN/CREATININE RATIO 14.1 (5.4-32.0); CALCIUM 7.5 MG/DL (8.5-10.1); CHLORIDE 105 MMOL/L (99-107); CREATININE 1.56 MG/DL (0.60-1.10); GLUCOSE 85 MG/DL (70-104); PHOSPHORUS 3.1 MG/DL (2.3-4.5); SODIUM 138 MMOL/L (135-145); TOTAL CARBON DIOXIDE 23.2 MMOL/L (24-32); eGFR 43 ML/MIN
[2018-10-16 06:26] LABS: HEMATOCRIT 20.7 % (42.0-52.0); HEMOGLOBIN 6.9 g/dl (14.0-17.9)
--- NOTE | 2018-10-16 06:40 | NUR ---
Patient in room NILE 359. I have received report from CAMI LUX and had the opportunity to ask questions and assume patient care.
[2018-10-16 07:00] VITALS: BP 119/61
[2018-10-16] MEDS: pantoprazole 40mg Tablet.DR PO SCH (07:30)
[2018-10-16] MEDS: lactose-reduced food (Ensure High Protein) 237ml bottle PO SCH ×2 (07:30→17:07)
[2018-10-16] MEDS: apixaban 5mg tablet PO SCH ×2 (08:51→20:05)
[2018-10-16] MEDS: clopidogrel 75mg tablet PO SCH (08:51)
[2018-10-16] MEDS: folic acid 1mg tablet PO SCH (08:51)
[2018-10-16] MEDS: docusate sod 100mg capsule PO SCH ×2 (08:51→20:05)
[2018-10-16] MEDS: multivitamins, therapeutics tablet PO SCH (08:51)
[2018-10-16] MEDS: thiamine 100mg tablet PO SCH (08:51)
[2018-10-16] MEDS: lactobacillus rhamnosus 10,000 MMU CELLS/CAPSULE PO SCH ×2 (08:51→20:06)
[2018-10-16] MEDS: cefpodoxime proxetil 100mg tablet PO SCH ×2 (08:51→17:41)
[2018-10-16] MEDS: sennosides/docusate sodium tablet PO SCH ×2 (08:51→20:06)
[2018-10-16] MEDS: HYDROcodone/acetaminophen 10/325mg tab PO PRN ×3 (08:52→20:11)
[2018-10-16] MEDS: LIDOcaine 5% patch TP SCH (08:53)
[2018-10-16] MEDS: nicotine 14mg patch - 24hr TD SCH (08:53)
[2018-10-16 12:12] VITALS: BP 108/57
[2018-10-16 12:27] VITALS: BP 123/60
[2018-10-16 13:27] VITALS: BP_SYST 118; BP_SYST 121; BP_DIAS 60
--- NOTE | 2018-10-16 17:57 | NUR ---
GAVE REPORT TO ANNABELLE LUX
[2018-10-16 18:00] VITALS: BP 102/62
--- NOTE | 2018-10-16 18:00 | NUR ---
Patient in room NILE 359. I have received report from Judy LUX and had the opportunity to ask questions and assume patient care. Patient resting comfortably watching TV, son at bedside.
[2018-10-16] MEDS: tamsulosin 0.4mg capsule PO SCH (20:06)
--- NOTE | 2018-10-16 20:40 | NUR ---
LEFT FOREARM PIV DATED 10/13/18, FLUSHES EASILY NO REDNESS AT SITE. PATIENT REFUSED TO LET ME CHANGE IT TONIGHT, STATED HE WOULD RATHER HAVE IT DONE IN THE MORNING WHEN HE KNOWS FOR SURE IF HE IS GOING HOME OR NOT. WILL CONTINUE TO MONITOR.
[2018-10-17] VITALS: BP 119/53
[2018-10-17] MEDS: HYDROcodone/acetaminophen 10/325mg tab PO PRN ×4 (03:19→20:04)
[2018-10-17 05:15] LABS: BASOPHILS % (AUTO) 0 % (0-1); EOSINOPHILS # (AUTO) 0.3 X10'3 (0-0.9); EOSINOPHILS % (AUTO) 3.2 % (0-6); HEMOGLOBIN 7.5 g/dl (14.0-17.9); LYMPHOCYTES # (AUTO) 0.9 X10'3 (1.1-4.8); LYMPHOCYTES % (AUTO) 11.5 % (21-51); MEAN CORPUSCULAR HGB CONC 36.1 g/dL (33.0-36.5); MEAN CORPUSCULAR VOLUME 94.2 FL (78-98); MEAN PLATELET VOLUME 8.4 FL (7.4-10.4); MONOCYTES # (AUTO) 0.7 X10'3 (0-0.9); MONOCYTES % (AUTO) 8.6 % (2-12); NEUTROPHILS # (AUTO) 6.1 X10'3 (1.8-7.7); NEUTROPHILS % (AUTO) 76.7 % (42-75); PLATELET COUNT 276 X10'3 (140-440); RED BLOOD COUNT 2.21 X10'6 (4.70-6.10); RED CELL DISTRIBUTION WIDTH 17.5 % (11.5-14.5); WHITE BLOOD COUNT 7.9 X10'3 (4.5-11.0)
[2018-10-17 05:18] LABS: INR 1.3 INR; PARTIAL THROMBOPLASTIN TIME 41 SECONDS (22-32); PROTHROMBIN TIME 13.4 SECONDS (9.0-12.0)
[2018-10-17 05:26] LABS: ALBUMIN 1.8 G/DL (3.4-5.0); ANION GAP 8 (8-16); BLOOD UREA NITROGEN 23 MG/DL (7-18); BUN/CREATININE RATIO 16.1 (5.4-32.0); CALCIUM 7.5 MG/DL (8.5-10.1); CHLORIDE 105 MMOL/L (99-107); CREATININE 1.43 MG/DL (0.60-1.10); GLUCOSE 92 MG/DL (70-104); MAGNESIUM 1.9 MG/DL (1.5-2.4); SODIUM 137 MMOL/L (135-145); eGFR 47 ML/MIN
[2018-10-17 05:49] LABS: HEMATOCRIT 20.8 % (42.0-52.0)
--- NOTE | 2018-10-17 06:13 | NUR ---
Problems reprioritized. Patient report given, questions answered & plan of care reviewed with Judy LUX.
--- NOTE | 2018-10-17 06:43 | NUR ---
RECEIVED REPORT FROM ANNABELLE LUX
[2018-10-17] MEDS: clopidogrel 75mg tablet PO SCH (07:51)
[2018-10-17] MEDS: folic acid 1mg tablet PO SCH (07:51)
[2018-10-17] MEDS: apixaban 5mg tablet PO SCH ×2 (07:51→20:08)
[2018-10-17] MEDS: lactobacillus rhamnosus 10,000 MMU CELLS/CAPSULE PO SCH ×2 (07:51→20:08)
[2018-10-17] MEDS: pantoprazole 40mg Tablet.DR PO SCH (07:51)
[2018-10-17] MEDS: cefpodoxime proxetil 100mg tablet PO SCH ×2 (07:51→17:43)
[2018-10-17] MEDS: sennosides/docusate sodium tablet PO SCH ×2 (07:51→20:09)
[2018-10-17] MEDS: docusate sod 100mg capsule PO SCH ×2 (07:51→20:08)
[2018-10-17] MEDS: multivitamins, therapeutics tablet PO SCH (07:51)
[2018-10-17] MEDS: LIDOcaine 5% patch TP SCH (07:52)
[2018-10-17] MEDS: nicotine 14mg patch - 24hr TD SCH (07:52)
[2018-10-17] MEDS: lactose-reduced food (Ensure High Protein) 237ml bottle PO SCH ×3 (07:59→11:17)
[2018-10-17] MEDS: thiamine 100mg tablet PO SCH (08:02)
[2018-10-17 11:00] VITALS: BP 106/53
--- NOTE | 2018-10-17 18:11 | NUR ---
Problems reprioritized. Patient report given, questions answered & plan of care reviewed with JOSH LUX.
--- NOTE | 2018-10-17 18:30 | NUR ---
Patient in room NILE 359. I have received report from GÓMEZ and had the opportunity to ask questions and assume patient care.
[2018-10-17 19:00] VITALS: BP 109/56
[2018-10-17] MEDS: tamsulosin 0.4mg capsule PO SCH (20:08)
--- NOTE | 2018-10-17 21:00 | NUR ---
PT REFUSED AMBULATION THIS NOC SHIFT Addendum: 10/18/18 at 0516 by Chioma Raymond RN Amended: Links added.
[2018-10-17 23:00] VITALS: BP 122/68
[2018-10-18] MEDS: HYDROcodone/acetaminophen 10/325mg tab PO PRN ×3 (03:30→16:17)
[2018-10-18 06:02] LABS: BASOPHILS % (AUTO) 0.2 % (0-1); EOSINOPHILS # (AUTO) 0.4 X10'3 (0-0.9); EOSINOPHILS % (AUTO) 5.7 % (0-6); HEMOGLOBIN 7.7 g/dl (14.0-17.9); LYMPHOCYTES # (AUTO) 1.5 X10'3 (1.1-4.8); LYMPHOCYTES % (AUTO) 19.1 % (21-51); MEAN CORPUSCULAR HEMOGLOBIN 33.3 PG (27.0-31.0); MEAN CORPUSCULAR HGB CONC 35.7 g/dL (33.0-36.5); MEAN CORPUSCULAR VOLUME 93.3 FL (78-98); MEAN PLATELET VOLUME 8.3 FL (7.4-10.4); MONOCYTES # (AUTO) 0.7 X10'3 (0-0.9); MONOCYTES % (AUTO) 8.9 % (2-12); NEUTROPHILS # (AUTO) 5.1 X10'3 (1.8-7.7); NEUTROPHILS % (AUTO) 66.1 % (42-75); PLATELET COUNT 321 X10'3 (140-440); RED BLOOD COUNT 2.32 X10'6 (4.70-6.10); RED CELL DISTRIBUTION WIDTH 17.5 % (11.5-14.5); WHITE BLOOD COUNT 7.7 X10'3 (4.5-11.0)
[2018-10-18 06:18] LABS: ALBUMIN 1.8 G/DL (3.4-5.0); ANION GAP 10 (8-16); BLOOD UREA NITROGEN 25 MG/DL (7-18); BUN/CREATININE RATIO 15.2 (5.4-32.0); CALCIUM 7.8 MG/DL (8.5-10.1); CHLORIDE 105 MMOL/L (99-107); CREATININE 1.64 MG/DL (0.60-1.10); GLUCOSE 90 MG/DL (70-104); MAGNESIUM 1.8 MG/DL (1.5-2.4); PHOSPHORUS 3.1 MG/DL (2.3-4.5); POTASSIUM 4.2 MMOL/L (3.5-5.1); SODIUM 138 MMOL/L (135-145); TOTAL CARBON DIOXIDE 22.7 MMOL/L (24-32); eGFR 40 ML/MIN
[2018-10-18 06:22] LABS: HEMATOCRIT 21.7 % (42.0-52.0)
--- NOTE | 2018-10-18 06:28 | NUR ---
Problems reprioritized. Patient report given, questions answered & plan of care reviewed with
[2018-10-18 06:35] LABS: INR 1.1 INR; PARTIAL THROMBOPLASTIN TIME 40 SECONDS (22-32); PROTHROMBIN TIME 11.5 SECONDS (9.0-12.0)
[2018-10-18 08:00] VITALS: BP 118/58
--- NOTE | 2018-10-18 08:00 | NUR ---
unable to assess urine at this moment- no void bladder scan shows 118 ml urine in bladder Addendum: 10/18/18 at 1237 by Patricia Traore RN, RN Amended: Links added.
[2018-10-18] MEDS: cefpodoxime proxetil 100mg tablet PO SCH (08:09)
[2018-10-18] MEDS: thiamine 100mg tablet PO SCH (08:09)
[2018-10-18] MEDS: sennosides/docusate sodium tablet PO SCH (08:10)
[2018-10-18] MEDS: clopidogrel 75mg tablet PO SCH (08:10)
[2018-10-18] MEDS: lactobacillus rhamnosus 10,000 MMU CELLS/CAPSULE PO SCH (08:10)
[2018-10-18] MEDS: docusate sod 100mg capsule PO SCH (08:10)
[2018-10-18] MEDS: multivitamins, therapeutics tablet PO SCH (08:10)
[2018-10-18] MEDS: apixaban 5mg tablet PO SCH (08:10)
[2018-10-18] MEDS: folic acid 1mg tablet PO SCH (08:10)
[2018-10-18] MEDS: LIDOcaine 5% patch TP SCH (08:11)
[2018-10-18] MEDS: nicotine 14mg patch - 24hr TD SCH (08:12)
[2018-10-18] MEDS: pantoprazole 40mg Tablet.DR PO SCH (08:33)
[2018-10-18 11:00] VITALS: BP 108/71
[2018-10-18] MEDS ORDERED: CEPH-572 PO (12:07)
[2018-10-18] MEDS ORDERED: APIX5TAB3 PO (12:07)
[2018-10-18] MEDS ORDERED: HYDR-4383 PO (12:08)
[2018-10-18] MEDS ORDERED: CLIN150C2 PO (15:16)
--- NOTE | 2018-10-18 15:19 | NUR ---
No wound pictures taken r/t sx wounds Addendum: 10/18/18 at 1520 by Ely Lu RN Amended: Links added.
--- NOTE | 2018-10-18 15:19 | NUR ---
B[place] jones Addendum: 10/18/18 at 1520 by Ely Lu RN Amended: Links added.
[2018-10-18] MEDS ORDERED: CLOP75TA35 PO (16:06)
--- NOTE | 2018-10-18 17:42 | NUR ---
PT. DISCHARGED IN A STABLE CONDITION AT 1725. LEFT IN W/C TO PRIVATE VEHICLE ACCOMPANIED BY HOSPITAL STAFF MEMBER AND HIS SON. ELIQUIS, PLAVIX, NORCO, AND ATB. CLEOCIN SENT WITH SON, GIVEN PER WALKER BEDSIDE. DISCUSS MEDICATIONS AND FOLLOW UP CARE. DISCUSSED THE IMPORTANCE OF TAKE HIS ANTIBIOTIC, PLAVIX, AND ELIQUIS. WOUND CARE TEACHING PROVIDED TO PATIENT AND SON. EXTRA BANDAGES SENT HOME. GOOD FEEDBACK AND VERBAL UNDERSTANDING FROM SON, PT BOIS FORTE AND SOMEWHAT [id number] IN HIS CARE. 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 TELE DISCONTINUED, REMOVED CLEANED, AND RETURNED. NO IV TO DISCONTINUE. PT STATES HE WILL CALL TO SCHEDULE AN LEWIS WITH BRUSHIRA WITHIN THE WEEK AND WILL COME BACK TO ER IF ANY COMPLICATIONS. AWAITING A CALL FROM CASE MANAGEMENT TO DISCUSS HOME HEALTH NURSING AND HOME PT.
--- NOTE | 2018-10-18 17:48 | NUR ---
NORCO GIVEN TO THE PATIENT FOR PAIN PER ORDER BEFORE HE LEFT BASED ON THE KNOWLEDGE THAT HIS SON WAS DRIVING HIM HOME.
[2018-10-22] MEDS ORDERED: HYDR-3965 PO (00:57)
[2018-10-22] MEDS ORDERED: CLOP75TA33 PO (00:57)
[2018-10-22] MEDS ORDERED: APIX5TAB3 PO (00:57)
[2018-10-22] MEDS ORDERED: CLIN150C8 PO (00:57)
== END 2018-10-18 17:25 | disposition home health service (06) | DRG 252 ==
LOC: ER 09:51 → ED HOLD 14:14 → ICU 2S 15:31 → CICU 2S 10-10 18:15 → SUR 3N 10-12 04:30
PROVIDERS: ADMIT Internal Medicine Critical Care Medicine; ATTEND Family Medicine
PROC: B41F1ZZ Fluoroscopy of Right Lower Extremity Arteries using Low Osmolar Contrast (ICD-10-PCS; 2018-10-05)
PROC: B41C1ZZ Fluoroscopy of Pelvic Arteries using Low Osmolar Contrast (ICD-10-PCS; 2018-10-05)
PROC: 3E05317 Introduction of Other Thrombolytic into Peripheral Artery, Percutaneous Approach (ICD-10-PCS; 2018-10-05)
PROC: 04CP0ZZ Extirpation of Matter from Right Anterior Tibial Artery, Open Approach (ICD-10-PCS; 2018-10-06)
PROC: 04CY0ZZ Extirpation of Matter from Lower Artery, Open Approach (ICD-10-PCS; 2018-10-06)
PROC: B41F1ZZ Fluoroscopy of Right Lower Extremity Arteries using Low Osmolar Contrast (ICD-10-PCS; 2018-10-06)
PROC: 02HV33Z Insertion of Infusion Device into Superior Vena Cava, Percutaneous Approach (ICD-10-PCS; 2018-10-06)
PROC: B548ZZA Ultrasonography of Superior Vena Cava, Guidance (ICD-10-PCS; 2018-10-06)
PROC: 04CT0ZZ Extirpation of Matter from Right Peroneal Artery, Open Approach (ICD-10-PCS; 2018-10-07)
PROC: 06BP0ZZ Excision of Right Saphenous Vein, Open Approach (ICD-10-PCS; 2018-10-07)
PROC: 041K09N Bypass Right Femoral Artery to Posterior Tibial Artery with Autologous Venous Tissue, Open Approach (ICD-10-PCS; 2018-10-07)
PROC: 041K0JN Bypass Right Femoral Artery to Posterior Tibial Artery with Synthetic Substitute, Open Approach (ICD-10-PCS; 2018-10-07)
PROC: 30233N1 Transfusion of Nonautologous Red Blood Cells into Peripheral Vein, Percutaneous Approach (ICD-10-PCS; 2018-10-07)
PROC: B41F1ZZ Fluoroscopy of Right Lower Extremity Arteries using Low Osmolar Contrast (ICD-10-PCS; 2018-10-07)
PROC: 5A1945Z Respiratory Ventilation, 24-96 Consecutive Hours (ICD-10-PCS; 2018-10-07)
PROC: 04CR0ZZ Extirpation of Matter from Right Posterior Tibial Artery, Open Approach (ICD-10-PCS; principal; 2018-10-07 15:11)
PROC: 30233N1 Transfusion of Nonautologous Red Blood Cells into Peripheral Vein, Percutaneous Approach (ICD-10-PCS; 2018-10-12)
PROC: 30233N1 Transfusion of Nonautologous Red Blood Cells into Peripheral Vein, Percutaneous Approach (ICD-10-PCS; 2018-10-16)
DX: T82.868A Thrombosis due to vascular prosthetic devices, implants and grafts, initial encounter (principal); J96.00 Acute respiratory failure, unspecified whether with hypoxia or hypercapnia; N17.9 Acute kidney failure, unspecified; D62 Acute posthemorrhagic anemia; E87.2 Acidosis; F10.239 Alcohol dependence with withdrawal, unspecified; I73.9 Peripheral vascular disease, unspecified; I99.8 Other disorder of circulatory system; H91.90 Unspecified hearing loss, unspecified ear; E87.8 Other disorders of electrolyte and fluid balance, not elsewhere classified; I12.9 Hypertensive chronic kidney disease with stage 1 through stage 4 chronic kidney disease, or unspecified chronic kidney disease; N18.9 Chronic kidney disease, unspecified; R33.9 Retention of urine, unspecified; M54.9 Dorsalgia, unspecified; F17.200 Nicotine dependence, unspecified, uncomplicated; Y83.2 Surgical operation with anastomosis, bypass or graft as the cause of abnormal reaction of the patient, or of later complication, without mention of misadventure at the time of the procedure; Z79.899 Other long term (current) drug therapy; Z79.01 Long term (current) use of anticoagulants; Z86.718 Personal history of other venous thrombosis and embolism; Y92.89 Other specified places as the place of occurrence of the external cause
CPT/HCPCS: 36245; 36246; 37211; 37214; 93306; 99291; G0269; 36415; 36600; 71045; 73590; 75710; 75736; 76000; 76775; 76937; 80047; 80048; 80053; 82570; 82803; 82948; 83735; 83880; 84100; 84132; 84156; 84300; 85018; 85025; 85027; 85384; 85610; 85730; 86885; 86900; 86901; 86920; 86922; 87070; 87207; 88304; 92616; 93922; 93925; 93926; 93930; 93970; 94002; 94003; 94640; 94760; 97110; 97116; 97162; 99152; 99153; A4620; A6219; A6257; A6258; A6449; A6454; A7000; A9270; C1751; C1757; C1760; C1768; C1769; C1894; C9113; G0378; J0690; J1170; J1200; J1630; J1644; J1940; J1956; J2001; J2060; J2175; J2250; J2270; J2704; J2997; J3010; J3411; J3475; J3480; J3490; J7030; J7060; J7120; P9016; Q9967

== ENCOUNTER 2018-10-21 18:36 | Inpatient (IN) | payer MEDICARE, OTHER | END 2018-10-28 10:52 | disposition home or self-care (01) | LOC: SUR 3N 10-25 16:46 → ER 18:36 → ED HOLD 10-22 00:43 → SUR 3N 10-22 16:56 | DX: T81.40XA Infection following a procedure, unspecified, initial encounter (principal); L03.115 Cellulitis of right lower limb; N17.9 Acute kidney failure, unspecified; I73.9 Peripheral vascular disease, unspecified; H91.90 Unspecified hearing loss, unspecified ear; D64.9 Anemia, unspecified; I10 Essential (primary) hypertension; N18.9 Chronic kidney disease, unspecified; I12.9 Hypertensive chronic kidney disease with stage 1 through stage 4 chronic kidney disease, or unspecified chronic kidney disease ==

== ENCOUNTER 2018-11-13 08:54 | Inpatient (IN) | payer MEDICARE, OTHER | END 2018-11-16 15:05 | disposition home or self-care (01) | LOC: ER 08:54 → SUR 3N 11-15 17:30 → ED HOLD 11:19 → SUR 3N 13:08 → CICU 2S 17:20 | DX: T82.868A Thrombosis due to vascular prosthetic devices, implants and grafts, initial encounter (principal); N17.9 Acute kidney failure, unspecified; I73.9 Peripheral vascular disease, unspecified ==

== ENCOUNTER 2019-02-03 10:08 | Emergency (ER) | payer MEDICARE, OTHER ==
[~2019-02-03] VITALS: Ht 172.7 cm; Wt 67.0 kg
[~2019-02-03 10:08] MED LIST changes: -AMLO-93 PO; +AMLO5TAB16 PO; +APIX5TAB3 PO; +CLOP75TA33 PO; +HYDR-3965 PO; +LACT1CAP26 PO; +LISI40TA4 PO
[2019-02-03 12:42] LABS: BASOPHILS % (AUTO) 0.3 % (0-1); EOSINOPHILS # (AUTO) 0.2 X10'3 (0-0.9); HEMATOCRIT 29.2 % (42.0-52.0); HEMOGLOBIN 9.8 g/dl (14.0-17.9); LYMPHOCYTES # (AUTO) 1.3 X10'3 (1.1-4.8); LYMPHOCYTES % (AUTO) 15.5 % (21-51); MEAN CORPUSCULAR HEMOGLOBIN 31.7 PG (27.0-31.0); MEAN CORPUSCULAR HGB CONC 33.5 g/dL (33.0-36.5); MEAN CORPUSCULAR VOLUME 94.6 FL (78-98); MEAN PLATELET VOLUME 6.9 FL (7.4-10.4); MONOCYTES # (AUTO) 0.8 X10'3 (0-0.9); MONOCYTES % (AUTO) 9.5 % (2-12); NEUTROPHILS # (AUTO) 6.3 X10'3 (1.8-7.7); NEUTROPHILS % (AUTO) 72.7 % (42-75); PLATELET COUNT 352 X10'3 (140-440); RED BLOOD COUNT 3.08 X10'6 (4.70-6.10); WHITE BLOOD COUNT 8.7 X10'3 (4.5-11.0)
[2019-02-03 12:54] LABS: PARTIAL THROMBOPLASTIN TIME 28 SECONDS (22-32)
[2019-02-03 12:56] LABS: ALANINE AMINOTRANSFERASE 32 U/L (12-78); ALBUMIN 3.6 G/DL (3.4-5.0); ALBUMIN/GLOBULIN RATIO 0.8 (1.1-1.5); ALKALINE PHOSPHATASE 84 IU/L (46-116); ANION GAP 10 (8-16); ASPARTATE AMINO TRANSFERASE 19 U/L (10-37); BILIRUBIN,TOTAL 0.2 MG/DL (0.1-1.0); BLOOD UREA NITROGEN 32 MG/DL (7-18); BUN/CREATININE RATIO 25.2 (5.4-32.0); CALCIUM 9.1 MG/DL (8.5-10.1); CHLORIDE 107 MMOL/L (99-107); CREATININE 1.27 MG/DL (0.60-1.10); GLUCOSE 82 MG/DL (70-104); POTASSIUM 5.2 MMOL/L (3.5-5.1); SODIUM 138 MMOL/L (135-145); TOTAL CARBON DIOXIDE 21.1 MMOL/L (24-32); eGFR 54 ML/MIN
[2019-02-03 13:16] VITALS: BP 142/84
== END 2019-02-03 13:23 | disposition home or self-care (01) ==
LOC: ER 10:09
DX: R20.0 Anesthesia of skin (principal); R25.2 Cramp and spasm; R20.2 Paresthesia of skin; I10 Essential (primary) hypertension; R79.1 Abnormal coagulation profile; Z86.718 Personal history of other venous thrombosis and embolism; Z79.899 Other long term (current) drug therapy
CPT/HCPCS: 36415; 80053; 85025; 85610; 85730; 93005; 93926; 99284

== ENCOUNTER 2019-02-20 11:34 | Inpatient (IN) | payer MEDICARE, OTHER ==
[~2019-02-20] VITALS: Ht 172.7 cm; Wt 72.7 kg
--- NOTE | 2019-02-20 11:58 | NUR ---
Pt had milk approx 0900 with his morning pills.
[2019-02-20 12:35] LABS: BASOPHILS % (AUTO) 0.3 % (0-1); EOSINOPHILS # (AUTO) 0.2 X10'3 (0-0.9); EOSINOPHILS % (AUTO) 2.6 % (0-6); HEMATOCRIT 27.4 % (42.0-52.0); HEMOGLOBIN 9.2 g/dl (14.0-17.9); LYMPHOCYTES # (AUTO) 1.7 X10'3 (1.1-4.8); LYMPHOCYTES % (AUTO) 19.6 % (21-51); MEAN CORPUSCULAR HEMOGLOBIN 32.3 PG (27.0-31.0); MEAN CORPUSCULAR HGB CONC 33.6 g/dL (33.0-36.5); MEAN CORPUSCULAR VOLUME 96.1 FL (78-98); MEAN PLATELET VOLUME 6.9 FL (7.4-10.4); MONOCYTES # (AUTO) 0.9 X10'3 (0-0.9); MONOCYTES % (AUTO) 10.4 % (2-12); NEUTROPHILS # (AUTO) 5.9 X10'3 (1.8-7.7); NEUTROPHILS % (AUTO) 67.1 % (42-75); PLATELET COUNT 417 X10'3 (140-440); RED BLOOD COUNT 2.85 X10'6 (4.70-6.10); RED CELL DISTRIBUTION WIDTH 16.2 % (11.5-14.5); WHITE BLOOD COUNT 8.8 X10'3 (4.5-11.0)
[2019-02-20 13:05] LABS: ALANINE AMINOTRANSFERASE 24 U/L (12-78); ALBUMIN 3.8 G/DL (3.4-5.0); ALBUMIN/GLOBULIN RATIO 0.8 (1.1-1.5); ALKALINE PHOSPHATASE 80 IU/L (46-116); ANION GAP 9 (8-16); ASPARTATE AMINO TRANSFERASE 14 U/L (10-37); BILIRUBIN,TOTAL 0.2 MG/DL (0.1-1.0); BLOOD UREA NITROGEN 45 MG/DL (7-18); BUN/CREATININE RATIO 32.6 (5.4-32.0); CALCIUM 9.1 MG/DL (8.5-10.1); CHLORIDE 108 MMOL/L (99-107); CREATININE 1.38 MG/DL (0.60-1.10); GLUCOSE 93 MG/DL (70-104); POTASSIUM 5.7 MMOL/L (3.5-5.1); SODIUM 135 MMOL/L (135-145); TOTAL CARBON DIOXIDE 18.5 MMOL/L (24-32); TOTAL PROTEIN 8.5 G/DL (6.4-8.2); eGFR 49 ML/MIN
[2019-02-20 13:08] LABS: PARTIAL THROMBOPLASTIN TIME 28 SECONDS (22-32)
[2019-02-20] MEDS ORDERED: iohexol 350 MG/ML 50ML vial IV ONE (13:18)
[2019-02-20] MEDS ORDERED: iohexol 350MG/ML 100ml bottle IV ONE (13:18)
[2019-02-20] MEDS ORDERED: IRON PO (14:58)
[2019-02-20] MEDS ORDERED: LISI-600 PO (14:58)
[2019-02-20] MEDS ORDERED: GABA-532 PO (14:58)
[2019-02-20] MEDS ORDERED: MULT-1141 PO (14:58)
[2019-02-20] MEDS ORDERED: ACET-2119 PO (14:58)
[2019-02-20] MEDS ORDERED: normal saline 1000ML IV soln IVB ONE (15:10)
[2019-02-20] MEDS ORDERED: heparin 10,000 units/1 ML INJ IV ONE (16:30)
[2019-02-20] MEDS ORDERED: heparin 10,000 units/1 ML INJ IV PRN (16:30)
[2019-02-20] MEDS ORDERED: ondansetron/PF 4mg/2ml inj IV PRN (17:00)
[2019-02-20] MEDS ORDERED: potassium Cl 40MEQ/NS 500ml 500 ML IV PRN (17:00)
[2019-02-20] MEDS ORDERED: mag hydrox/Alum hydrox/simeth 30ml oral suspension PO PRN (17:00)
[2019-02-20] MEDS ORDERED: magnesium 2GM in 50ml NS 50 ML IV PRN (17:00)
[2019-02-20] MEDS ORDERED: acetaminophen 325mg tablet PO PRN (17:00)
[2019-02-20] MEDS ORDERED: magnesium hydroxide 30ml (MOM) UD suspension PO PRN (17:00)
[2019-02-20] MEDS ORDERED: potassium Cl 20 mEq SR tablet PO PRN ×2 (17:00)
[2019-02-20] MEDS ORDERED: potassium CL 10mEq/100ml bag 100 ML IV PRN (17:00)
[2019-02-20] MEDS ORDERED: magnesium Cl slow-release 64mg tablet PO PRN (17:00)
[2019-02-20] MEDS ORDERED: magnesium 4gm in 100ml NS 100 ML IV PRN (17:00)
[2019-02-20] MEDS: normal saline 1000ml 1,000 ML IV SCH (17:48)
[2019-02-20] MEDS: heparin 25,000 UNIT/250ml bag 250 ML IV SCH (17:53)
[2019-02-20] MEDS: gabapentin 300mg capsule PO SCH (20:44)
--- NOTE | 2019-02-20 20:44 | NUR ---
Received report from MACHINE SCALLOP CUTTERMACI Brooke. Patient to follow shortly.
--- NOTE | 2019-02-20 20:55 | NUR ---
Patient arrived to floor via gurney from ER. A&Ox4 and transferred from gurney via walking to bed . VS obtained.
[2019-02-20 21:00] VITALS: BP 140/68
[2019-02-20] MEDS: HYDROcodone/acetaminophen 5mg/325mg tablet PO PRN (23:17)
[2019-02-21] VITALS (10 sets, daily range): BP systolic 100–133; BP diastolic 55–73
[2019-02-21] MEDS: normal saline 1000ml 1,000 ML IV SCH ×2 (00:34→19:41)
[2019-02-21] MEDS: heparin 25,000 UNIT/250ml bag 250 ML IV SCH ×2 (00:39→13:41)
[2019-02-21 06:12] LABS: BASOPHILS % (AUTO) 0.2 % (0-1); EOSINOPHILS # (AUTO) 0.3 X10'3 (0-0.9); EOSINOPHILS % (AUTO) 2.7 % (0-6); HEMATOCRIT 24.1 % (42.0-52.0); HEMOGLOBIN 8.1 g/dl (14.0-17.9); LYMPHOCYTES # (AUTO) 1.4 X10'3 (1.1-4.8); LYMPHOCYTES % (AUTO) 14.9 % (21-51); MEAN CORPUSCULAR HEMOGLOBIN 32.5 PG (27.0-31.0); MEAN CORPUSCULAR HGB CONC 33.8 g/dL (33.0-36.5); MEAN CORPUSCULAR VOLUME 96.2 FL (78-98); MEAN PLATELET VOLUME 7.1 FL (7.4-10.4); MONOCYTES # (AUTO) 0.8 X10'3 (0-0.9); MONOCYTES % (AUTO) 7.9 % (2-12); NEUTROPHILS # (AUTO) 7.2 X10'3 (1.8-7.7); NEUTROPHILS % (AUTO) 74.3 % (42-75); PLATELET COUNT 336 X10'3 (140-440); RED CELL DISTRIBUTION WIDTH 16.6 % (11.5-14.5); WHITE BLOOD COUNT 9.7 X10'3 (4.5-11.0)
[2019-02-21 06:26] LABS: ALANINE AMINOTRANSFERASE 19 U/L (12-78); ALBUMIN/GLOBULIN RATIO 0.8 (1.1-1.5); ALKALINE PHOSPHATASE 66 IU/L (46-116); ANION GAP 10 (8-16); ASPARTATE AMINO TRANSFERASE 13 U/L (10-37); BILIRUBIN,TOTAL 0.1 MG/DL (0.1-1.0); BLOOD UREA NITROGEN 41 MG/DL (7-18); BUN/CREATININE RATIO 31.3 (5.4-32.0); CALCIUM 8.2 MG/DL (8.5-10.1); CHLORIDE 112 MMOL/L (99-107); CREATININE 1.31 MG/DL (0.60-1.10); GLUCOSE 84 MG/DL (70-104); MAGNESIUM 1.9 MG/DL (1.5-2.4); POTASSIUM 5.2 MMOL/L (3.5-5.1); SODIUM 139 MMOL/L (135-145); TOTAL CARBON DIOXIDE 16.7 MMOL/L (24-32); TOTAL PROTEIN 6.9 G/DL (6.4-8.2); eGFR 52 ML/MIN
--- NOTE | 2019-02-21 07:15 | NUR ---
Problems reprioritized. Patient report given, questions answered & plan of care reviewed with Ely LUX.
[2019-02-21] MEDS: ferrous sulfate 325mg tablet PO SCH ×2 (08:00→08:56)
[2019-02-21] MEDS ORDERED: lisinopril 20mg tablet PO SCH (08:00)
[2019-02-21] MEDS: K and/or MAG REPLACEMENT MC SCH (08:00)
--- NOTE | 2019-02-21 08:05 | NUR ---
NO CO-SIGNATURE CHARTED FOR NOC RATE CHANGE. THIS NURSE MADE NO CHANGE IN RATE BUT HAD TO DOCUMENT IT A RATE CHANGE SINCE IT WAS NOT DONE BEFORE. PT. ON 12ML/HR DRIP RATE AT START OF SHIFT.
--- NOTE | 2019-02-21 08:53 | NUR ---
R DORSALIS PEDIS PULSE WEAK, CAP REFILL 3-4 SECOND, CMS INTACT. Addendum: 02/21/19 at 0855 by Ely Lu RN Amended: Links added.
[2019-02-21] MEDS: amLODIPine 5mg tablet PO SCH (08:56)
[2019-02-21] MEDS: multivitamins, therapeutics tablet PO SCH (08:56)
[2019-02-21] MEDS: clopidogrel 75mg tablet PO SCH (08:56)
[2019-02-21] MEDS: gabapentin 300mg capsule PO SCH ×2 (08:56→19:34)
--- NOTE | 2019-02-21 09:03 | NUR ---
bp RETAKEN WITH A SIZE APPROPRIATE CUFF. 137/72. OK TO GIVE BP MEDS
[2019-02-21] MEDS ORDERED: sodium polystyrene sulfonate 15gm/60ml oral suspension PO ONE (10:05)
--- NOTE | 2019-02-21 10:33 | NUR ---
residual bladder scan done. 370ml in bladder. N/O to insert FC for retention and administer Flomax 0.4mg PO daily.
[2019-02-21] MEDS ORDERED: LIDOcaine 1%/PF 5ML 10 MG/ML VIAL ONE (15:39)
[2019-02-21] MEDS ORDERED: iohexol 300mg/ml 100ml inj. ONE (15:39)
[2019-02-21] MEDS ORDERED: fentaNYL/PF 50MCG/1 ML 2ML syringe ONE ×2 (15:49→16:17)
[2019-02-21] MEDS ORDERED: midazolam 2 mg/2 ml injection ONE ×2 (15:49→16:17)
[2019-02-21] MEDS ORDERED: heparin 1,000 UNITS/NS 500ml 500 ML ONE ×2 (15:49→16:40)
[2019-02-21] MEDS ORDERED: normal saline 1000ml 1,000 ML IV SCH (16:04)
[2019-02-21] MEDS ORDERED: midazolam 2 mg/2 ml injection IV PRN (16:05)
[2019-02-21] MEDS ORDERED: fentaNYL/PF 50MCG/1 ML 2ML syringe IV PRN (16:05)
[2019-02-21] MEDS ORDERED: LIDOcaine 1%/PF 5ML 10 MG/ML VIAL SQ ONE (16:05)
[2019-02-21] MEDS ORDERED: heparin 1,000 UNITS/NS 500ml 500 ML ICATH ONE (16:05)
[2019-02-21] MEDS: tPA-cathflo 2mg/2ml IV flush 4 MG in normal saline 100ml IV soln 100 ML ICATH SCH ×2 (16:38→23:47)
[2019-02-21] MEDS: heparin 1,000 UNITS/NS 500ml 500 ML IV SCH (16:38)
--- NOTE | 2019-02-21 16:49 | NUR ---
Spoke with Abby in ICU. Pt. will be transferred from angio to ICU room 2044. Family member/son is aware of room change.
--- NOTE | 2019-02-21 17:54 | NUR ---
Pt arrived from Angio. Left groin accessed. Site CDI. Heparin and TPA infusing to left groin. Pt educated on bedrest and bleeding precautions and verbalizes understanding. VSS. Denies pain at this time.
[2019-02-21] MEDS: HYDROcodone/acetaminophen 5mg/325mg tablet PO PRN (19:35)
[2019-02-21] MEDS ORDERED: naloxone 0.4 mg/ml inj IV PRN (21:05)
[2019-02-21] MEDS ORDERED: CADD PCA waste documentation MC SCH (21:05)
[2019-02-21] MEDS: HYDROmorphone/NS 1 mg/ml CADD 50 ML IV SCH ×2 (21:27→23:00)
[2019-02-21] MEDS: tamsulosin 0.4mg capsule PO SCH (21:38)
[2019-02-22] VITALS (32 sets, daily range): BP systolic 98–145; BP diastolic 45–97
[2019-02-22] LABS: HEMATOCRIT 24.4 % (42.0-52.0); HEMOGLOBIN 8.2 g/dl (14.0-17.9); MEAN CORPUSCULAR HEMOGLOBIN 32.4 PG (27.0-31.0); MEAN CORPUSCULAR HGB CONC 33.5 g/dL (33.0-36.5); MEAN CORPUSCULAR VOLUME 96.7 FL (78-98); MEAN PLATELET VOLUME 6.8 FL (7.4-10.4); PLATELET COUNT 285 X10'3 (140-440); RED BLOOD COUNT 2.53 X10'6 (4.70-6.10); RED CELL DISTRIBUTION WIDTH 16.4 % (11.5-14.5); WHITE BLOOD COUNT 8.5 X10'3 (4.5-11.0)
[2019-02-22] MEDS: HYDROmorphone/NS 1 mg/ml CADD 50 ML IV SCH ×12 (01:00→23:00)
--- NOTE | 2019-02-22 03:00 | NUR ---
DOPPLER TO RLE NOW WITH DP HAVING INTERMITTENT BLOOD FLOW AND WEAK CONTINUOUS DOPPLER TO PT. FOOT IS WARM BUT STILL DISCOLORED - TOES SLIGHTLY PURPLE HUE. PATIENT STATES FOOT HAS MORE FEELING AND THAT THE LEG CRAMPING HE FELT EARLIER HAS MUCH IMPROVED. WHILE BEFORE THE [employer] MANAGER (@ NEAR 20:00) - IT WAS EXCRUCIATING FOR PATIENT TO TURN ETC, PATIENT IS ABLE TO HELP TURN AND THE PAIN IS BEING RATED "ABOUT A THREE" AND TOLERABLE IN THE RIGHT CALF. LEFT GROIN IS OOZING MUCH MORE THAN EARLIER - DRESSING BELOW TEGADERM IS SATURATED BUT CONTAINED. NO NEED FOR RE-INFORCEMENT. VSS, PATIENT HAS BEEN NPO SINCE MIDNIGHT. FULL BED AND BATH PATIENT IS INCONTINENT OF LOOSE YELLOW STOOL. WILL CONTINUE TO MONITOR
[2019-02-22] MEDS: heparin 1,000 UNITS/NS 500ml 500 ML IV SCH (05:10)
[2019-02-22 05:13] LABS: BASOPHILS % (AUTO) 0.2 % (0-1); EOSINOPHILS # (AUTO) 0.2 X10'3 (0-0.9); EOSINOPHILS % (AUTO) 2.9 % (0-6); HEMATOCRIT 22.8 % (42.0-52.0); HEMOGLOBIN 7.6 g/dl (14.0-17.9); LYMPHOCYTES # (AUTO) 0.9 X10'3 (1.1-4.8); MEAN CORPUSCULAR HEMOGLOBIN 32.4 PG (27.0-31.0); MEAN CORPUSCULAR HGB CONC 33.3 g/dL (33.0-36.5); MEAN CORPUSCULAR VOLUME 97.2 FL (78-98); MEAN PLATELET VOLUME 6.6 FL (7.4-10.4); MONOCYTES # (AUTO) 0.8 X10'3 (0-0.9); MONOCYTES % (AUTO) 10.2 % (2-12); NEUTROPHILS # (AUTO) 6.2 X10'3 (1.8-7.7); NEUTROPHILS % (AUTO) 75.7 % (42-75); PLATELET COUNT 240 X10'3 (140-440); RED BLOOD COUNT 2.34 X10'6 (4.70-6.10); RED CELL DISTRIBUTION WIDTH 16.9 % (11.5-14.5); WHITE BLOOD COUNT 8.1 X10'3 (4.5-11.0)
[2019-02-22 05:45] LABS: ALANINE AMINOTRANSFERASE 30 U/L (12-78); ALBUMIN 2.9 G/DL (3.4-5.0); ALBUMIN/GLOBULIN RATIO 0.8 (1.1-1.5); ALKALINE PHOSPHATASE 66 IU/L (46-116); ANION GAP 11 (8-16); ASPARTATE AMINO TRANSFERASE 27 U/L (10-37); BILIRUBIN,TOTAL 0.3 MG/DL (0.1-1.0); BLOOD UREA NITROGEN 35 MG/DL (7-18); BUN/CREATININE RATIO 25.9 (5.4-32.0); CHLORIDE 112 MMOL/L (99-107); CREATININE 1.35 MG/DL (0.60-1.10); GLUCOSE 94 MG/DL (70-104); MAGNESIUM 1.7 MG/DL (1.5-2.4); POTASSIUM 4.6 MMOL/L (3.5-5.1); SODIUM 140 MMOL/L (135-145); TOTAL CARBON DIOXIDE 16.6 MMOL/L (24-32); TOTAL PROTEIN 6.6 G/DL (6.4-8.2); eGFR 50 ML/MIN
--- NOTE | 2019-02-22 07:07 | NUR ---
Patient in room CICU 2008. I have received report from Linwood LUX and had the opportunity to ask questions and assume patient care.
--- NOTE | 2019-02-22 07:51 | NUR ---
IR Nurse to patient bedside at ICU Nurse request to check on Sheath site, Dressing saturated Nurse stated patient became disorientated in the middle of the night and started moving and bending leg all over. Instructed ICU Nurse to Change Dressing and monitor for further signs of Bleeding and contact IR if bleeding increases. TPA and Heparin Verified by IR Nurse that they were infusing at ordered Rate
[2019-02-22] MEDS: multivitamins, therapeutics tablet PO SCH (08:00)
[2019-02-22] MEDS: ferrous sulfate 325mg tablet PO SCH (08:00)
[2019-02-22] MEDS: K and/or MAG REPLACEMENT MC SCH (08:00)
[2019-02-22] MEDS: gabapentin 300mg capsule PO SCH ×2 (08:24→20:18)
[2019-02-22] MEDS: tPA-cathflo 2mg/2ml IV flush 4 MG in normal saline 100ml IV soln 100 ML ICATH SCH ×2 (08:24→17:25)
--- NOTE | 2019-02-22 08:30 | NUR ---
Patient to remain flat on back due to leaking/oozing sheath site (TPA/heparin). IR Boaz aware and is planning to take patient downstairs soon. Asked charge authorizer if I should log roll patient to change bloody sheets, she advised me not to, said she would wait since IR is taking the patient soon and site is leaking. Will continue to monitor.
[2019-02-22] MEDS: clopidogrel 75mg tablet PO SCH (09:19)
[2019-02-22] MEDS: amLODIPine 5mg tablet PO SCH (10:15)
[2019-02-22] MEDS ORDERED: gelatin sponge, absorbable (Gelfoam 12-7MM) sponge TP ONE ×2 (10:58→15:47)
--- NOTE | 2019-02-22 11:00 | NUR ---
Assisted pharmacy operations specialist Yelena to change sheath site dressing as it was saturated in blood. IR Boaz aware and at bedside at time of dressing change. New dressing clean dry and intact with no signs of oozing at this moment. pharmacy operations specialist wants patient to remain flat at this time (no turning for linen change) so as to not disrupt the site and cause it to bleed more. IR plans to picker operator patient later this afternoon around [id number]. Will continue to monitor patient closely.
--- NOTE | 2019-02-22 12:19 | NUR ---
New dressing has small amount of "oozing" present on the dressing. Outlined with marker.
--- NOTE | 2019-02-22 14:39 | NUR ---
Patient picked up and taken to IR.
[2019-02-22] MEDS ORDERED: midazolam 2 mg/2 ml injection ONE (14:45)
[2019-02-22] MEDS ORDERED: iohexol 300mg/ml 100ml inj. ONE (14:45)
[2019-02-22] MEDS ORDERED: heparin 1,000 UNITS/NS 500ml 500 ML ONE (14:45)
[2019-02-22] MEDS ORDERED: fentaNYL/PF 50MCG/1 ML 2ML syringe ONE (14:45)
[2019-02-22] MEDS ORDERED: LIDOcaine 1%/PF 5ML 10 MG/ML VIAL ONE (14:46)
--- NOTE | 2019-02-22 16:27 | NUR ---
Patient not in room for 1600 vitals and intake and output interventions.
--- NOTE | 2019-02-22 18:05 | NUR ---
Per IR team and Dr Christianson (at bedside) patient is okay to eat and drink tonight.
--- NOTE | 2019-02-22 18:23 | NUR ---
Problems reprioritized. Patient report given, questions answered & plan of care reviewed with Patricia LUX.
--- NOTE | 2019-02-22 18:23 | NUR ---
Patient in room CICU 2008. I have received report from day shift RN and had the opportunity to ask questions and assume patient care. Patient is awake alert & oriented, hard of hearing. Denies pain. Left groin with arterial sheath. Occlusive dressing with gauze below. Gauze with bloody drainage. Arterial sheath with TPA infusing @0.25mg/hr=6.25ml/hr(4mg TPA in 100ml NS). Heparin also infusing via left groin arterial sheath ( 1000U heparin/500ml) @ 40ml/hr. Left foot is cool, pink blotches. Left pedal pulse with doppler. Right foot is warm with doppler pedal/ posterior pulses. Left arm peripheral IV #20G with NS @ 60ml/hr. Denies pain on Dilaudid CADD pump.
--- NOTE | 2019-02-22 19:15 | NUR ---
Patient is eating heart healthy diet. Great appetite, independent with feeding.
[2019-02-22] MEDS: tamsulosin 0.4mg capsule PO SCH (20:18)
[2019-02-22] MEDS: normal saline 1000ml 1,000 ML IV SCH (21:47)
[2019-02-22 23:37] LABS: MEAN CORPUSCULAR HEMOGLOBIN 32.7 PG (27.0-31.0); MEAN CORPUSCULAR HGB CONC 34.3 g/dL (33.0-36.5); MEAN CORPUSCULAR VOLUME 95.4 FL (78-98); MEAN PLATELET VOLUME 6.8 FL (7.4-10.4); PLATELET COUNT 206 X10'3 (140-440); RED BLOOD COUNT 1.96 X10'6 (4.70-6.10); RED CELL DISTRIBUTION WIDTH 16.6 % (11.5-14.5); WHITE BLOOD COUNT 7.7 X10'3 (4.5-11.0)
[2019-02-22 23:45] LABS: HEMATOCRIT 18.7 % (42.0-52.0); HEMOGLOBIN 6.4 g/dl (14.0-17.9)
--- NOTE | 2019-02-22 23:49 | NUR ---
Call placed to Porter Schroeder regarding H & H results HGB 6.4 & HCT 18.7, remaining labs pending at this time. Orders received to type/cross & transfuse 1 unit PRBC.
[2019-02-23] VITALS (32 sets, daily range): BP systolic 107–142; BP diastolic 50–81
[2019-02-23] MEDS: HYDROmorphone/NS 1 mg/ml CADD 50 ML IV SCH ×12 (01:00→23:00)
--- NOTE | 2019-02-23 02:35 | NUR ---
[facility] started Unit [id number] A Neg expires 03/22/2019@ 3855
--- NOTE | 2019-02-23 03:24 | NUR ---
No evidence of blood transfusion reaction. Pt is awake watching TV. Blood infusing via warmer.
--- NOTE | 2019-02-23 04:39 | NUR ---
Blood transfusion complete. No evidence of transfusion reaction.
[2019-02-23 06:03] LABS: BASOPHILS % (AUTO) 0.5 % (0-1); EOSINOPHILS # (AUTO) 0.2 X10'3 (0-0.9); EOSINOPHILS % (AUTO) 3.1 % (0-6); LYMPHOCYTES # (AUTO) 0.9 X10'3 (1.1-4.8); MEAN CORPUSCULAR HEMOGLOBIN 32.4 PG (27.0-31.0); MEAN CORPUSCULAR HGB CONC 33.4 g/dL (33.0-36.5); MEAN CORPUSCULAR VOLUME 96.8 FL (78-98); MONOCYTES # (AUTO) 0.8 X10'3 (0-0.9); MONOCYTES % (AUTO) 10.3 % (2-12); NEUTROPHILS # (AUTO) 5.5 X10'3 (1.8-7.7); NEUTROPHILS % (AUTO) 74.1 % (42-75); PLATELET COUNT 198 X10'3 (140-440); RED BLOOD COUNT 2.13 X10'6 (4.70-6.10); RED CELL DISTRIBUTION WIDTH 15.9 % (11.5-14.5); WHITE BLOOD COUNT 7.5 X10'3 (4.5-11.0)
--- NOTE | 2019-02-23 06:20 | NUR ---
Patient in room CICU 2008. I have received report from Ashli LUX and had the opportunity to ask questions and assume patient care.
[2019-02-23 06:22] LABS: ALANINE AMINOTRANSFERASE 20 U/L (12-78); ALBUMIN 2.6 G/DL (3.4-5.0); ALBUMIN/GLOBULIN RATIO 0.8 (1.1-1.5); ALKALINE PHOSPHATASE 63 IU/L (46-116); ANION GAP 12 (8-16); ASPARTATE AMINO TRANSFERASE 11 U/L (10-37); BILIRUBIN,TOTAL 0.1 MG/DL (0.1-1.0); BLOOD UREA NITROGEN 30 MG/DL (7-18); BUN/CREATININE RATIO 24.6 (5.4-32.0); CALCIUM 7.6 MG/DL (8.5-10.1); CHLORIDE 114 MMOL/L (99-107); CREATININE 1.22 MG/DL (0.60-1.10); GLUCOSE 94 MG/DL (70-104); MAGNESIUM 1.5 MG/DL (1.5-2.4); POTASSIUM 4.6 MMOL/L (3.5-5.1); SODIUM 142 MMOL/L (135-145); TOTAL CARBON DIOXIDE 15.8 MMOL/L (24-32); eGFR 57 ML/MIN
[2019-02-23 06:23] LABS: HEMATOCRIT 20.6 % (42.0-52.0); HEMOGLOBIN 6.9 g/dl (14.0-17.9)
--- NOTE | 2019-02-23 06:25 | NUR ---
Problems reprioritized. Patient report given, questions answered & plan of care reviewed with Gerson LUX.
[2019-02-23] MEDS ORDERED: heparin 1,000 UNITS/NS 500ml 500 ML ICATH ONE (06:35)
[2019-02-23] MEDS: clopidogrel 75mg tablet PO SCH (07:38)
[2019-02-23] MEDS: amLODIPine 5mg tablet PO SCH (07:38)
[2019-02-23] MEDS: ferrous sulfate 325mg tablet PO SCH (07:38)
[2019-02-23] MEDS: gabapentin 300mg capsule PO SCH ×2 (07:38→20:05)
[2019-02-23] MEDS: multivitamins, therapeutics tablet PO SCH (07:39)
[2019-02-23] MEDS: K and/or MAG REPLACEMENT MC SCH (08:00)
[2019-02-23] MEDS: tPA-cathflo 2mg/2ml IV flush 4 MG in normal saline 100ml IV soln 100 ML ICATH SCH (09:22)
[2019-02-23] MEDS: normal saline 1000ml 1,000 ML IV SCH (10:44)
[2019-02-23] MEDS ORDERED: iohexol 300 MG/1 ML 50ml polymer ONE (10:56)
[2019-02-23] MEDS ORDERED: LIDOcaine 1%/PF 5ML 10 MG/ML VIAL ONE (11:36)
[2019-02-23] MEDS: WATER IV SCH (15:05)
[2019-02-23] MEDS: SODIUM BICARBONATE IV SCH (15:05)
[2019-02-23] MEDS: DEXTROSE 5% IV SCH (15:05)
--- NOTE | 2019-02-23 16:00 | NUR ---
Problems reprioritized. Patient report given, questions answered & plan of care reviewed with Jeniffer LUX.
--- NOTE | 2019-02-23 16:08 | NUR ---
Received report from MACI Yin in the CICU. Patient is currently stable and will transfer up to us when his blood transfusion is complete.
--- NOTE | 2019-02-23 17:35 | NUR ---
Patient transferred to surgical unit room 350B. All patient belongings sent with patient. Patient was escorted to surgical via nurse's aide in wheelchair; family updated.
--- NOTE | 2019-02-23 17:41 | NUR ---
Patient received form CICU. Patient is alert and oriented and vitals are stable.
--- NOTE | 2019-02-23 18:30 | NUR ---
Problems reprioritized. Patient report given, questions answered & plan of care reviewed with MACI Devine.
--- NOTE | 2019-02-23 18:30 | NUR ---
Patient in room NILE 350. I have received report from Jeniffer LUX and had the opportunity to ask questions and assume patient care.
[2019-02-23] MEDS: tamsulosin 0.4mg capsule PO SCH (20:05)
[2019-02-23] MEDS: apixaban 5mg tablet PO SCH (20:05)
[2019-02-24] VITALS: BP 109/57
[2019-02-24] MEDS: SODIUM BICARBONATE IV SCH (00:45)
[2019-02-24] MEDS: DEXTROSE 5% IV SCH (00:45)
[2019-02-24] MEDS: WATER IV SCH (00:45)
[2019-02-24] MEDS: HYDROmorphone/NS 1 mg/ml CADD 50 ML IV SCH ×3 (00:47→05:00)
[2019-02-24 04:07] VITALS: BP 121/48
--- NOTE | 2019-02-24 05:00 | NUR ---
Cadd pump d/c at this time. Pt will be assessed for pain frequently and medicated with pain medications as ordered when needed.
[2019-02-24 05:26] LABS: BASOPHILS % (AUTO) 0.2 % (0-1); EOSINOPHILS # (AUTO) 0.2 X10'3 (0-0.9); EOSINOPHILS % (AUTO) 3.9 % (0-6); HEMOGLOBIN 7.8 g/dl (14.0-17.9); MEAN CORPUSCULAR HEMOGLOBIN 33.5 PG (27.0-31.0); MEAN CORPUSCULAR HGB CONC 35.8 g/dL (33.0-36.5); MEAN CORPUSCULAR VOLUME 93.5 FL (78-98); MEAN PLATELET VOLUME 7.3 FL (7.4-10.4); MONOCYTES # (AUTO) 0.7 X10'3 (0-0.9); MONOCYTES % (AUTO) 10.5 % (2-12); NEUTROPHILS # (AUTO) 4.4 X10'3 (1.8-7.7); NEUTROPHILS % (AUTO) 69.4 % (42-75); PLATELET COUNT 177 X10'3 (140-440); RED BLOOD COUNT 2.32 X10'6 (4.70-6.10); RED CELL DISTRIBUTION WIDTH 16.7 % (11.5-14.5); WHITE BLOOD COUNT 6.3 X10'3 (4.5-11.0)
[2019-02-24 05:35] LABS: ALANINE AMINOTRANSFERASE 18 U/L (12-78); ALBUMIN 2.4 G/DL (3.4-5.0); ALBUMIN/GLOBULIN RATIO 0.7 (1.1-1.5); ALKALINE PHOSPHATASE 67 IU/L (46-116); ANION GAP 9 (8-16); ASPARTATE AMINO TRANSFERASE 16 U/L (10-37); BILIRUBIN,TOTAL 0.2 MG/DL (0.1-1.0); BLOOD UREA NITROGEN 24 MG/DL (7-18); BUN/CREATININE RATIO 18.5 (5.4-32.0); CALCIUM 7.6 MG/DL (8.5-10.1); CHLORIDE 111 MMOL/L (99-107); GLUCOSE 96 MG/DL (70-104); MAGNESIUM 1.5 MG/DL (1.5-2.4); SODIUM 139 MMOL/L (135-145); TOTAL CARBON DIOXIDE 19.3 MMOL/L (24-32); TOTAL PROTEIN 5.8 G/DL (6.4-8.2); eGFR 53 ML/MIN
[2019-02-24 05:39] LABS: HEMATOCRIT 21.7 % (42.0-52.0)
--- NOTE | 2019-02-24 06:24 | NUR ---
Problems reprioritized. Patient report given, questions answered & plan of care reviewed with Judy LUX.
--- NOTE | 2019-02-24 06:26 | NUR ---
Patient in room NILE 350. I have received report from MAO LUX and had the opportunity to ask questions and assume patient care.
[2019-02-24 07:00] VITALS: BP 122/73
[2019-02-24] MEDS: multivitamins, therapeutics tablet PO SCH (08:34)
[2019-02-24] MEDS: amLODIPine 5mg tablet PO SCH (08:34)
[2019-02-24] MEDS: gabapentin 300mg capsule PO SCH (08:34)
[2019-02-24] MEDS: apixaban 5mg tablet PO SCH (08:34)
[2019-02-24] MEDS: clopidogrel 75mg tablet PO SCH (08:34)
[2019-02-24] MEDS: ferrous sulfate 325mg tablet PO SCH (08:40)
[2019-02-24] MEDS ORDERED: HYDR-4383 PO (09:52)
[2019-02-24 11:00] VITALS: BP 121/61
[2019-02-24 11:40] VITALS: BP 119/52
[2019-02-24] MEDS ORDERED: tamsulosin capsule PO (12:10)
== END 2019-02-24 12:38 | disposition home health service (06) | DRG 253 ==
LOC: ER 11:35 → SUR 3N 18:11 → ICU 2S 02-21 17:43 → CICU 2S 02-22 05:22 → SUR 3N 02-23 17:20
PROVIDERS: ADMIT Internal Medicine; ATTEND Internal Medicine
PROC: B4201ZZ Computerized Tomography (CT Scan) of Abdominal Aorta using Low Osmolar Contrast (ICD-10-PCS; 2019-02-20)
PROC: B42C1ZZ Computerized Tomography (CT Scan) of Pelvic Arteries using Low Osmolar Contrast (ICD-10-PCS; 2019-02-20)
PROC: B42H1ZZ Computerized Tomography (CT Scan) of Bilateral Lower Extremity Arteries using Low Osmolar Contrast (ICD-10-PCS; 2019-02-20)
PROC: B41F1ZZ Fluoroscopy of Right Lower Extremity Arteries using Low Osmolar Contrast (ICD-10-PCS; 2019-02-21)
PROC: 3E05317 Introduction of Other Thrombolytic into Peripheral Artery, Percutaneous Approach (ICD-10-PCS; 2019-02-21)
PROC: 047T3ZZ Dilation of Right Peroneal Artery, Percutaneous Approach (ICD-10-PCS; principal; 2019-02-22)
PROC: B41F1ZZ Fluoroscopy of Right Lower Extremity Arteries using Low Osmolar Contrast (ICD-10-PCS; 2019-02-22)
PROC: 30233N1 Transfusion of Nonautologous Red Blood Cells into Peripheral Vein, Percutaneous Approach (ICD-10-PCS; 2019-02-23)
PROC: B41F1ZZ Fluoroscopy of Right Lower Extremity Arteries using Low Osmolar Contrast (ICD-10-PCS; 2019-02-23)
DX: T82.868A Thrombosis due to vascular prosthetic devices, implants and grafts, initial encounter (principal); E87.2 Acidosis; D62 Acute posthemorrhagic anemia; I73.9 Peripheral vascular disease, unspecified; D63.8 Anemia in other chronic diseases classified elsewhere; Y83.2 Surgical operation with anastomosis, bypass or graft as the cause of abnormal reaction of the patient, or of later complication, without mention of misadventure at the time of the procedure; E87.5 Hyperkalemia; G62.9 Polyneuropathy, unspecified; I12.9 Hypertensive chronic kidney disease with stage 1 through stage 4 chronic kidney disease, or unspecified chronic kidney disease; I99.8 Other disorder of circulatory system; N18.3 Chronic kidney disease, stage 3 (moderate); Z87.891 Personal history of nicotine dependence; Z79.899 Other long term (current) drug therapy; Y92.89 Other specified places as the place of occurrence of the external cause; Z86.718 Personal history of other venous thrombosis and embolism; Z79.01 Long term (current) use of anticoagulants
CPT/HCPCS: 36247; 36415; 37211; 37213; 37214; 71045; 73706; 75710; 76937; 80053; 83735; 85025; 85027; 85384; 85610; 85730; 86885; 86900; 86901; 86922; 87070; 93005; 96361; 96365; 99152; 99153; 99285; C1725; C1751; C1760; C1769; C1894; G0378; J1170; J1644; J2001; J2250; J2997; J3010; J7030; P9016; Q9967

== ENCOUNTER 2020-02-15 18:27 | Emergency (ER) | payer MEDICARE, OTHER ==
[~2020-02-15] VITALS: Ht 170.2 cm; Wt 79.1 kg
[~2020-02-15 18:27] MED LIST changes: +FERR-39 PO; -HYDR-3965 PO; -LACT1CAP26 PO; +LISI-600 PO; -LISI40TA4 PO; +MULT-1141 PO
[2020-02-15] MEDS ORDERED: normal saline 1000ml 1,000 ML IV ONE (18:39)
[2020-02-15 18:58] LABS: BASOPHILS % (AUTO) 0.3 % (0-1); EOSINOPHILS # (AUTO) 0.1 X10'3 (0-0.9); EOSINOPHILS % (AUTO) 1.4 % (0-6); HEMOGLOBIN 10.8 g/dl (14.0-17.9); LYMPHOCYTES # (AUTO) 1.2 X10'3 (1.1-4.8); LYMPHOCYTES % (AUTO) 11.8 % (21-51); MEAN CORPUSCULAR HGB CONC 32.6 g/dL (33.0-36.5); MEAN PLATELET VOLUME 7.6 FL (7.4-10.4); MONOCYTES # (AUTO) 0.6 X10'3 (0-0.9); NEUTROPHILS # (AUTO) 8.4 X10'3 (1.8-7.7); NEUTROPHILS % (AUTO) 80.5 % (42-75); PLATELET COUNT 304 X10'3 (140-440); RED BLOOD COUNT 3.58 X10'6 (4.70-6.10); RED CELL DISTRIBUTION WIDTH 16.9 % (11.5-14.5); WHITE BLOOD COUNT 10.4 X10'3 (4.5-11.0)
--- NOTE | 2020-02-15 19:01 | NUR ---
pt refusing to provide urine lucila
[2020-02-15 19:11] LABS: ALANINE AMINOTRANSFERASE 16 U/L (12-78); ALBUMIN 3.4 G/DL (3.4-5.0); ALBUMIN/GLOBULIN RATIO 0.9 (1.1-1.5); ALKALINE PHOSPHATASE 75 IU/L (46-116); ANION GAP 12 (8-16); ASPARTATE AMINO TRANSFERASE 14 U/L (10-37); BILIRUBIN,TOTAL 0.2 MG/DL (0.1-1.0); BLOOD UREA NITROGEN 41 MG/DL (7-18); BUN/CREATININE RATIO 20.9 (5.4-32.0); CALCIUM 8.4 MG/DL (8.5-10.1); CHLORIDE 110 MMOL/L (99-107); CREATININE 1.96 MG/DL (0.60-1.10); GLUCOSE 106 MG/DL (70-104); POTASSIUM 4.8 MMOL/L (3.5-5.1); SODIUM 141 MMOL/L (135-145); TOTAL CARBON DIOXIDE 19.4 MMOL/L (24-32); TOTAL PROTEIN 7.4 G/DL (6.4-8.2); eGFR 33 ML/MIN
[2020-02-15 19:17] LABS: MAGNESIUM 1.9 MG/DL (1.5-2.4)
--- NOTE | 2020-02-15 19:36 | NUR ---
pts son is Gerson his phone number is [phone]
[2020-02-15] MEDS ORDERED: mag hydrox/Alum hydrox/simeth 30ml oral suspension PO ONE (19:55)
--- NOTE | 2020-02-15 20:11 | NUR ---
pt not able to urinate yet. states he doesn't feel even an inkling of a need to urinate.
[2020-02-15] MEDS ORDERED: ONDA4TAB6 PO (20:47)
--- NOTE | 2020-02-15 20:47 | NUR ---
unable to reach son, to shrimp picker patient for discharge. left message.
--- NOTE | 2020-02-15 21:10 | NUR ---
CALLED [facility] AT 21:07 ETA 40 MINS
[2020-02-15 21:14] VITALS: BP 138/81
--- NOTE | 2020-02-15 21:16 | NUR ---
per Dr. Lara, will not need to collect a UA.
== END 2020-02-15 22:12 | disposition home or self-care (01) ==
LOC: ER 18:27
DX: T67.9XXA Effect of heat and light, unspecified, initial encounter (principal); N18.9 Chronic kidney disease, unspecified; E86.0 Dehydration; R53.1 Weakness; I10 Essential (primary) hypertension; Z86.718 Personal history of other venous thrombosis and embolism; Z72.89 Other problems related to lifestyle; Z79.899 Other long term (current) drug therapy; X30.XXXA Exposure to excessive natural heat, initial encounter; Y93.89 Activity, other specified; Y99.8 Other external cause status; Y92.828 Other wilderness area as the place of occurrence of the external cause
CPT/HCPCS: 36415; 71045; 80053; 83735; 83880; 84484; 85025; 93005; 96360; 96361; 99285; J7030

== ENCOUNTER 2021-08-14 09:18 | Emergency (ER) | payer MEDICARE, OTHER ==
[~2021-08-14] VITALS: Ht 172.7 cm; Wt 81.3 kg
[~2021-08-14 09:18] MED LIST changes: -LISI-600 PO; +LISI20TA28 PO; +ONDA4TAB6 PO
[2021-08-14 09:30] VITALS: BP 136/87
[2021-08-14] MEDS ORDERED: normal saline 1000ml 1,000 ML IV ONE (10:10)
[2021-08-14 10:17] LABS: BASOPHILS % (AUTO) 0.2 % (0-1); EOSINOPHILS # (AUTO) 0.2 X10'3 (0-0.9); EOSINOPHILS % (AUTO) 2.3 % (0-6); HEMATOCRIT 33.7 % (42.0-52.0); HEMOGLOBIN 11.4 g/dl (14.0-17.9); LYMPHOCYTES % (AUTO) 26.6 % (21-51); MEAN CORPUSCULAR HEMOGLOBIN 31.8 PG (27.0-31.0); MEAN CORPUSCULAR HGB CONC 33.9 g/dL (33.0-36.5); MEAN CORPUSCULAR VOLUME 93.9 FL (78-98); MEAN PLATELET VOLUME 7.5 FL (7.4-10.4); MONOCYTES # (AUTO) 0.6 X10'3 (0-0.9); MONOCYTES % (AUTO) 7.6 % (2-12); NEUTROPHILS # (AUTO) 4.8 X10'3 (1.8-7.7); NEUTROPHILS % (AUTO) 63.3 % (42-75); PLATELET COUNT 348 X10'3 (140-440); RED BLOOD COUNT 3.59 X10'6 (4.70-6.10); RED CELL DISTRIBUTION WIDTH 14.5 % (11.5-14.5); WHITE BLOOD COUNT 7.6 X10'3 (4.5-11.0)
[2021-08-14 10:18] LABS: CLARITY,URINE CLEAR (Clear); GLUCOSE, URINE NEGATIVE (Neg); KETONES,URINE NEGATIVE (Neg); LEUKOCYTE ESTERASE ,URINE NEGATIVE (Neg); NITRITES, URINE NEGATIVE (Neg); OCCULT BLOOD,URINE NEGATIVE (Neg); PROTEIN,URINE 100 mg/dl (Neg); UROBILINOGEN,URINE 0.2 E.U/dL (0.2-1.0)
[2021-08-14 10:19] LABS: COLOR,URINE STRAW (Yellow); UA COLLECTION TYPE NON-SPECIFIED
[2021-08-14 10:27] LABS: BACTERIA,URINE NONE SEEN /HPF (Neg); SQUAMOUS EPITHELIAL CELL,UR NONE SEEN /LPF (FEW)
[2021-08-14 10:34] LABS: PARTIAL THROMBOPLASTIN TIME 26 SECONDS (22-32)
[2021-08-14 10:35] LABS: RBC,URINE 0-2 /HPF (0-2)
[2021-08-14 10:36] LABS: WBC,URINE 0-4 /HPF (0-4)
[2021-08-14] MEDS: tranexamic acid 100mg/ml inj. IV ONE ×2 (10:39→10:58)
[2021-08-14 10:44] LABS: ALANINE AMINOTRANSFERASE 21 U/L (12-78); ALBUMIN 3.5 G/DL (3.4-5.0); ALBUMIN/GLOBULIN RATIO 0.7 (1.1-1.5); ALKALINE PHOSPHATASE 76 IU/L (46-116); ANION GAP 8 (8-16); ASPARTATE AMINO TRANSFERASE 18 U/L (10-37); BILIRUBIN,TOTAL 0.2 MG/DL (0.1-1.0); BLOOD UREA NITROGEN 27 MG/DL (7-18); BUN/CREATININE RATIO 15.2 (5.4-32.0); CALCIUM 9.1 MG/DL (8.5-10.1); CHLORIDE 108 MMOL/L (99-107); CREATININE 1.78 MG/DL (0.60-1.10); GLUCOSE 97 MG/DL (70-104); POTASSIUM 4.9 MMOL/L (3.5-5.1); SODIUM 140 MMOL/L (135-145); TOTAL CARBON DIOXIDE 24.4 MMOL/L (24-32); TOTAL PROTEIN 8.2 G/DL (6.4-8.2); eGFR 36 ML/MIN
[2021-08-14] MEDS ORDERED: TRANEXAMIC ACID 1 GM IN NACL,ISO-OS 100 ML IV ONE (10:46)
--- NOTE | 2021-08-14 10:48 | NUR ---
push dose IV wasted per pharmacy d/t no push dose instructions. pharmacy will provide med.
--- NOTE | 2021-08-14 11:31 | NUR ---
PT UP TO BSC WITH STEADY GAIT, LARGE FORMED BM NOTED WITH SOME BLOOD. PT DENIES PAIN IN ABD. RETURNED TO BED WITHOUT INCIDENT.
--- NOTE | 2021-08-14 11:40 | NUR ---
LAB REPORTED PT HAS AUTOIMMUNE CONDITION KNIWN COLD AGGLUTININ. MD PEPPER NOTIFIED. NO NEW ORDERS GIVEN.
--- NOTE | 2021-08-14 11:53 | NUR ---
DR. PEPPER AT BEDSIDE FOR D/C
--- NOTE | 2021-08-14 12:01 | NUR ---
CALLED DAUGHTER FOR PT RIDE
== END 2021-08-14 13:15 | disposition home or self-care (01) ==
LOC: ER 09:19
DX: K62.5 Hemorrhage of anus and rectum (principal); I10 Essential (primary) hypertension; Z86.718 Personal history of other venous thrombosis and embolism; Z72.89 Other problems related to lifestyle; Z79.899 Other long term (current) drug therapy
CPT/HCPCS: 36415; 71045; 80053; 81001; 85025; 85610; 85730; 86885; 86900; 86901; 93005; 96361; 96365; 99285; J3490; J7030; 96366

== ENCOUNTER 2022-10-23 08:57 | Inpatient (IN) | payer MEDICARE, OTHER ==
[2022-10-23] VITALS (10 sets, daily range): BP systolic 131–164; BP diastolic 68–110
[~2022-10-23] VITALS: Ht 170.2 cm; Wt 78.0 kg
[2022-10-23] MEDS ORDERED: normal saline 1000ML IV soln IVB ONE (10:30)
[2022-10-23] MEDS ORDERED: heparin 10,000 units/1 ML INJ IV ONE (10:35)
[2022-10-23] MEDS ORDERED: heparin 25,000 UNIT/250ml bag 250 ML IV PRN (10:35)
[2022-10-23 11:13] LABS: BASOPHILS % (AUTO) 0.3 % (0-1); EOSINOPHILS # (AUTO) 0.1 X10'3 (0-0.9); EOSINOPHILS % (AUTO) 1.3 % (0-6); HEMATOCRIT 35.4 % (42.0-52.0); HEMOGLOBIN 11.3 g/dl (14.0-17.9); LYMPHOCYTES # (AUTO) 1.8 X10'3 (1.1-4.8); LYMPHOCYTES % (AUTO) 22.4 % (21-51); MEAN CORPUSCULAR HEMOGLOBIN 31.5 PG (27.0-31.0); MEAN CORPUSCULAR HGB CONC 31.9 g/dL (33.0-36.5); MEAN CORPUSCULAR VOLUME 98.6 FL (78-98); MEAN PLATELET VOLUME 7.1 FL (7.4-10.4); MONOCYTES # (AUTO) 0.6 X10'3 (0-0.9); MONOCYTES % (AUTO) 7.1 % (2-12); NEUTROPHILS # (AUTO) 5.6 X10'3 (1.8-7.7); NEUTROPHILS % (AUTO) 68.9 % (42-75); PLATELET COUNT 386 X10'3 (140-440); RED BLOOD COUNT 3.59 X10'6 (4.70-6.10); RED CELL DISTRIBUTION WIDTH 14.9 % (11.5-14.5); WHITE BLOOD COUNT 8.1 X10'3 (4.5-11.0)
[2022-10-23 11:22] LABS: APTT 25 SECONDS (22-32)
[2022-10-23 11:26] LABS: ALANINE AMINOTRANSFERASE 15 U/L (12-78); ALBUMIN 3.9 G/DL (3.4-5.0); ALBUMIN/GLOBULIN RATIO 0.9 (1.1-1.5); ALKALINE PHOSPHATASE 68 IU/L (46-116); ANION GAP 10 (8-16); ASPARTATE AMINO TRANSFERASE 16 U/L (10-37); BILIRUBIN,TOTAL 0.3 MG/DL (0.1-1.0); BLOOD UREA NITROGEN 28 MG/DL (7-18); BUN/CREATININE RATIO 16.6 (5.4-32.0); CALCIUM 8.7 MG/DL (8.5-10.1); CHLORIDE 106 MMOL/L (99-107); CREATININE 1.69 MG/DL (0.60-1.10); GLUCOSE 95 MG/DL (70-104); POTASSIUM 4.9 MMOL/L (3.5-5.1); SODIUM 137 MMOL/L (135-145); TOTAL CARBON DIOXIDE 21.3 MMOL/L (24-32); TOTAL PROTEIN 8.3 G/DL (6.4-8.2); eGFR 38 ML/MIN
[2022-10-23] MEDS ORDERED: iohexol 350MG/ML 100ml bottle IV ONE (11:50)
[2022-10-23] MEDS ORDERED: iohexol 350 MG/ML 50ML vial IV ONE (11:50)
[2022-10-23] MEDS ORDERED: LOSA50TA64 PO (13:29)
[2022-10-23] MEDS ORDERED: AMLO-708 PO (13:31)
[2022-10-23] MEDS ORDERED: HYDROcodone/acetaminophen 5mg/325mg tablet PO PRN (13:35)
[2022-10-23] MEDS ORDERED: morphine 2 MG/ML inj. syringe IV PRN (13:35)
[2022-10-23] MEDS ORDERED: magnesium hydroxide 30ml (MOM) UD suspension PO PRN (13:35)
[2022-10-23] MEDS ORDERED: potassium Cl 20 mEq SR tablet PO PRN ×2 (13:35)
[2022-10-23] MEDS ORDERED: ondansetron/PF 4mg/2ml inj IV PRN (13:35)
[2022-10-23] MEDS ORDERED: mag hydrox/Alum hydrox/simeth 30ml oral suspension PO PRN (13:35)
[2022-10-23] MEDS ORDERED: magnesium Cl slow-release 64mg tablet PO PRN (13:35)
[2022-10-23] MEDS ORDERED: acetaminophen 325mg tablet PO PRN (13:35)
[2022-10-23] MEDS ORDERED: potassium Cl 40MEQ/1/2NS 520ml 520 ML IV PRN (13:35)
[2022-10-23] MEDS ORDERED: HYDROcodone/acetaminophen 10/325mg tab PO PRN (13:35)
[2022-10-23] MEDS ORDERED: magnesium 4gm in 100ml NS 100 ML IV PRN (13:35)
[2022-10-23] MEDS ORDERED: heparin 1,000 UNITS/NS 500ml 500 ML ONE (14:41)
[2022-10-23] MEDS ORDERED: midazolam 1 mg/ML 2ml injection ONE (14:41)
[2022-10-23] MEDS ORDERED: iohexol 300mg/ml 100ml inj. ONE (14:41)
[2022-10-23] MEDS ORDERED: fentaNYL/PF 50MCG/1 ML 2ML syringe ONE (14:41)
[2022-10-23] MEDS ORDERED: LIDOcaine 1% 30ml preserv. free vial ONE (14:42)
[2022-10-23] MEDS ORDERED: diphenhydrAMINE 50 mg/ml inj ONE (15:15)
--- NOTE | 2022-10-23 16:38 | NUR ---
PAGER ID: [phone] MESSAGE: Ciro Merchant in [phone] - Pt just arrived to floor from Angio. Pt not on heparin gtt. Do you want heparin gtt restarted? -Carmen [phone]
[2022-10-23] MEDS: normal saline 1000ml 1,000 ML IV SCH (17:15)
--- NOTE | 2022-10-23 17:52 | NUR ---
RONNIE Christianson regarding heparin gtt. Orders received to discontine heparin gtt and advance diet as tolerated.
--- NOTE | 2022-10-23 18:27 | NUR ---
Problems reprioritized. Patient report given, questions answered & plan of care reviewed with
--- NOTE | 2022-10-23 19:26 | NUR ---
Spoke to Dr. Ovalle at this time regarding pt HR. Post op vitals indicated HR was in the 60s while his HR was 120s when I entered the room. Pt states that he "feels perfectly normal." Pt is not symptomatic at this time. EKG done at this time. No new orders from .
[2022-10-23] MEDS: K and/or MAG REPLACEMENT MC SCH (20:00)
[2022-10-23] MEDS: docusate sod 100mg capsule PO SCH (20:00)
[2022-10-24 06:35] LABS: BASOPHILS % (AUTO) 0.3 % (0-1); EOSINOPHILS # (AUTO) 0.2 X10'3 (0-0.9); EOSINOPHILS % (AUTO) 1.7 % (0-6); HEMATOCRIT 29.4 % (42.0-52.0); HEMOGLOBIN 9.8 g/dl (14.0-17.9); LYMPHOCYTES # (AUTO) 1.1 X10'3 (1.1-4.8); LYMPHOCYTES % (AUTO) 11.1 % (21-51); MEAN CORPUSCULAR HEMOGLOBIN 32.7 PG (27.0-31.0); MEAN CORPUSCULAR HGB CONC 33.3 g/dL (33.0-36.5); MEAN CORPUSCULAR VOLUME 98.2 FL (78-98); MEAN PLATELET VOLUME 8.1 FL (7.4-10.4); MONOCYTES # (AUTO) 0.8 X10'3 (0-0.9); MONOCYTES % (AUTO) 7.9 % (2-12); NEUTROPHILS # (AUTO) 7.9 X10'3 (1.8-7.7); PLATELET COUNT 330 X10'3 (140-440); RED BLOOD COUNT 2.99 X10'6 (4.70-6.10); RED CELL DISTRIBUTION WIDTH 14.6 % (11.5-14.5)
[2022-10-24 06:58] LABS: ALANINE AMINOTRANSFERASE 16 U/L (12-78); ALKALINE PHOSPHATASE 59 IU/L (46-116); ANION GAP 10 (8-16); ASPARTATE AMINO TRANSFERASE 17 U/L (10-37); BILIRUBIN,TOTAL 0.3 MG/DL (0.1-1.0); BLOOD UREA NITROGEN 25 MG/DL (7-18); BUN/CREATININE RATIO 14.9 (5.4-32.0); CALCIUM 8.1 MG/DL (8.5-10.1); CHLORIDE 108 MMOL/L (99-107); CREATININE 1.68 MG/DL (0.60-1.10); GLUCOSE 92 MG/DL (70-104); POTASSIUM 4.4 MMOL/L (3.5-5.1); SODIUM 137 MMOL/L (135-145); TOTAL CARBON DIOXIDE 19.5 MMOL/L (24-32); eGFR 39 ML/MIN
--- NOTE | 2022-10-24 07:01 | NUR ---
Patient in room NILE 352. I have received report from SONDRA LUX and had the opportunity to ask questions and assume patient care.
[2022-10-24 07:03] LABS: ALBUMIN 3.3 G/DL (3.4-5.0); ALBUMIN/GLOBULIN RATIO 0.9 (1.1-1.5)
[2022-10-24 07:07] VITALS: BP 129/50
[2022-10-24] MEDS: docusate sod 100mg capsule PO SCH (07:59)
[2022-10-24] MEDS: K and/or MAG REPLACEMENT MC SCH (08:00)
[2022-10-24] MEDS: normal saline 1000ml 1,000 ML IV SCH (08:37)
[2022-10-24 10:00] VITALS: BP 150/70
--- NOTE | 2022-10-24 13:31 | NUR ---
Patient discharged home at this time with family. Patients IV taken out at this time canula whole and intact upon inspection. Site showed minimal bleeding. Patient was educated on things to watch for post procedure issues such as infection, or bleeding. Patient discharge home into the care of his family at this time. Patient left with all belongings in a wheelchair at this time.
== END 2022-10-24 13:18 | disposition home or self-care (01) | DRG 316 ==
LOC: ER 08:58 → ED HOLD 13:48 → UNDOADMIN 14:18 → SUR 3N 16:20 → ED HOLD 16:20 → UNDODISIN 10-24 13:18
PROVIDERS: ADMIT Internal Medicine; ATTEND Internal Medicine
PROC: B41C1ZZ Fluoroscopy of Pelvic Arteries using Low Osmolar Contrast (ICD-10-PCS; principal; 2022-10-23)
PROC: B41F1ZZ Fluoroscopy of Right Lower Extremity Arteries using Low Osmolar Contrast (ICD-10-PCS; 2022-10-23)
PROC: B4201ZZ Computerized Tomography (CT Scan) of Abdominal Aorta using Low Osmolar Contrast (ICD-10-PCS; 2022-10-23)
PROC: B4241ZZ Computerized Tomography (CT Scan) of Superior Mesenteric Artery using Low Osmolar Contrast (ICD-10-PCS; 2022-10-23)
PROC: B4281ZZ Computerized Tomography (CT Scan) of Bilateral Renal Arteries using Low Osmolar Contrast (ICD-10-PCS; 2022-10-23)
PROC: B42C1ZZ Computerized Tomography (CT Scan) of Pelvic Arteries using Low Osmolar Contrast (ICD-10-PCS; 2022-10-23)
PROC: B42H1ZZ Computerized Tomography (CT Scan) of Bilateral Lower Extremity Arteries using Low Osmolar Contrast (ICD-10-PCS; 2022-10-23)
PROC: B4211ZZ Computerized Tomography (CT Scan) of Celiac Artery using Low Osmolar Contrast (ICD-10-PCS; 2022-10-23)
DX: T82.868A Thrombosis due to vascular prosthetic devices, implants and grafts, initial encounter (principal); D64.9 Anemia, unspecified; I70.211 Atherosclerosis of native arteries of extremities with intermittent claudication, right leg; I12.9 Hypertensive chronic kidney disease with stage 1 through stage 4 chronic kidney disease, or unspecified chronic kidney disease; Y83.2 Surgical operation with anastomosis, bypass or graft as the cause of abnormal reaction of the patient, or of later complication, without mention of misadventure at the time of the procedure; N18.30 Chronic kidney disease, stage 3 unspecified; Z79.01 Long term (current) use of anticoagulants; Z86.718 Personal history of other venous thrombosis and embolism; Z87.891 Personal history of nicotine dependence; Z79.899 Other long term (current) drug therapy; Y92.89 Other specified places as the place of occurrence of the external cause
CPT/HCPCS: 36160; 36245; 36415; 75635; 75710; 80053; 83735; 85025; 85610; 85730; 86885; 86900; 86901; 87081; 93005; 93306; 93926; 96361; 96365; 96376; 99291; A4620; C1760; C1769; C1894; G0378; J1200; J1644; J2250; J3010; J3490; J7030; J7040; Q9967